=== PATIENT | female | born 1980 ===

== ENCOUNTER 2024-09-28 00:21 | Outpatient (CLI) | payer BC, SELFPAY ==
--- NOTE | 2024-09-28 | DI.MAMMO_ITS ---
Exam(s) MG MAMMO SCREENING 60 MIN DUR EXAM: MG MAMMO SCREENING 60 MIN DUR CLINICAL HISTORY: Screening, Z12.31; pt has trouble standing, cannot sit in a backless chair TECHNIQUE: Mammograms were interpreted according to the usual protocol including computer analysis with CAD system, tomosynthesis and C-view imaging. COMPARISON: None FINDINGS: The breasts are composed of mainly fatty density , Breast Density category A. Positioning was challenging due to patient inability to stand. Exam was performed in a wheelchair. No suspicious masses or suspicious microcalcifications are seen. No skin thickening or abnormal axillary lymph nodes are seen. IMPRESSION: BI-RADS Category 1, Negative mammogram Yearly screening mammography is recommended. Breast Density- Category A - The breast are almost entirely fatty. Breast density Category C or D implies that the patient has dense breast tissue. Dense breast tissue can make it harder to find cancer on a mammogram. Dense breast tissue is also associated with an increased risk of breast cancer. This information about the result of the mammogram report was provided to the patient to raise their awareness. Use this report when you speak with the patient about their risks for breast cancer, which includes their family history. At that time, you may recommend additional screening tests (Ultrasound or MRI) as these tests may add significant information. A negative radiographic report should not delay biopsy if a dominant or clinically suspicious mass is present. Up to ten percent of cancers are not identified on mammography. A negative report may reinforce clinical impression. Adenosis and dense breasts may obscure an underlying neoplasm. False positive reports average 6 to 10%. Patient will receive a letter notifying them of these results.
== END 2024-09-28 00:41 ==
PROVIDERS: PCP Nurse Practitioner Family; Visit Provider Nurse Practitioner Family
DX: Z12.31 Encounter for screening mammogram for malignant neoplasm of breast (principal); R92.313 Mammographic fatty tissue density, bilateral breasts
CPT/HCPCS: 77063; 77067

== ENCOUNTER 2025-01-01 04:54 | Outpatient (CLI) | payer BC, SELFPAY ==
[2025-01-01 14:09] LABS: Abs Immature Grans 0.10 10^3/uL (0.0-0.06); HCT 29.3 % (36.0-46.0); HGB 9.7 g/dL (11.2-15.7); MCH 29.7 pg (27.0-33.0); MCHC 33.1 % (32.0-36.0); MCV 90 fL (80-95); MPV 9.6 fL (8.0-11.0); Platelet Count 106 10^3/uL (130-400); RBC 3.27 10^6/uL (3.93-5.22); RDW 16.1 % (11.7-14.6); RDW-SD 53.2 fL; WBC 9.62 10^3/uL (4.4-10.8)
[2025-01-01 14:38] LABS: Immature Grans % 0.0 %; RBC Morphology Normal
[2025-01-01 14:45] LABS: ALT 30 U/L (14-59); AST 31 U/L (15-37); Albumin 1.8 g/dL (3.4-5.0); Alkaline Phosphatase 144 U/L (46-116); Anion Gap 9.8 mmol/L (3-11); BUN 9 mg/dL (7-18); Bilirubin, Total 2.1 mg/dL (0.2-1.0); CO2 28.2 mmol/L (21.0-32.0); Calcium 8.7 mg/dL (8.5-10.1); Chloride 95 mmol/L (98-107); Estimated GFR 148.75 (mL/min/1.73m2); Glucose 93 mg/dL (74-106); Potassium 4.1 mmol/L (3.5-5.1); Sodium 133 mmol/L (136-145); Total Protein 6.6 g/dL (6.4-8.2)
[2025-01-01 17:18] LABS: LDH 191 U/L (81-234)
== END 2025-01-01 04:55 ==
LOC: LBO 01-02 04:55
PROVIDERS: PCP Nurse Practitioner Family; Visit Provider Internal Medicine
DX: D59.5 Paroxysmal nocturnal hemoglobinuria [Marchiafava-Micheli] (principal)
CPT/HCPCS: 36415; 80053; 83010; 83615; 85025

== ENCOUNTER 2025-01-09 11:30 | Outpatient (CLI) | payer BC, SELFPAY ==
[2025-01-09] MEDS: Normal Saline Flush 10 ML SYR IVP (12:18)
[2025-01-09] MEDS: Omnipaque 350 MG/ML 500 ML BTL-Imaging package IJ (12:18)
[2025-01-09] MEDS: Normal Saline - Diluent 50 ML VIAL IJ (12:18)
--- NOTE | 2025-01-09 12:41 | DI.CT_ITS ---
Exam(s) CT CHEST PE CTA EXAM: CT CHEST PE CTA CLINICAL HISTORY: SHORTNESS OF BREATH, R06.02, ? PE. TECHNIQUE: Imaging Protocol: Axial CT angiography was performed with multi- slice acquisition and multi-planar reconstructions as well as axial, coronal and sagittal MIP reconstructions. Computer aided detection (CAD) was utilized. CONTRAST MATERIAL: Intravenous: Omnipaque 350 Contrast volume:75 ml COMPARISON: No exams were available for comparison FINDINGS: Pulmonary Arteries: No evidence of filling defect to suggest pulmonary emboli. Mediastinum and Paige: No dominant adenopathy or fluid collection. Pulmonary parenchyma: Large pleural effusion, occupying nearly the entire chest. This causes mediastinal shift toward the right. There is severe atelectasis of the left lung. There are few air pockets noted within the effusion. No dominant measurable mass. Pleura: Large left pleural effusion, occupying nearly in the nearly the entire chest. There is a small right pleural effusion. Heart: The heart is not dilated. No coronary artery calcifications are seen. Aorta: Ascending aorta mildly dilated to 3.5 cm. No dissection. Upper abdomen: No acute findings. Bones: Rods extending from thoracic through lumbar spine. There are few sclerotic foci in the right ribs. There is a sclerotic focus in a midthoracic vertebral body. Tubes, Catheters, and Lines: None Soft tissues: Mild edema in the soft tissues overlying the left lower ribs. IMPRESSION: No evidence of pulmonary embolism. Large left pleural effusion occupying nearly the entire left chest with severe left atelectasis and [id number] midline shift. No mass is visible. There are few sclerotic bony lesions could represent sclerotic metastases. Findings called to Aruna Calix, referring provider. RADIATION DOSE DELIVERED: 423.49mGy.cm Total DLP DATA REPOSITORY: All CT scans at this facility are submitted to the National Radiology Data Registry (NRDR) Dose Index Registry (DIR) with the [employer] (A[employer]). RADIATION OPTIMIZATION: All CT scans at this facility use at least one of these dose optimization techniques: automated exposure control; mA and/or kV adjustment per patient size (includes targeted exams where dose is matched to clinical indication); or iterative reconstruction.
[2025-01-09 13:05] LABS: Abs Immature Grans 0.03 10^3/uL (0.0-0.06); HCT 25.3 % (36.0-46.0); HGB 7.9 g/dL (11.2-15.7); Immature Grans % 0.5 %; MCH 29.6 pg (27.0-33.0); MCHC 31.2 % (32.0-36.0); MCV 95 fL (80-95); MPV 8.9 fL (8.0-11.0); Platelet Count 164 10^3/uL (130-400); RBC 2.67 10^6/uL (3.93-5.22); RDW 16.2 % (11.7-14.6); RDW-SD 55.4 fL; WBC 5.60 10^3/uL (4.4-10.8)
[2025-01-09 13:33] LABS: D-Dimer 2721 ng/mlFEU (<500)
[2025-01-09 13:41] LABS: Hypochromasia 1+
[2025-01-09 14:03] LABS: ALT 49 U/L (14-59); AST 26 U/L (15-37); Albumin 1.8 g/dL (3.4-5.0); Alkaline Phosphatase 95 U/L (46-116); Anion Gap 9.5 mmol/L (3-11); BUN 5 mg/dL (7-18); Bilirubin, Total 1.2 mg/dL (0.2-1.0); CO2 26.5 mmol/L (21.0-32.0); Calcium 7.9 mg/dL (8.5-10.1); Chloride 97 mmol/L (98-107); Estimated GFR 148.75 (mL/min/1.73m2); Glucose 62 mg/dL (74-106); LDH 147 U/L (81-234); NT-proBNP 573 pg/mL (<300); Potassium 3.2 mmol/L (3.5-5.1); Sodium 133 mmol/L (136-145); Total Protein 6.1 g/dL (6.4-8.2)
== END 2025-01-09 11:50 ==
PROVIDERS: PCP Nurse Practitioner Family; Visit Provider Nurse Practitioner Family
DX: R06.02 Shortness of breath (principal); J90 Pleural effusion, not elsewhere classified
CPT/HCPCS: 71275; 80053; 83010; 83615; 83880; 85025; 85379

== ENCOUNTER 2025-01-09 13:08 | Inpatient (IN) | payer BC, SELFPAY ==
[2025-01-09] VITALS (27 sets, daily range): BP systolic 87–167; BP diastolic 62–118; PULSE 60–124; RESP 13–25; TEMP 36.4–37.1; O2SAT 93–99
--- NOTE | 2025-01-09 13:45 | RT.EKG_ITS ---
APPROVED REPORT Exam: Resting ECG Reason for Exam: chest pain Patient Location: E HR:115 bpm ECG Measurements Heart Rate 115 AXIS ID 121 P 31 QRSd 88 QRS 31 QT 317 T 17 QTc 440 Conclusion Sinus tachycardia...rate> 99 I have reviewed and interpreted ECG and agree with software generated interpretation.
[2025-01-09 14:33] LABS: INR 1.1 (0.9-1.1); PTT Activated 21.3 sec (20.6-30.2); Prothrombin Time 10.8 sec (9.1-11.1)
[2025-01-09 14:36] LABS: NT-proBNP 570 pg/mL (<300); Troponin I 8 ng/L (<or=51)
--- NOTE | 2025-01-09 15:10 | ED.GENADUL_ITS ---
Discharge Plan Disposition Patient Disposition: Admit to [facility] Condition: Good Discharge Details Clinical Impression: Pleural effusion on left Primary Care Provider: Aruna Calix ED Provider: Kevin Snyder Home Meds and New Rx's Prescriptions: No Action Fabhalta 200 mg capsule 200 mg PO BID Rx Instructions: 45 and 1944 venlafaxine 37.5 mg capsule,extended release 24hr 37.5 mg PO QAM Patient Comments: TAKE 1 CAPSULE BY MOUTH EVERY DAY albuterol sulfate 2.5 mg /3 mL (0.083 %) solution for nebulization 2.5 mg inhalation Q6H PRN (Reason: shortness of breath or wheezing) Patient Comments: USE 3 ML VIA NEBULIZER EVERY 4 HOURS NEEDED albuterol sulfate 90 mcg/actuation HFA aerosol inhaler 2 puff INHALATION Q4H PRN (Reason: shortness of breath or wheezing) Patient Comments: INHALE 2 PUFFS BY MOUTH EVERY 4 TO 6 HOURS budesonide-formoterol 160-4.5 mcg/actuation HFA aerosol inhaler 1 puff INHALATION PNV no.95-ferrous fumarate-FA [] 28 mg iron- 800 mcg tablet 1 tab PO DAILY ibuprofen [Advil] 200 mg tablet 400 mg PO TID-QID PRN (Reason: fever or pain) folic acid 1 mg tablet 1,000 mcg PO DAILY loratadine [Claritin] 10 mg tablet 10 mg PO DAILY acetaminophen 325 mg capsule 650 mg PO Q6H PRN (Reason: fever or pain) coQ10 (ubiquinol) [Qunol Román CoQ10] 100 mg capsule 100 mg PO DAILY HPI General Date/Time Provider Initiated Documentation: 01/09/25 13:23 . HPI Narrative: This is a 44-year-old female with a past medical history of muscular dystrophy, with chronic weakness of the upper and lower extremities, paroxysmal nocturnal hemoglobinuria, who is managed by [facility] and is currently on Ravulizumab who presents today for evaluation of shortness of breath and left-sided chest pain. Patient states that 3 weeks ago she developed an upper respiratory infection. She was started on azithromycin and oral prednisone. She slightly improved with her symptomatology after medication. However 2 weeks ago she noticed swelling over her upper and lower extremities, as well as her abdomen which is atypical. She then slowly developed left-sided chest discomfort, continued mild cough, and some shortness of breath. She had a CTA ordered for her, and she had that today. Blood work had been relatively stable. CTA showed evidence of a massive left-sided pleural effusion, and new she was sent to the ER for further assessment. She denies any other complaints otherwise. No history of blood clots. She is not on any anticoagulants. She normally fully utilizes a wheelchair for all movement activity and has full assist from a family loved 1. She has no other complaints otherwise. She denies any history of pleural effusions in the past. She denies current fever or chills. Related Data Home Medications ?Medication ?Instructions ?Recorded ?Confirmed acetaminophen 325 mg capsule 650 mg PO Q6H PRN fever o r pain 01/09/25 01/09/25 albuterol sulfate 2.5 mg/3 mL 2.5 mg inhalation Q6H VT N 01/09/25 01/09/25 (0.083 %) solution for nebulization shortness of breat h or wheezing albuterol sulfate 90 mcg/actuation 2 puff inhalation Q 4H PRN 01/09/25 01/09/25 aerosol inhaler shortness of breath or wheez ing budesonide-formoterol HFA 160 1 puff inhalation HS 05/0501/09/25 mcg-4.5 mcg/actuation aerosol inhaler coQ10 (ubiquinol) 100 mg capsule 100 mg PO DAILY 01/0901/09/25 (Qunol Román CoQ10) folic acid 1 mg tablet 1,000 mcg PO DAILY 01/09/25 01/09/25 ibuprofen 200 mg tablet (Advil) 400 mg PO TID-QID PRN fever or pain 01/09/25 01/09/25 iptacopan 200 mg capsule (Fabhalta) 200 mg PO BID 05/0501/09/25 loratadine 10 mg tablet (Claritin) 10 mg PO DAILY 05/0501/09/25 vit no.95-ferrous 1 tab PO DAILY 01/09/2505/05 fumarate 28 mg-folic acid 800 mcg tablet () venlafaxine 37.5 mg 37.5 mg PO QAM 01/09/2505/05 capsule,extended release 24 hr Allergies Allergy/AdvReac Type Severity Reaction Status Date / Time ciprofloxacin (From Cipro) Allergy Intermediate Topical Verified 01/09/25 13:28 Irritation codeine Allergy Intermediate vomit Verified 01/09/25 13:28 General Stated Complaint: SOB JOESPH: 2 Exam Narrative Exam Narrative: 1.Const: Well-nourished, Well-developed, appearing stated age 2.Eyes: PERRL, no conjunctival injection, and symmetrical lids. 3.ENT: Atraumatic external nose and ears. Moist MM. Neck: Symmetric, trachea midline, No thyromegaly. 4.CVS: +S1/S2, Peripheral pulses 2+ and equal in all extremities. Brisk c apillary refill in all extremities. 5.RESP: Unlabored respiratory effort. Clear to auscultation bilaterally. No wheezes rales or rhonchi 6.GI: Soft, Nontender/Nondistended, No hepatosplenomegaly. No guarding or rebound. 7.MSK: Normocephalic/Atraumatic, Extremities w/o deformitY. No significant movement of the lower extremities, limited movement of the upper extremities. Patient demonstrates 1-2 pitting edema of the lower extremities bilaterally without significant focal tenderness. 8.Skin: Warm, Dry. No rashes or lesions. 9.Neuro: color room attendant II-XII grossly intact. Sensation grossly intact, no focal neurologic deficits. 10.Psych: (AAO) x3. Appropriate mood and affect Course Vital Signs Vital signs: Vital Signs Temperature 37.1 C 01/09/25 13:24 Pulse 119 H 01/09/25 13:24 Respiratory Rate 18 01/09/25 13:24 Blood Pressure 167/88 H 01/09/25 13:24 Pulse Oximetry 97 01/09/25 13:24 Temperature 37.1 C 01/09/25 14:09 Pulse 120 H 01/09/25 14:10 Pulse 120 H 01/09/25 14:10 Respiratory Rate 23 01/09/25 14:10 Respiratory Effort Incrsd Work of Breathing 01/09/25 14:10 Respiratory Depth Normal 01/09/25 14:10 Respiratory Pattern Normal 01/09/25 14:10 Blood Pressure 167/88 H 01/09/25 14:09 Blood Pressure Mean 128 01/09/25 14:04 Blood Pressure Position Sitting 01/09/25 14:09 Pulse Oximetry 98 01/09/25 14:10 Oxygen Delivery Method Room Air 01/09/25 14:09 Lab/Test Results Lab/Test Results: Laboratory Tests Range/Units 01/09/25 14:05 PT (9.1-11.1) sec 10.8 INR (0.9-1.1) 1.1 APTT (20.6-30.2) sec 21.3 Troponin I (<or=51) ng/L 8 NT-Pro-B Natriuret Pep (<300) pg/mL 570 H Medical Decision Making This is a 44-year-old female with a past medical history of muscular dystrophy, with chronic weakness of the upper and lower extremities, paroxysmal nocturnal hemoglobinuria, who is managed by [facility] and is currently on Ravulizumab who presents today for evaluation of shortness of breath and left-sided chest pain. Patient states that 3 weeks ago she developed an upper respiratory infection. She was started on azithromycin and oral prednisone. She slightly improved with her symptomatology after medication. However 2 weeks ago she noticed swelling over her upper and lower extremities, as well as her abdomen which is atypical. She then slowly developed left-sided chest discomfort, continued mild cough, and some shortness of breath. She had a CTA ordered for her, and she had that today. Blood work had been relatively stable. CTA showed evidence of a massive left-sided pleural effusion, and new she was sent to the ER for further assessment. She denies any other complaints otherwise. No history of blood clots. She is not on any anticoagulants. She normally fully utilizes a wheelchair for all movement activity and has full assist from a family loved 1. She has no other complaints otherwise. She denies any history of pleural effusions in the past. She denies current fever or chills. Exam demonstrates well-appearing female, mildly tachycardic, slightly hype rtensive, diminished lung sounds on the left. CT scan shows evidence of a large left pleural effusion occupying the entire left chest cavity with severe atelectasis and [id number] midline shift. She does have mild tachycardia, but no hypotension. No evidence of shock. Repeat additional blood work was performed in addition to what was done outpatient this morning which can be evaluated in the system. PT PTT and INR normal, serial troponins are normal, proBNP is mildly elevated at 570, but no other significant abnormality. Platelets are stable, hemoglobin is stable. Patient does not currently show clinical evidence to suggest tamponade physiology. We did reach out to aeronautics commission director Dr. Katz, and he is not currently available in the hospital, but he would be happy to come by tomorrow morning for consult and potential thoracentesis. Did speak with surgery Dr. Mcfarlane, and through shared decision making process, there is concern that it would be more ideal for the patient and have potential better outcome due to the nature of the effusion to have pulmonology performed the thoracentesis tomorrow out of concern for potential need for more permanent drain placement. I do feel that this is reasonable given the patient's current debility. I did let pulmonology know the plan, and they will evaluate the patient tomorrow. I did speak with the hospitalist Dr. Salgado, he agrees with the assessment and plan. We will diurese in the meantime and give 20 of Lasix IV. Patient will be monitored and admitted. Cause of the effusion is uncertain, but differential includes parapneumonic effusion, less likely bleeding from rib fracture, potential serous effusion from malignancy. I have extensively reviewed the treatment plan with the patient. I have addressed all patient concerns at this time. I have also discussed the plan with the admitting physician and they agree with the current assessment and plan and have agreed to assume responsibility for the patient. All parties demonstrate verbal understanding and agreement with our assessment and plan at this time. The documentation in this chart was dictated using [employer] dictation software. Please excuse any dictation errors. FINDINGS: Pulmonary Arteries: No evidence of filling defect to suggest pulmonary emboli. Mediastinum and Paige: No dominant adenopathy or fluid collection. Pulmonary parenchyma: Large pleural effusion, occupying nearly the entire chest. This causes mediastinal shift toward the right. There is severe atelectasis of the left lung. There are few air pockets noted within the effusion. No dominant measurable mass. Pleura: Large left pleural effusion, occupying nearly in the nearly the entire chest. There is a small right pleural effusion. Heart: The heart is not dilated. No coronary artery calcifications are seen. Aorta: Ascending aorta mildly dilated to 3.5 cm. No dissection. Upper abdomen: No acute findings. Bones: Rods extending from thoracic through lumbar spine. There are few sclerotic foci in the right ribs. There is a sclerotic focus in a midthoracic vertebral body. Tubes, Catheters, and Lines: None Soft tissues: Mild edema in the soft tissues overlying the left lower ribs. IMPRESSION: No evidence of pulmonary embolism. Large left pleural effusion occupying nearly the entire left chest with severe left atelectasis and [id number] midline shift. No mass is visible. There are few sclerotic bony lesions could represent sclerotic metastases. Findings called to Aruna Calix, referring provider. PFSH All Active Problems (Updated 01/09/25 @ 17:01 by Kevin Snyder DO) Pleural effusion on left (Acute) Hemolytic anemia (Acute) a/w [facility] Medical History (Updated 01/09/25 @ 17:01 by Kevin Snyder DO) Paroxysmal nocturnal hemoglobinuria Type II spinal muscular atrophy Surgical History (Updated 01/09/25 @ 16:57 by López Brewer) Hx of spinal surgery Family History (Updated 01/09/25 @ 16:56 by López Brewer) Paternal Grandfather Colon cancer Social History Smoking/Tobacco Use Status: Never Smoking risk assessment performed?: Yes Alcohol Intake: never Drug use: Never Housing: house Do you feel safe at home: Yes Do you feel safe in your relationship?: Yes Additional Social history: Lives in [place] with and 2 kids 8 and 5 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
--- NOTE | 2025-01-09 15:30 | DI.RAD_ITS ---
Exam(s) XR CHEST 2V PA LATERAL EXAM: XR CHEST 2V PA LATERAL CLINICAL HISTORY: Surgery requested for additional view. TECHNIQUE: 2D digital imaging was performed. COMPARISON: CT CT CHEST PE CTA from 01/09/2025 FINDINGS: 2 views: There is almost complete opacification of the left hemithorax consistent with the large left pleural effusion seen on chest CT scan earlier same date.. There is almost complete collapse of the entire left lung. There is shift of midline structures including the heart into the right hemithorax. The right lung is clear. No obvious pleural effusion on the right side although tiny amount of right pleural fluid is noted on today's CT scan. There is no evidence of pulmonary edema. There are Nino rods in the spine again noted. There are no fractures evident. IMPRESSION: Very large left pleural effusion filling almost the entire left hemithorax with collapse of the ipsilateral left lung and shift of mediastinal structures including the heart to the right side. The right lung is clear. DATA REPOSITORY: RADIATION DOSE DELIVERED:
[2025-01-09 15:43] LABS: Troponin I 8 ng/L (<or=51)
--- NOTE | 2025-01-09 16:22 | TELEP.MEDREC ---
Date of service: 01/09/25 Time of Service: 16:22 Telepharmacy Home Med Rec Allergies Allergies: ciprofloxacin (From Cipro) Allergy (Intermediate, Verified 01/09/25 13:28) Topical Irritation codeine Allergy (Intermediate, Verified 01/09/25 13:28) vomit Interview Person Interviewed: Patient Quality Quality of Interview/Accuracy of Medication List: Excellent Sources Sources used to compile medication list: Essential Medical Medication List and [employer] Changes made to Home Medication List: ADDITIONS: All medications were additions (list was blank before) Additional Notes Additional Notes: Pt was an excellent historian. Recommended Changes Attestation: The home medication list is now updated to the best of my knowledge and is ready to be reconciled by the provider. Please contact the TelePharmacy Medication Reconciliation Pharmacist at for any questions.
--- NOTE | 2025-01-09 16:55 | W.PM.HP.N ---
Date of service: 01/09/25 Time of Service: 16:55 Assessment and Plan Assessment and plan (1) Pleural effusion on left: Status: Acute Assessment and plan: Large symptomatic effusion. Started in setting of respiratory infection 3 weeks ago. Acute sympotms have resolved but SOB and edema have developed. This is possibly parapneumonic, will treat for pneumnonia with ceftriaxone and doxycycline (had azithro as outpatient) She has tapered off her second course of steroids, will not resume this. Atypical infection including fungal as well as malignancy is in the differential, consider repeat CT after effusion drained. BNaP elevated and some systemic edema, but unilateral effusion speaks agains CHF. Left side not c/w liver disease causing. Dose of furosemide ordered in the ED, but will not continue diuresis for now. Get echocardiogram. Case reviewed with Pulmology and Surgery in ED, plan possible catheter drainage with pulmonology 01/10. NPO at [place] monitor on tele (2) Hemolytic anemia: Status: Acute Assessment and plan: History of iron deficiency as well as hemolysis related to paroxysmal nocturnal hemoglobinuria. Her current anemia is below previous hemoglobin of 12.9 (September 2024) and some bilirubinemia c/w active hemolysis (bili 0.6 in September). This could be contributing to her symptoms. 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 Get iron levels, supplement if necessary. Transfuse for <7 hgb (3) Type II spinal muscular atrophy: Assessment and plan: She is wheelchair dependant, uses device for transfer, will need assistance especially with furosemide if urinating frequently. (4) Asthma: Assessment and plan: Not clearly active, continue (5) Anxiety: Assessment and plan: controlled, continue venlafaxine. (6) DVT prophylaxis: Status: Acute Assessment and plan: SCDs until after thoracentesis/drain (7) Discharge planning issues: Status: Acute Assessment and plan: Pending response to thoracentesis and antibiotics. History of Present Illness History of Present Illness Chief Complaint: short of breath, cough Narrative: 44 yo F wheelchair bound with type 2 spinal muscular atrophy, chronic anemia a/w paroxysmal nocturnal hemoglobinuria, and asthma who has been having cough for 3 weeks and increased dyspnea for the past week, outpatient CT showed large left pleural effusion. This started with febrile illess around 9/14, 2 days of fever, nausea/vomiting, and diarrhea along with some postnasal drip. These symptoms resolved, but she has had a cough since then. She went into PCP 12/27 and had negative influenza and COVID testing, given prednisone 40mg daily for 1 week and azithro x 5 days. She did not improve and returned 01/03. At that point she was given prednisone taper. She started feeling more short of breath this week, more fatigued and returned 01/09, sent for labs and STAT CT that was done this morning, sent to ED when this showed large effusion. She has also noted increased swelling in feet and hands over the past 1-2 weeks. Using her inhaler and nebulizer, only helping a little. No sputum or blood in cough. She has chest pain on right side mildly, only with deep breath, cough. 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, treated with steroids/IVIG Paroxysmal nocturnal hemoglobinuria Type II spinal muscular atrophy Surgical History (Updated 01/09/25 @ 17:05 by López Brewer) S/P tubal ligation S/P cholecystectomy 2006 Hx of spinal surgery metal rods in back x 2 Family History (Updated 01/09/25 @ 17:04 by López Brewer) Paternal Grandfather Colon cancer Father Diabetes Social History (Updated 01/09/25 @ 16:58 by López Brewer) Smoking/Tobacco Use Status: Never Smoking risk assessment performed?: Yes Alcohol Intake: never Drug use: Never Housing: house Do you feel safe at home: Yes Do you feel safe in your relationship?: Yes Additional Social history: Lives in [place] with and 2 kids 8 and 5 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 Meds Allergies and Home Medications Allergies Allergy/AdvReac Type Severity Reaction Status Date / Time ciprofloxacin (From Cipro) Allergy Intermediate Topical Verified 01/09/25 13:28 Irritation codeine Allergy Intermediate vomit Verified 01/09/25 13:28 Home Medications ?Medication ?Instructions ?Recorded ?Confirmed ?Type acetaminophen 325 mg capsule 650 mg PO Q6H PRN fever or pain 01/09/25 01/09/25 History albuterol sulfate 2.5 mg/3 mL 2.5 mg inhalation Q6H PRN 01/09/25 01/09/25 History (0.083 %) solution for nebulization shortness of breath or wheezing albuterol sulfate 90 mcg/actuation 2 puff inhalation Q4H PRN 01/09/25 01/09/25 History aerosol inhaler shortness of breath or wheezing budesonide-formoterol HFA 160 1 puff inhalation HS 01/09/25 01/09/25 History mcg-4.5 mcg/actuation aerosol inhaler coQ10 (ubiquinol) 100 mg capsule 100 mg PO DAILY 01/09/25 01/09/25 History (Qunol Román CoQ10) folic acid 1 mg tablet 1,000 mcg PO DAILY 01/09/25 01/09/25 History ibuprofen 200 mg tablet (Advil) 400 mg PO TID-QID PRN fever or pain 01/09/25 01/09/25 History iptacopan 200 mg capsule (Fabhalta) 200 mg PO BID 01/09/25 01/09/25 History loratadine 10 mg tablet (Claritin) 10 mg PO DAILY 01/09/25 01/09/25 History vit no.95-ferrous 1 tab PO DAILY 01/09/25 01/09/25 History fumarate 28 mg-folic acid 800 mcg tablet () venlafaxine 37.5 mg 37.5 mg PO QAM 01/09/25 01/09/25 History capsule,extended release 24 hr Exam Narrative Exam Narrative: GEN: Alert and oriented x 4, pleasant and cooperative, stitting up in wheelchair, gives linear history. Comfortable appearing and in no acute distress at rest. HEENT: Head atraumatic. Conjunctiva clear, no icterus. PEERL, EOMI. no rhinorrhea. MMM, OP benign. Neck is supple with no masses or lymphadenopathy, trachea midline, no elevation JVP notable LUNGS: Clear on right, diminished on left with no audible sounds inferiorly. No wheezes/rales CV: Regular but tachycardic with no murmurs, gallops, or rubs. ABD: active bowel sounds, soft, nontender and nondistended. No masses. EXT: no cyanosis, clubbing. 1+ anni pitting edema in ankles/feet, hands look puffy but no pitting MSK: No joint redness or swelling. Healed scar along whole spine in back. NEURO: CN 2-12 grossly intact. She has limited use of 4 extremities. Normal speech. No tremor SKIN: No rashes or open wounds. PSYCH: normal mood and affect, normal thought process Results Imaging CT scan - chest: report reviewed (No evidence of pulmonary embolism. Large left pleural effusion occupying nearly the entire left chest with severe left atelectasis and [id number] midline shift. No mass is visible. There are few sclerotic bony lesions could represent sclerotic metastases. ) and image reviewed Labs Labs: Laboratory Results - last 24 hr 01/09/25 01/09/25 14:05 15:09 PT 10.8 INR 1.1 APTT 21.3 Troponin I 8 8 NT-Pro-B Natriuret Pep 570 H Last Vital Signs Temp 37.1 C 01/09/25 14:09 Pulse 121 H 01/09/25 15:20 Resp 23 01/09/25 15:10 BP 135/106 H 01/09/25 15:16 Pulse Ox 99 01/09/25 15:20 Time Spent Time spent with Patient: >75 minutes Time was spent: preparing to see the patient(eg.review tests), obtaining and/or reviewing separately otained hiistory, ordering medications,tests, procedures, referring, communicating with other health animal care assistant, indepentently interpreting results, counseling the patient and care coordination
[2025-01-09] MEDS: Furosemide 20 MG/2 ML VIAL IVP (17:17)
[2025-01-09 17:35] LABS: Troponin I 12 ng/L (<or=51)
[2025-01-09] MEDS: cefTRIAXone 2 GM/50 ML BAG IVPB (17:39)
[2025-01-09] MEDS: Ondansetron 4 MG/2 ML VIAL (17:40)
--- NOTE | 2025-01-09 18:28 | W.PC.ACHO ---
Registration Status: REG ER Primary Language: Preferred Language: ED Information & Data Chief Complaint SOB 01/09/25 15:20 Triage Note Has not been feeling well 01/09/25 13:24 [id number], increased edema, pains in left shoulder, SOB, Large left pleural effusion per CT scan today. Medical / Surgical History (Last Updated 01/09/25 @ 17:11 by López Brewer) Anxiety Asthma Hypertension resulting from in-vitro fertilization History of ITP Paroxysmal nocturnal hemoglobinuria Type II spinal muscular atrophy (Last Updated 01/09/25 @ 17:05 by López Brewer) S/P tubal ligation S/P cholecystectomy Hx of spinal surgery Most Recent Vital Signs Temperature 98.7 F 01/09/25 14:09 Pulse 116 H 01/09/25 18:10 Pulse 60 01/09/25 18:10 Respiratory Rate 20 01/09/25 17:40 Respiratory Effort Incrsd Work of Breathing 01/09/25 14:10 Respiratory Depth Normal 01/09/25 14:10 Respiratory Pattern Normal 01/09/25 14:10 Blood Pressure 129/86 01/09/25 18:10 Blood Pressure Mean 109 01/09/25 15:16 Blood Pressure Position Sitting 01/09/25 14:09 Pulse Oximetry 98 01/09/25 17:40 Oxygen Delivery Method Room Air 01/09/25 14:09 Allergies ciprofloxacin (From Cipro) Allergy (Intermediate, Verified 01/09/25 13:28) Topical Irritation codeine Allergy (Intermediate, Verified 01/09/25 13:28) vomit Active Medications Generic Name Dose Route Start Last Admin Trade Name Freq PRN Reason Stop Dose Admin Ceftriaxone Sodium/Dextrose 2 gm in 50 mls @ 100 mls/hr 01/09/25 18:00 01/09/25 17:39 Rocephin IVPB 100 mls/hr Q24H REBEKAH Administration IV IV Catheter Type [Right Saline Lock Antecubital] IV Catheter Gauge [Right 18 Antecubital] Diet Orders Category Date Time Status Nothing Per Oral [DIET] Nutrition 01/10/25 00:01 Ordered Regular/Normal [DIET] Nutrition 01/09/25 Dinner Active Diagnostics 01/09/25 01/09/25 01/09/25 Range/Units 17:13 15:09 14:05 PT 10.8 (9.1-11.1) sec INR 1.1 (0.9-1.1) APTT 21.3 (20.6-30.2) sec Troponin I 12 8 8 (<or=51) ng/L NT-Pro-B Natriuret Pep 570 H (<300) pg/mL Intake and Output - 24 Hour Total 01/09/25 13:08 thru 01/09/25 13:44 Weight 187 lb 13.341 oz Falls Risk Assessment History of Falls Previous History 01/09/25 14:09 Contributing Factors Unstable,Impairments 01/09/25 14:09 Ambulatory Aids Independent 01/09/25 14:09 Tubes/Lines With any additional score 01/09/25 14:09 Gait Evaluation W/any additional score 01/09/25 14:09 Cognition No cognitive impairment 01/09/25 14:09 Fall Total Score 61 01/09/25 14:09 Level of Risk High Risk 01/09/25 14:09 Problems (Last Updated 01/09/25 @ 17:11 by López Brewer) Discharge planning issues (Acute) DVT prophylaxis (Acute) Pleural effusion on left (Acute) Hemolytic anemia (Acute) v v v v v v v v v Sending and/or Receiving Nurses: Please use comment section below to note any information pertinent to the patient hand-off not included above. Information / Comments: Report received from: Moise Colunga RN
[2025-01-09] MEDS: Doxycycline Hyclate 100 MG CAP PO (21:04)
[2025-01-09] MEDS: Ibuprofen 200 MG TAB 400 MG PO (21:04)
[2025-01-10] VITALS (7 sets, daily range): BP systolic 105–134; BP diastolic 71–93; PULSE 109–120; RESP 16–20; TEMP 36.4–36.7; O2SAT 95–97
--- NOTE | 2025-01-10 06:00 | DI.US_ITS ---
APPROVED REPORT EXAM: Comprehensive 2D, Doppler, and color-flow Echocardiogram Patient Location: In-Patient Room/Bed: 227 Statement Request Clerk: Maty Pettit RDCS (AE) Indications: Pleural effusion, Peripheral edema, Elevated BNaP Other Information Study Quality: Fair. Technically limited study due to body habitus, imagining was obtained on right side. Limited imaging windows were available.. Conclusion Technically difficult study. Normal left ventricular wall thickness. Left ventricle is hyperdynamic. Visually EF appears 75% or greater Grossly normal right ventricular size and function the atria appear normal in size No significant valvular disease is appreciated There is no significant pericardial effusion Wall motion Left Ventricle The left ventricle is normal size. The overall left ventricular systolic function appears normal. Technically limited imaging. Imaging was obtained right axilla for PLAX. There is normal left ventricular wall thickness. Left ventricle is hyperdynamic Not clearly visualized. Technically limited imaging. LVEF is 60%. Right Ventricle Right ventricle is not well visualized. Right ventricular systolic function could not be assessed. Atria Left atrium is not well visualized. Right atrium is not well visualized. Not clearly visualized. Technically limited imaging. Aortic Valve The aortic valve is normal in structure. Aortic valve is trileaflet. Mitral Valve The mitral valve is normal in structure. Trace mitral regurgitation. Tricuspid Valve The tricuspid valve is normal in structure. There is no tricuspid valve stenosis. Trace tricuspid regurgitation. Unable to assess PA pressure. Pulmonic Valve Pulmonic valve is not well visualized. Great Vessels The aortic root is normal in size. The aortic root is normal in size. The ascending aorta is normal in size. Pericardium Technically limited imaging. 2D Dimensions IVSD d PLAX 1.00 cm F: 0.6-1.0 Ao Root d 2.67 cm F: 2.7 - 3.3 LVPW d PLAX 1.01 cm F: 0.6 - 1.0 Ao Asc Diam d 3.30 cm F: 2.3 - 3.1 LVID d PLAX 3.90 cm F: 3.8 - 5.2 LVDs 2.70 cm F: 2.2 - 3.5 LV EF Teichholz 60.3 % FS 31.65 % LV EDV (Teich) 65.5 mL LV ESV (Teich) 26.0 mL LV Diastology MV E Vmax 0.81 (0.4-1.3 m/s) MV A Vmax 1.05 (0.4-1.3 m/s) E/A Ratio 0.8 Aortic Valve LVOT Diam s 1.85 cm Mitral Valve MV DT 161 (160-240 msec) MV Vmax TIPS 1.07 m/s MV Mean Grad 2.0 (<2mmHg) MV VTI 0.160 m Pulmonary Valve PV Vmax 1.40 (0.5-1.5 m/s) PV Peak Grad 7.9 mmHg PV Mean Tomasz 1.06 m/s PV Mean Grad 4.9 mmHg
[2025-01-10 06:52] LABS: HCT 25.9 % (36.0-46.0); HGB 7.9 g/dL (11.2-15.7); MCH 28.8 pg (27.0-33.0); MCHC 30.5 % (32.0-36.0); MCV 95 fL (80-95); MPV 9.3 fL (8.0-11.0); Platelet Count 163 10^3/uL (130-400); RBC 2.74 10^6/uL (3.93-5.22); RDW 15.9 % (11.7-14.6); RDW-SD 53.7 fL; WBC 5.28 10^3/uL (4.4-10.8)
[2025-01-10 07:12] LABS: Anion Gap 11.5 mmol/L (3-11); BUN 7 mg/dL (7-18); CO2 26.5 mmol/L (21.0-32.0); Calcium 8.1 mg/dL (8.5-10.1); Chloride 97 mmol/L (98-107); Glucose 64 mg/dL (74-106); Magnesium 1.9 mg/dL (1.8-2.4); Sodium 135 mmol/L (136-145)
[2025-01-10 07:37] LABS: Estimated GFR 175.79 (mL/min/1.73m2)
[2025-01-10 07:39] LABS: Potassium 2.9 mmol/L (3.5-5.1)
[2025-01-10] MEDS: Venlafaxine 37.5 MG CAPCR PO (07:53)
[2025-01-10 08:12] LABS: Iron 28 ug/dL (50-170); Total Iron Binding Capacity 158 ug/dL (250-450); Transferrin Sat 18 % (15-50)
[2025-01-10] MEDS: Doxycycline Hyclate 100 MG CAP PO ×2 (08:40→20:11)
[2025-01-10] MEDS: Ibuprofen 200 MG TAB 400 MG PO ×3 (08:40→20:11)
--- NOTE | 2025-01-10 09:11 | PUCON_ITS ---
Documented by User: COCO Castillo 01/10/25 09:53 General Date Of Service Date of service: 01/10/25 Time of Service: 08:00 Reason for Consult: Pleural Effusion Assessment and Plan Assessment and plan (1) Pleural effusion on left: Status: Acute (2) Asthma: Assessment and plan: Assessment: 1. Asthma - on symbicort BID and albuterol HFA and nebs prn, not in an exacerbation, well controlled 2. Pleural effusion - occupies full left chest cavity with near full compression of left lung, could be inflammatory vs viral vs infectious, no clinical suspicion for malignant Recommendations: - continue home maintenance and prn treatment for asthma - large left pleural effusion - Dr. Reyes discussed chest tube vs thoracentesis, given the size of the effusion it would be best to place a chest tube to allow drainage over an interval of time to control possible discomfort due to lung re- expansion and possible reaccumulation of fluid. If infectious in nature, could require intrapleural fibrinolytics in which case a chest tube is required. Plan to send fluid for analysis - cell count, glucose, triglycerides, protein, cultures (bacterial, fungal), cytopathy (3) Paroxysmal nocturnal hemoglobinuria: Status: Acute (4) Dyspnea: Status: Acute History of Present Illness Narrative: 44 year old with past medical history of asthma, Type 2 spinal muscular atrophy, chronic weakness of the upper and lower extremities, paroxysmal nocturnal hemoglobinuria - managed by [facility]. She presents to the ED with SOB and left sided chest pain. Prior to presentation to the ED she had been ill 3 weeks prior requiring steroids and abx. She was experiencing coughing, nausea and vomiting. After starting prednisone, she developed bilateral upper and lower extremity swelling as well as abdominal. This was waxing and waning. She notes one episode of choking on food, but felt she cleared this well. Imaging obtained in the ED reveals large left sided pleural effusion. She reports chest pressure and discomfort, feels SOB. Is anxious about possible procedure for fluid removal. Is other mcmullen comfortable. Difficultly voiding due to baseline chronic weakness. 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, treated with steroids/IVIG Type II spinal muscular atrophy Surgical History (Updated 01/09/25 @ 17:05 by López Brewer) S/P tubal ligation S/P cholecystectomy 2006 Hx of spinal surgery metal rods in back x 2 Family History (Updated 01/09/25 @ 17:04 by López Brewer) Paternal Grandfather Colon cancer Father Diabetes Social History (Updated 01/09/25 @ 16:58 by López Brewer) Smoking/Tobacco Use Status: Never Smoking risk assessment performed?: Yes Alcohol Intake: never Drug use: Never Housing: house Do you feel safe at home: Yes Do you feel safe in your relationship?: Yes Additional Social history: Lives in [place] with and 2 kids 8 and 5 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 Visit Medication and Allergies Active Medications Generic Name Dose Route Start Last Admin Trade Name Freq PRN Reason Stop Dose Admin Acetaminophen 650 mg 01/09/25 16:41 Acetaminophen 325 Mg Tab PO Q4H PRN PRN Albuterol Sulfate 2.5 mg 01/09/25 16:41 Albuterol 2.5 Mg/3 Ml Inh Soln Vial UPD Q2H PRN PRN Albuterol Sulfate 2 puff 01/09/25 16:48 Albuterol Hfa 8 Gm 60 Puff Inh IH Q4H PRN PRN shortness of breath or wheezing Budesonide/Formoterol Fumarate 1 puff 01/09/25 20:00 01/10/25 03:55 Budesonide/Formoterol 160/4.5 6 Gm 60 Puff Inh IH Not Given BID REBEKAH Doxycycline Hyclate 100 mg 01/09/25 20:00 01/10/25 08:40 Doxycycline Hyclate 100 Mg Cap PO 100 mg BID REBEKAH Administration Folic Acid 1 mg 01/10/25 08:30 Folic Acid 1 Mg Tab PO DAILY REBEKAH Ceftriaxone Sodium/Dextrose 2 gm in 50 mls @ 100 mls/hr 01/09/25 18:00 01/10/25 08:40 Rocephin IVPB Infused Q24H REBEKAH Infusion Ibuprofen 400 mg 01/09/25 16:48 01/10/25 08:40 Ibuprofen 200 Mg Tab PO 400 mg QID PRN PRN Administration fever or pain Lidocaine HCl 20 ml 01/10/25 09:00 Lidocaine 1% Multi-Dose 20 Ml Vial IJ DIRECTED REBEKAH Loratadine 10 mg 01/10/25 08:30 Loratidine 10 Mg Tab PO DAILY [facility] Ondansetron HCl 4 mg 01/09/25 17:37 Ondansetron O.D.T. 4 Mg Tabef PO Q8H PRN PRN Pt's Own Coq10 ( 1 each 01/10/25 08:30 Ubiquinol) [Qunol PO Román Coq10] 100 Mg DAILY REBEKAH Capsule Pt's Own Iptacopan [ 1 each 01/09/25 20:00 Fabhalta] 200 Mg PO Capsule BID [facility] Polyethylene Glycol 17 gm 01/09/25 16:35 Polyethylene Glycol 3350 17 Gm Packet PO DAILY PRN PRN Constipation Multivitamins 1 tab 01/10/25 08:30 Multivitamin W/Ca,Fe Tab PO DAILY [facility] Sodium Chloride 0 ml 01/09/25 23:29 Normal Saline Flush 10 Ml Syr IVP PRN PRN Sodium Chloride 0 ml 01/10/25 08:30 Normal Saline Flush 10 Ml Syr IVP BID [facility] Venlafaxine HCl 37.5 mg 01/10/25 08:30 01/10/25 07:53 Venlafaxine 37.5 Mg Capcr PO 37.5 mg QAM REBEKAH Administration Allergies ciprofloxacin (From Cipro) Allergy (Intermediate, Verified 01/09/25 13:28) Topical Irritation codeine Allergy (Intermediate, Verified 01/09/25 13:28) vomit Exam Const General: cooperative, comfortable and no acute distress Resp Effort & Inspection: normal respiratory effort and able to speak in complete sentences Auscultation: breath sounds absent on th left, no rales, no rhonchi and no wheezes Cardio Rate: regular rate Rhythm: regular rhythm Heart Sounds: S1 normal, S2 normal, no gallops, no murmurs and no rubs Extrem Other: Edema of the bilateral hands to mid-forearms, bilateral lower extremity edema. Results Last Vital Signs Temp 98.1 F 01/10/25 07:20 Pulse 109 H 01/10/25 07:20 Resp 16 01/10/25 07:20 BP 134/87 01/10/25 07:20 Pulse Ox 97 01/10/25 07:20 Labs 01/10/25 06:25 01/10/25 06:25 Labs: Laboratory Results - last 24 hr 01/09/25 01/09/25 01/09/25 14:05 15:09 17:13 WBC RBC Hgb Hct MCV MCH MCHC RDW Plt Count MPV PT 10.8 INR 1.1 APTT 21.3 Sodium Potassium Chloride Carbon Dioxide Anion Gap BUN Creatinine Est GFR (CKD-EPI 2020) Glucose Calcium Magnesium Iron TIBC Transferrin % Sat Troponin I 8 8 12 NT-Pro-B Natriuret Pep 570 H 01/10/25 06:25 WBC 5.28 RBC 2.74 L Hgb 7.9 L Hct 25.9 L MCV 95 MCH 28.8 MCHC 30.5 L RDW 15.9 H Plt Count 163 MPV 9.3 PT INR APTT Sodium 135 L Potassium 2.9 L* Chloride 97 L Carbon Dioxide 26.5 Anion Gap 11.5 H BUN 7 Creatinine 0.1 L Est GFR (CKD-EPI 2020) 175.79 Glucose 64 L Calcium 8.1 L Magnesium 1.9 Iron 28 L TIBC 158 L Transferrin % Sat 18 Troponin I NT-Pro-B Natriuret Pep Imaging CT scan - chest: report reviewed and image reviewed Imaging Studies: CTPE reviewed: large left sided pleural effusion with mediastinal shift, nearly fully compression of left lung. POCUS Pulmonology Limited thoracic lung Exam DATE OF EXAM: 01/10/25 TIME OF EXAM: 08:00 PROVIDER THAT PERFORMED THE STUDY: Salinas Reyes IS THIS A REPEAT STUDY: No REASON FOR EXAM: Chest pain, Shortness ofBreath and Pleural Effusion Visualized structures: left lateral and left posterior PERTINENT FINDINGS/IMPRESSION: Present Left pleural effusion Exam complete Documented by User: Salinas Reyes MD 01/10/25 10:43 Assessment and Plan Assessment and plan (1) Pleural effusion on left: Status: Acute (2) Asthma: Assessment and plan: Assessment: 1. Dyspnea - likely due to large left pleural effusion and resultant left lung atelectasis 2. Left pleural effusion - large left effusion on imaging. Etiology unclear at this time. History is concerning for a parapneumonic effusion. She is taking Iptacopan, so at risk of strep infection. Cannot rule out cardiac or malignant etiologies 3. Hx Asthma - per history. No prior PFT's available. Not in exacerbation. Takes symbicort BID and albuterol HFA Recommendations: - continue home maintenance and prn treatment for asthma - large left pleural effusion - discussed chest tube vs thoracentesis, given the size of the effusion it would be best to place a chest tube to allow drainage over an interval of time to control possible discomfort due to lung re-expansion and possible reaccumulation of fluid. If infectious in nature, could require intrapleural fibrinolytics in which case a chest tube is required. Plan to send fluid for analysis - cell count, glucose, triglycerides, protein, cultures (bacterial, fungal), cytopathy. Discussed the risks, benefits, and alternatives of chest tube placement with Mrs. Vargas. She is agreeable to proceed. Will plan to place pigtail cook catheter later this AM - agree with empiric antibiotics for possible pneumonia at this time. Rocephin and doxycycline are reasonable - check urine strep ag, procalcitonin level, and sputum culture (3) Paroxysmal nocturnal hemoglobinuria: Status: Acute (4) Dyspnea: Status: Acute Review of Systems Narrative: 10 pt ROS negative except as noted in HPI PFSH All Active Problems (Updated 01/10/25 @ 10:37 by Salinas Reyes MD) Dyspnea (Acute) Paroxysmal nocturnal hemoglobinuria (Acute) Discharge planning issues (Acute) DVT prophylaxis (Acute) Pleural effusion on left (Acute) Hemolytic anemia (Acute) a/w [facility] Medical History (Updated 01/10/25 @ 10:37 by Salinas Reyes MD) Anxiety Asthma Hypertension diastolic resulting from in-vitro fertilization s/p IVF retrieval x 2 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, treated with steroids/IVIG Type II spinal muscular atrophy Surgical History (Updated 01/09/25 @ 17:05 by López Brewer) S/P tubal ligation S/P cholecystectomy 2006 Hx of spinal surgery metal rods in back x 2 Family History (Updated 01/09/25 @ 17:04 by López Brewer) Paternal Grandfather Colon cancer Father Diabetes Social History (Updated 01/09/25 @ 16:58 by López Brewer) Smoking/Tobacco Use Status: Never Smoking risk assessment performed?: Yes Alcohol Intake: never Drug use: Never Housing: house Do you feel safe at home: Yes Do you feel safe in your relationship?: Yes Additional Social history: Lives in [place] with and 2 kids 8 and 5 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
[2025-01-10] MEDS: POTASSIUM CHLORIDE 20 MEQ/100 ML BAG 50 MEQ IV_INF (10:01)
[2025-01-10] MEDS: Normal Saline Flush 10 ML SYR IVP ×3 (10:01→20:14)
[2025-01-10] MEDS: LORazepam 1 MG TAB PO (10:01)
--- NOTE | 2025-01-10 10:16 | PDOC.CMIN ---
Date of service: 01/10/25 Time of Service: 15:43 Care Management Initial Assmt Initial Assessment Reason for Hospitalization: Pleural effusion Functional Status/Living Situation Patient Presentation: Thao was in bed and awake when CM met with her. She was accompanied by her and her aunt. Thao presented to the ED for evaluation of shortness of breath and left-sided chest pain; See ED documentation. Per report, Thao will be seen by Dr. Reyes who will place a chest tube. Thao currently resides in [place] with her , Jerman, and their two sons, ages 5 and 8. The family recently relocated to [place] after living in [place] for the past 20 years. Thao is under the medical care of a pallet repairer at [facility]. At baseline, she uses a wheelchair and receives full assistance from her for mobility and daily needs. Jerman reports that they have several assistive devices at home, including a lift system, manual Gonsalo lift, and disposable sling. They are requesting a U-Sling Gonsalo lift for inpatient use; the RN has been informed of this request. Jerman expressed concern about the potential need for additional support at home, particularly in managing Thao?s chest tube with transfers. At this time, the family does not have any home health services in place. CM will continue to follow. Town of Residence: [place] Resides with: Spouse Significant Other/Family: Local Caregiver/Guardian: Jerman Vargas - Natural Supports: family Instrumental Activities of Daily Living (ADLs): Requires support Medications Medication Management: No Issues/Barriers identified Physical Functioning/Mobility Assistive Device: Wheelchair Advance Directives Advance Directives: Do you have an Advance Directive: N 08/28/24, 11:32 AD On File at [facility]: N 08/28/24, 11:48 Date Asked 01/09/25 01/09/25, 11:57 AD Date Reviewed COLST On File at [facility] COLST Date Scanned Code Status Resuscitation Status Full Code Portal Pt does not currently have a portal and education provided: Yes Insurance Coverage/Financial Issues Insurance: BC/BS Out of State - [id number] Care Team Visit Care Team Role Provider Type Aruna Calix Primary Care Provider NURSE PRACTITIONER Salinas Reyes MD Other Providers [facility] STAFF PHYSICIAN Kevin Snyder DO Emergency Provider [facility] STAFF PHYSICIAN López Brewer Admit Provider [facility] STAFF PHYSICIAN Attending Provider Discharge Potential Discharge Needs: PCP F/U Appt Anticipated Barriers to Discharge: None Identified Patient/Family Education Needs: Review discharge instructions, discuss Ask Me Three Transportation: Private vehicle Plan: Anticipate thao will be discharged home once medically ready. It is recommended she follow up with her community providers, pulmonology, and discharge plan of care. She will transport via private vehicle by her family. CM will follow. Social Determinants of Health Screening Social Determinants of health last assessed in clinic: 01/10/25 Will the Patient Participate in the Screening?: Unable to obtain Do you worry about having a steady place to live?: choose not to answer Problems where you live: no known problems In the past 12 months, have you had to go without electric, gas, oil or water in your home?: choose not to answer 1. Within the past 12 months, we worried whether our food would run out before we got money to buy more.: Never true 2. Within the past 12 months, the food we bought just didn't last and we didn't have money to get more.: Never true Has lack of transportation kept you from medical appointments or from doing things needed for daily living?: choose not to answer Has anyone in your life made you feel unsafe or unsupported?: choose not to answer How hard is it for you to pay for the very basics like food, housing, medical care, and heating? Would you say it is:: Not hard at all Do you want help finding or keeping work or a job?: I do not need or want help If for any reason you need help with day-to-day activities such as bathing, preparing meals, shopping, managing finances, etc., do you get the help you need?: I don?t need any help How often do you feel lonely or isolated from those around you?: Never Do you speak a language other than Azeri at home?: No Does the patient want assistance with any of the above?: No Health Related Social Needs Health related social needs: material hardship(utilities) (Z59.12) PFSH All Active Problems (Updated 01/10/25 @ 10:37 by Salinas Reyes MD) Dyspnea (Acute) Paroxysmal nocturnal hemoglobinuria (Acute) Discharge planning issues (Acute) DVT prophylaxis (Acute) Pleural effusion on left (Acute) Hemolytic anemia (Acute) a/w [facility] Medical History (Updated 01/10/25 @ 10:37 by Salinas Reyes MD) Anxiety Asthma Hypertension diastolic resulting from in-vitro fertilization s/p IVF retrieval x 2 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, treated with steroids/IVIG Type II spinal muscular atrophy Surgical History (Updated 01/09/25 @ 17:05 by López Brewer) S/P tubal ligation S/P cholecystectomy 2006 Hx of spinal surgery metal rods in back x 2 Family History (Updated 01/09/25 @ 17:04 by López Brewer) Paternal Grandfather Colon cancer Father Diabetes Social History (Updated 01/09/25 @ 16:58 by López Brewer) Smoking/Tobacco Use Status: Never Smoking risk assessment performed?: Yes Alcohol Intake: never Drug use: Never Housing: house Do you feel safe at home: Yes Do you feel safe in your relationship?: Yes Additional Social history: Lives in [place] with and 2 kids 8 and 5 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
[2025-01-10] MEDS: fentaNYL 100 MCG/2 ML VIAL 25 MCG IVP (11:32)
--- NOTE | 2025-01-10 12:14 | PAPNONF_PTH ---
PATIENT: Thao Vargas LOC: U#:[id number] AGE/SX: 44/F ROOM: 227 RE01/09/[address]: López Brewer : 1980 BED: A DIS: 01/17/2025 SPEC #: [id number] RECD: 01/10/25 13:11 STATUS: JESS REPriscilla #: [id number] JOSE A: 01/10/25 12:[address]: López Brewer DEPT: [facility] Cytology RECD BY: Becky Gallo ENTERED: 01/10/25 13:12 SP TYPE: CHAYA MEDRANO DR: Aruna Mcclain Tissues: 1 - BODY FLUID CYTO(NOT S/U/N/EM)[facility] Procedures: BODY FLUID CYTO(NOT SPU/UR/NIP/ENDOM)[facility] Comments: [id number] (TV = 50 ml, SENT FRESH) (REFRIGERATED)
--- NOTE | 2025-01-10 12:15 | DI.RAD_ITS ---
Exam(s) XR PORTABLE CHEST AP EXAM: XR PORTABLE CHEST AP CLINICAL HISTORY: chest tube placement. TECHNIQUE: 2D digital imaging was performed. COMPARISON: Chest x-ray 01/09/2025 FINDINGS: Single AP portable view. There has been interval placement of a drainage catheter in the lower left chest cavity. The size of the large left pleural effusion has slightly decreased and there is left right shift of midline structures evident. No new findings in the opposite-right lung. Nino rods in the thoracolumbar spine are again noted. IMPRESSION: Mild decrease in size of the large left pleural effusion since placement of drainage catheter in the left pleural space. There is also less shift of midline structures towards the opposite-right side. DATA REPOSITORY: RADIATION DOSE DELIVERED:
[2025-01-10 12:34] LABS: Procalcitonin < 0.10 ng/mL
--- NOTE | 2025-01-10 12:50 | W.PM.OP ---
Operative Note Operative Note PRE-OP DIAGNOSIS: Left pleural effusion POST-OP DIAGNOSIS: same PROCEDURE: Chest tube placement, left SURGEON: Salinas Reyes ANESTHESIA TYPE: Local By Surgeon Refer to Anesthesia Record ESTIMATED BLOOD LOSS: 2 Indications: Diagnosis and relief of large left pleural effusion Procedure Description: The procedure risks, benefits, and alternatives were discussed with Mrs. Vargas, who understood and informed consent was obtained. Laboratory studies and radiographs were reviewed. A time-out was performed.? Bedside ultrasound was used to locate an appropriate site for chest tube placement.? The site was marked on the left posterolateral chest wall.? The site was then cleaned and draped in a sterile fashion.? Sterile procedure was followed for the entire procedure. ?Lidocaine was injected subcutaneously for topical anesthesia.? The introducer needle was advanced until fuild was aspirated into the syringe.? The syringe was removed and the guidewire was advanced into the thoracic cavity.? A small 3-4 mm skin incision was made and the tract was dilated.? A 14 Fr chest tube was advanced over the guidewire and the guidewire was removed.? The chest tube was then secured place with a suture.? The insertion site was then covered with a sterile dressing. ?The chest tube was connected to the atrium.? The connections were secured. ~1000 mL of purulent pleural fluid was drained at bedside. The tube was then clamped. A sample was collected and sent for bacterial/afb/fungal cultures, cell count, and cytopathology Follow-up: Clamp chest tube for 15 min then can open to gravity drain Follow up on pleural fluid analysis A chest radiograph was ordered to confirm appropriate chest tube position. Date of Procedure: 01/10/25 POCUS Pulmonology Limited thoracic lung Exam DATE OF EXAM: 01/10/25 TIME OF EXAM: 12:00 PROVIDER THAT PERFORMED THE STUDY: Salinas Reyes IS THIS A REPEAT STUDY: Yes Same provider REASON FOR EXAM: Pleural Effusion and Other Indication: Guidance for chest tube placement Exam complete
[2025-01-10 13:36] LABS: Polynuclear Cells 75 %
[2025-01-10] MEDS: Potassium Chloride 20 MEQ TABCR 40 MEQ PO ×2 (13:46→20:11)
[2025-01-10] MEDS: Lidocaine 1% Multi-Dose 50 ML VIAL (13:47)
--- NOTE | 2025-01-10 13:52 | CHAPLAIN ---
I had a brief visit with Thao. Her parents and another visitor were in the room with her. I explained my role and offered support.
--- NOTE | 2025-01-10 14:58 | PGE_ITS ---
Date of Service Date of service: 01/10/25 Time of Service: 14:59 Assessment and Plan Assessment and plan (1) Pleural effusion on left: Status: Acute Assessment and plan: Large symptomatic effusion. Started in setting of respiratory infection 3 weeks ago and 2 weeks of steroids. Now draining milky fluid c/w empyema. Continue with ceftriaxone and doxycycline (had azithro as outpatient) with cultures pending. Appreciate pulmonary guidance. Expect pain on that side, treat pain, keep the drain open, f/u CXR reassuring. If not healing, would have to transfer for thoracotomy. (2) Hemolytic anemia: Status: Acute Assessment and plan: History of iron deficiency as well as hemolysis related to paroxysmal nocturnal hemoglobinuria. Her current anemia is below previous hemoglobin of 12.9 (September 2024) and some bilirubinemia c/w active hemolysis (bili 0.6 in September). This is typical for her during illnessess and could be contributing to her symptoms. 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 Iron levels close to normal. Continue to monitor. Transfuse for <7 hgb (3) Type II spinal muscular atrophy: Assessment and plan: She is wheelchair dependant, uses device for transfer, will need additional assistance (4) Asthma: Assessment and plan: Not clearly active, continue symbicort (5) Anxiety: Assessment and plan: controlled at baseline, continue venlafaxine. Can get prn anxiolytic for procedures. (6) DVT prophylaxis: Status: Acute Assessment and plan: Now s/p thoracentesis/drain, she has risk factors of decreased mobility and infection, will treat with enoxaparin, monitor plts (7) Discharge planning issues: Status: Acute Assessment and plan: Pending ability to heal empyema on antibiotics, likely several days. Subjective Subjective Patient reports: voiding w/o difficulty; denies diarrhea, nausea, vomiting or fever Interval history since last seen: Events: Had pleural drain placed with Dr. Reyes this morning, given 1mg lorazepam prior for anxiety She felt better after drain, but after about 1200ml milky fluid drained, she started having pleuritic pain on left side to her shoulder. Pain was better when drain clamped. She isn't more SOB. Exam Narrative Exam Narrative: GEN: Alert and oriented, a little more anxious appearing but in no acute distress HEENT: trachea midline LUNGS: Clear on right, diminished on left but increased from admission. No wheezes/rales CV: Regular but tachycardic with no murmurs, gallops, or rubs. EXT: no cyanosis, clubbing. 1+ anni pitting edema in ankles/feet, hands look puffy but no pitting Objective Last Vital Signs Temp 36.7 C 01/10/25 14:54 Pulse 111 H 01/10/25 14:54 Resp 20 01/10/25 14:54 BP 126/82 01/10/25 14:54 Pulse Ox 97 01/10/25 14:54 Laboratory Results - last 24 hr 01/09/25 01/09/25 01/09/25 14:05 15:09 17:13 WBC RBC Hgb Hct MCV MCH MCHC RDW Plt Count MPV Sodium Potassium Chloride Carbon Dioxide Anion Gap BUN Creatinine Est GFR (CKD-EPI 2020) Glucose Calcium Magnesium Iron TIBC Transferrin % Sat Troponin I 8 8 12 NT-Pro-B Natriuret Pep 570 H Procalcitonin Fluid Source Fluid Color Fluid Clarity Fluid WBC Fld Polynuclear WBCs % Fluid Mononuclear Cell 01/10/25 01/10/25 01/10/25 06:25 06:45 12:14 WBC 5.28 RBC 2.74 L Hgb 7.9 L Hct 25.9 L MCV 95 MCH 28.8 MCHC 30.5 L RDW 15.9 H Plt Count 163 MPV 9.3 Sodium 135 L Potassium 2.9 L* Chloride 97 L Carbon Dioxide 26.5 Anion Gap 11.5 H BUN 7 Creatinine 0.1 L Est GFR (CKD-EPI 2020) 175.79 Glucose 64 L Calcium 8.1 L Magnesium 1.9 Iron 28 L TIBC 158 L Transferrin % Sat 18 Troponin I NT-Pro-B Natriuret Pep Procalcitonin < 0.10 Fluid Source Pleural Fluid Color Yellow Fluid Clarity Purulent Fluid WBC [id number] Fld Polynuclear WBCs % 75 Fluid Mononuclear Cell 25 Time Spent with Patient Time Spent with Patient: 35-49 minutes Time was spent: preparing to see the patient(eg.review tests), obtaining and/or reviewing separately otained hiistory, ordering medications,tests, procedures, referring, communicating with other health patient care technician, indepentently interpreting results, counseling the patient and care coordination
[2025-01-10] MEDS: Enoxaparin 40 MG/0.4 ML SYR SC (16:23)
[2025-01-10] MEDS: cefTRIAXone 2 GM/50 ML BAG IVPB (18:12)
[2025-01-10] MEDS: Prenatal Multivitamin w/CA,FE TAB 1 TAB PO (20:11)
[2025-01-10] MEDS: Folic Acid 1 MG TAB PO (20:12)
[2025-01-10] MEDS: Loratidine 10 MG TAB PO (20:12)
[2025-01-10] MEDS: Budesonide/Formoterol 160/4.5 6 GM 60 PUFF INH IH (20:37)
[2025-01-10 21:46] LABS: Glucose, Fluid <20 mg/dL (See Note)
[2025-01-11] VITALS (11 sets, daily range): BP systolic 102–142; BP diastolic 70–90; PULSE 107–117; RESP 15–22; TEMP 36.3–37; O2SAT 92–100
--- NOTE | 2025-01-11 07:00 | DI.RAD_ITS ---
Exam(s) XR PORTABLE CHEST AP EXAM: XR PORTABLE CHEST AP CLINICAL HISTORY: pneumonia. TECHNIQUE: 2D digital imaging was performed. COMPARISON: Prior chest x-rays, most recent being 01/10/2025 FINDINGS: Single AP portable view. Again noted is a pigtail drainage catheter in the lower left pleural space. The size the large left pleural effusion has slightly further decreased when compared to yesterday. Heart size unchanged mediastinum is not widened. There is no shift of midline structures at this time. The right lung remains clear. Nino rods again noted in the spine. IMPRESSION: There is some further decrease in the size of the left pleural effusion which is being serviced by a pigtail drainage catheter in the lower left pleural space. However, there is still a substantial amount of pleural fluid in left hemithorax. DATA REPOSITORY: RADIATION DOSE DELIVERED:
[2025-01-11 07:12] LABS: MCH 29.9 pg (27.0-33.0); MCHC 31.3 % (32.0-36.0); MCV 95 fL (80-95); MPV 9.0 fL (8.0-11.0); Platelet Count 156 10^3/uL (130-400); RBC 2.11 10^6/uL (3.93-5.22); RDW 15.9 % (11.7-14.6); RDW-SD 54.2 fL; WBC 5.82 10^3/uL (4.4-10.8)
[2025-01-11 07:27] LABS: ALT 39 U/L (14-59); AST 18 U/L (15-37); Albumin 1.5 g/dL (3.4-5.0); Alkaline Phosphatase 88 U/L (46-116); Anion Gap 6.9 mmol/L (3-11); BUN 5 mg/dL (7-18); Bilirubin, Total 0.9 mg/dL (0.2-1.0); CO2 27.1 mmol/L (21.0-32.0); Calcium 8.3 mg/dL (8.5-10.1); Chloride 102 mmol/L (98-107); Glucose 77 mg/dL (74-106); Potassium 4.8 mmol/L (3.5-5.1); Sodium 136 mmol/L (136-145); Total Protein 5.5 g/dL (6.4-8.2)
[2025-01-11 07:30] LABS: Estimated GFR 175.79 (mL/min/1.73m2); HCT 20.1 % (36.0-46.0); HGB 6.3 g/dL (11.2-15.7)
[2025-01-11] MEDS: Doxycycline Hyclate 100 MG CAP PO ×2 (07:45→20:11)
[2025-01-11] MEDS: Venlafaxine 37.5 MG CAPCR PO (07:45)
[2025-01-11] MEDS: Potassium Chloride 20 MEQ TABCR 40 MEQ PO (07:46)
[2025-01-11] MEDS: Normal Saline Flush 10 ML SYR IVP ×4 (07:47→20:12)
[2025-01-11] MEDS: Budesonide/Formoterol 160/4.5 6 GM 60 PUFF INH IH ×2 (08:28→22:55)
--- NOTE | 2025-01-11 08:36 | W.PULMPROG ---
Assessment and Plan Assessment and plan (1) Empyema: Status: Acute (2) Dyspnea: Status: Acute (3) Paroxysmal nocturnal hemoglobinuria: Status: Acute (4) Hemolytic anemia: Status: Acute General Date Of Service Date of service: 01/11/25 Time of Service: 07:45 Reason for Consult: Pleural effusion Recommendations: Assessment: 1. Left empyema / pleural effusion - complete pleural fluid analysis pending. Pleural fluid appeared purulent. WBC very high in pleural fluid with neutrophil predominance. Culture pending 2. Dyspnea - due to left pneumonia, left empyema, and left atelectasis - improved 3. PNH 4. Spinal muscular atrophy 5. Anemia Recommendations: - continue ceftriaxone and doxycline for CAP coverage. I'm going to add unasyn to add anaerobic coverage given empyema - repeat CXR in the AM. I suspect she will need intrapleural TPA/DNAase to better evacuate the empyema. Her tube was accidentally clamped overnight, so will monitor today and repeat CXR in the AM. If still has a significant effusion on CXR, plan to initiate intrapleural TPA/DNAase as per hospital protocol. I have spoken with cheng and Dr. Brewer regarding it's administration. I will not be in house over the weekend, but am available by phone. This procedure is certainly indicated in her case, so as to help avoid the need for thoracic surgery. Has not had any bloody fluid from her chest tube. - agree with PRBC transfusion given her anemia - followup on pleural fluid cultures and infectious workup. If cultures are negative or sensitivities are agreeable, streamlining antibiotics to unasyn, then eventually augmentin would be favorable Subjective Note Note: 44 year old with past medical history of asthma, Type 2 spinal muscular atrophy, chronic weakness of the upper and lower extremities, paroxysmal nocturnal hemoglobinuria - managed by [facility] on [facility]. She presented to the ED with SOB and left sided chest pain. Prior to presentation to the ED she had been ill 3 weeks prior requiring steroids and abx. She was experiencing coughing, nausea and vomiting. After starting prednisone, she developed bilateral upper and lower extremity swelling as well as abdominal. This was waxing and waning. She notes one episode of choking on food, but felt she cleared this well. Imaging obtained in the ED reveals large left sided pleural effusion. 14 Fr pigtail chest tube placed on 01/10. > 2 L of chest tube output since. Pleural fluid analysis still pending, but appearance and history consistent with empyema. Overnight, her chest tube was accidentally clamped, so had minimal drainage. Unclamped this AM with ~200 mL removed. Her dyspnea and chest pain have significantly improved. ROS: 6 pt ROS negative except as above Exam Narrative Exam Narrative: General: alert, no acute distress Head: normocephalic ENT: no stridor, trachea midline CV: mild tachycardia, regular rhythm Respiratory: no wheezing, no crackles, no rhonchi, no prolonged expiration GI: abd soft, non-tender, non-distended Skin: no rashes Extremities: trace edema, no digital clubbing Psych: normal affect Objective Last Vital Signs Temp 36.4 C L 01/11/25 07:22 Pulse 107 H 01/11/25 07:22 Resp 17 01/11/25 07:22 BP 105/76 01/11/25 07:22 Pulse Ox 99 01/11/25 07:22 Laboratory Results - last 24 hr 01/10/25 01/10/25 01/11/25 06:45 12:14 05:57 WBC 5.82 RBC 2.11 L Hgb 6.3 L* Hct 20.1 L* MCV 95 MCH 29.9 MCHC 31.3 L RDW 15.9 H Plt Count 156 MPV 9.0 Sodium 136 Potassium 4.8 D Chloride 102 Carbon Dioxide 27.1 Anion Gap 6.9 BUN 5 L Creatinine 0.1 L Est GFR (CKD-EPI 2020) 175.79 Glucose 77 Calcium 8.3 L Total Bilirubin 0.9 AST 18 ALT 39 Alkaline Phosphatase 88 Total Protein 5.5 L Albumin 1.5 L Procalcitonin < 0.10 Fluid Source Pleural Fluid Color Yellow Fluid Clarity Purulent Fluid WBC [id number] Fld Polynuclear WBCs % 75 Fluid Mononuclear Cell 25 Crossmatch 01/11/25 08:32 WBC RBC Hgb Hct MCV MCH MCHC RDW Plt Count MPV Sodium Potassium Chloride Carbon Dioxide Anion Gap BUN Creatinine Est GFR (CKD-EPI 2020) Glucose Calcium Total Bilirubin AST ALT Alkaline Phosphatase Total Protein Albumin Procalcitonin Fluid Source Fluid Color Fluid Clarity Fluid WBC Fld Polynuclear WBCs % Fluid Mononuclear Cell Crossmatch See Detail Reviewed Pertinent PMH: Yes Results Medications Medications: Active Medications Generic Name Dose Route Start Last Admin Trade Name Freq PRN Reason Stop Dose Admin Acetaminophen 650 mg 01/09/25 16:41 Acetaminophen 325 Mg Tab PO Q4H PRN PRN Albuterol Sulfate 2.5 mg 01/09/25 16:41 Albuterol 2.5 Mg/3 Ml Inh Soln Vial UPD Q2H PRN PRN Albuterol Sulfate 2 puff 01/09/25 16:48 Albuterol Hfa 8 Gm 60 Puff Inh IH Q4H PRN PRN shortness of breath or wheezing Budesonide/Formoterol Fumarate 1 puff 01/09/25 20:00 01/11/25 08:28 Budesonide/Formoterol 160/4.5 6 Gm 60 Puff Inh IH 1 puff BID REBEKAH Administration Doxycycline Hyclate 100 mg 01/09/25 20:00 01/11/25 07:45 Doxycycline Hyclate 100 Mg Cap PO 100 mg BID REBEKAH Administration Enoxaparin Sodium 40 mg 01/10/25 16:00 01/10/25 16:23 Enoxaparin 40 Mg/0.4 Ml Syr SC 40 mg Q24H REBEKAH Administration Ferrous Gluconate 324 mg 01/11/25 08:30 Ferrous Gluconate 324 Mg Tab PO DAILY REBEKAH Folic Acid 1 mg 01/10/25 20:00 01/10/25 20:12 Folic Acid 1 Mg Tab PO 1 mg HS REBEKAH Administration Ceftriaxone Sodium/Dextrose 2 gm in 50 mls @ 100 mls/hr 01/09/25 18:00 01/10/25 18:12 Rocephin IVPB 100 mls/hr Q24H REBEKAH Administration IV Miscellaneous Supplies 1 each 01/10/25 15:00 Iv Access IV DIRECTED REBEKAH Ibuprofen 400 mg 01/09/25 16:48 01/10/25 20:11 Ibuprofen 200 Mg Tab PO 400 mg QID PRN PRN Administration fever or pain Lidocaine HCl 20 ml 01/10/25 09:00 Lidocaine 1% Multi-Dose 20 Ml Vial IJ DIRECTED REBEKAH Loratadine 10 mg 01/10/25 20:00 01/10/25 20:12 Loratidine 10 Mg Tab PO 10 mg HS REBEKAH Administration Ondansetron HCl 4 mg 01/09/25 17:37 Ondansetron O.D.T. 4 Mg Tabef PO Q8H PRN PRN Oxycodone HCl 5 mg 01/10/25 14:59 Oxycodone 5 Mg Tab PO Q4H PRN PRN Pt's Own Coq10 ( 1 each 01/11/25 08:30 Ubiquinol) [Qunol PO Román Coq10] 100 Mg DAILY REBEKAH Capsule Pt's Own Iptacopan [ 1 each 01/10/25 20:00 01/10/25 20:13 Fabhalta] 200 Mg PO Not Given Capsule BID REBEKAH Polyethylene Glycol 17 gm 01/09/25 16:35 Polyethylene Glycol 3350 17 Gm Packet PO DAILY PRN PRN Constipation Multivitamins 1 tab 01/10/25 20:00 01/10/25 20:11 Multivitamin W/Ca,Fe Tab PO 1 tab HS REBEKAH Administration Sodium Chloride 0 ml 01/09/25 23:29 01/10/25 18:13 Normal Saline Flush 10 Ml Syr IVP 10 ml PRN PRN Administration Sodium Chloride 0 ml 01/10/25 08:30 01/11/25 07:47 Normal Saline Flush 10 Ml Syr IVP 10 ml BID REBEKAH Administration Venlafaxine HCl 37.5 mg 01/10/25 08:30 01/11/25 07:45 Venlafaxine 37.5 Mg Capcr PO 37.5 mg QAM REBEKAH Administration Allergies ciprofloxacin (From Cipro) Allergy (Intermediate, Verified 01/09/25 13:28) Topical Irritation codeine Allergy (Intermediate, Verified 01/09/25 13:28) vomit Labs 01/11/25 05:57 01/11/25 05:57 Labs: 01/10/25 20:53 Sputum Sputum Culture - Pending 01/10/25 20:53 Sputum Gram Stain - Pending 01/10/25 12:14 Pleural - Left Body Fluid Culture - Pending 01/10/25 12:14 Pleural - Left Gram Stain - Final 01/10/25 12:14 Pleural - Left Anaerobic Culture - Pending Laboratory Tests Range/Units 01/09/25 01/09/25 01/09/25 14:05 15:09 17:13 WBC (4.4-10.8) 10^3/uL RBC (3.93-5.22) 10^6/uL Hgb (11.2-15.7) g/dL Hct (36.0-46.0) % MCV (80-95) fL MCH (27.0-33.0) pg MCHC (32.0-36.0) % RDW (11.7-14.6) % Plt Count (130-400) 10^3/uL MPV (8.0-11.0) fL PT (9.1-11.1) sec 10.8 INR (0.9-1.1) 1.1 APTT (20.6-30.2) sec 21.3 Sodium (136-145) mmol/L Potassium (3.5-5.1) mmol/L Chloride (98-107) mmol/L Carbon Dioxide (21.0-32.0) mmol/L Anion Gap (3-11) mmol/L BUN (7-18) mg/dL Creatinine (0.55-1.02) mg/dL Est GFR (CKD-EPI 2020) (mL/min/1.73m2) Glucose (74-106) mg/dL Calcium (8.5-10.1) mg/dL Magnesium (1.8-2.4) mg/dL Iron (50-170) ug/dL TIBC (250-450) ug/dL Transferrin % Sat (15-50) % Total Bilirubin (0.2-1.0) mg/dL AST (15-37) U/L ALT (14-59) U/L Alkaline Phosphatase (46-116) U/L Troponin I (<or=51) ng/L 8 8 12 NT-Pro-B Natriuret Pep (<300) pg/mL 570 H Total Protein (6.4-8.2) g/dL Albumin (3.4-5.0) g/dL Procalcitonin ng/mL Fluid Source Fluid Color Fluid Clarity Fluid WBC (0) uL Fld Polynuclear WBCs % % Fluid Mononuclear Cell % Crossmatch Range/Units 01/10/25 01/10/25 01/10/25 06:25 06:45 12:14 WBC (4.4-10.8) 10^3/uL 5.28 RBC (3.93-5.22) 10^6/uL 2.74 L Hgb (11.2-15.7) g/dL 7.9 L Hct (36.0-46.0) % 25.9 L MCV (80-95) fL 95 MCH (27.0-33.0) pg 28.8 MCHC (32.0-36.0) % 30.5 L RDW (11.7-14.6) % 15.9 H Plt Count (130-400) 10^3/uL 163 MPV (8.0-11.0) fL 9.3 PT (9.1-11.1) sec INR (0.9-1.1) APTT (20.6-30.2) sec Sodium (136-145) mmol/L 135 L Potassium (3.5-5.1) mmol/L 2.9 L* Chloride (98-107) mmol/L 97 L Carbon Dioxide (21.0-32.0) mmol/L 26.5 Anion Gap (3-11) mmol/L 11.5 H BUN (7-18) mg/dL 7 Creatinine (0.55-1.02) mg/dL 0.1 L Est GFR (CKD-EPI 2020) (mL/min/1.73m2) 175.79 Glucose (74-106) mg/dL 64 L Calcium (8.5-10.1) mg/dL 8.1 L Magnesium (1.8-2.4) mg/dL 1.9 Iron (50-170) ug/dL 28 L TIBC (250-450) ug/dL 158 L Transferrin % Sat (15-50) % 18 Total Bilirubin (0.2-1.0) mg/dL AST (15-37) U/L ALT (14-59) U/L Alkaline Phosphatase (46-116) U/L Troponin I (<or=51) ng/L NT-Pro-B Natriuret Pep (<300) pg/mL Total Protein (6.4-8.2) g/dL Albumin (3.4-5.0) g/dL Procalcitonin ng/mL < 0.10 Fluid Source Pleural Fluid Color Yellow Fluid Clarity Purulent Fluid WBC (0) uL [id number] Fld Polynuclear WBCs % % 75 Fluid Mononuclear Cell % 25 Crossmatch Range/Units 01/11/25 01/11/25 05:57 08:32 WBC (4.4-10.8) 10^3/uL 5.82 RBC (3.93-5.22) 10^6/uL 2.11 L Hgb (11.2-15.7) g/dL 6.3 L* Hct (36.0-46.0) % 20.1 L* MCV (80-95) fL 95 MCH (27.0-33.0) pg 29.9 MCHC (32.0-36.0) % 31.3 L RDW (11.7-14.6) % 15.9 H Plt Count (130-400) 10^3/uL 156 MPV (8.0-11.0) fL 9.0 PT (9.1-11.1) sec INR (0.9-1.1) APTT (20.6-30.2) sec Sodium (136-145) mmol/L 136 Potassium (3.5-5.1) mmol/L 4.8 D Chloride (98-107) mmol/L 102 Carbon Dioxide (21.0-32.0) mmol/L 27.1 Anion Gap (3-11) mmol/L 6.9 BUN (7-18) mg/dL 5 L Creatinine (0.55-1.02) mg/dL 0.1 L Est GFR (CKD-EPI 2020) (mL/min/1.73m2) 175.79 Glucose (74-106) mg/dL 77 Calcium (8.5-10.1) mg/dL 8.3 L Magnesium (1.8-2.4) mg/dL Iron (50-170) ug/dL TIBC (250-450) ug/dL Transferrin % Sat (15-50) % Total Bilirubin (0.2-1.0) mg/dL 0.9 AST (15-37) U/L 18 ALT (14-59) U/L 39 Alkaline Phosphatase (46-116) U/L 88 Troponin I (<or=51) ng/L NT-Pro-B Natriuret Pep (<300) pg/mL Total Protein (6.4-8.2) g/dL 5.5 L Albumin (3.4-5.0) g/dL 1.5 L Procalcitonin ng/mL Fluid Source Fluid Color Fluid Clarity Fluid WBC (0) uL Fld Polynuclear WBCs % % Fluid Mononuclear Cell % Crossmatch See Detail Imaging Chest x-ray: report reviewed and image reviewed
--- NOTE | 2025-01-11 09:42 | DI.VRAD_ITS ---
PROCEDURE INFORMATION: Exam: XR Chest Exam date and time: 01/11/2025 7:13 AM Age: 44 years old Clinical indication: Other: Pneumonia TECHNIQUE: Imaging protocol: Radiologic exam of the chest. Views: 1 view. COMPARISON: CR XR PORTABLE CHEST AP 01/10/2025 1:14 PM FINDINGS: Tubes, catheters and devices: Interval decreased size of now moderate left pleural effusion with chest tube in place. Lungs: Consolidation/atelectasis in the left lower lung. The right lung is clear. Pleural spaces: No sizable pleural effusion or pneumothorax. Heart/Mediastinum: No cardiomegaly. Bones/joints: Extensive postsurgical changes of the thoracolumbar spine. IMPRESSION: Interval decreased size of now moderate left pleural effusion with chest tube in place. Dictated and Authenticated by: Hiral Peterson MD. Orderin Amy Niño MD
--- NOTE | 2025-01-11 09:51 | CMPROGNOTE_ITS ---
Date of service: 01/11/25 Time of Service: 09:51 Care Management Progress Note Progress Note Text Progress Note Text: Thao was sitting up in bed and visiting with Jerman when CM met with her. Thao reports that she is feeling well today. Staff assisted her with using a new sling for the [place] lift; however, she noted that it did not function as she had hoped. Per report, Pulmonology is scheduled to see Thao today, and she is expected to receive a PRBC transfusion. She will also continue on her current course of antibiotics. Thao expressed that if her drainage tube is removed, she does not believe home health services would be necessary or beneficial. CM will follow. Discharge Potential Discharge Needs: PCP F/U Appt Anticipated Barriers to Discharge: None Identified Patient/Family Education Needs: Review discharge instructions, discuss Ask Me Three Plan: Anticipate Thao will be discharged home once medically ready. It is recommended she follow up with her community providers, pulmonology, and discharge plan of care. She will transport via private vehicle by her family. CM will follow. Social Determinants of Health Screening Social Determinants of health last assessed in clinic: 01/10/25 Will the Patient Participate in the Screening?: Unable to obtain Do you worry about having a steady place to live?: choose not to answer Problems where you live: no known problems In the past 12 months, have you had to go without electric, gas, oil or water in your home?: choose not to answer Has lack of transportation kept you from medical appointments or from doing things needed for daily living?: choose not to answer Has anyone in your life made you feel unsafe or unsupported?: choose not to answer How hard is it for you to pay for the very basics like food, housing, medical care, and heating? Would you say it is:: Not hard at all Do you want help finding or keeping work or a job?: I do not need or want help If for any reason you need help with day-to-day activities such as bathing, preparing meals, shopping, managing finances, etc., do you get the help you need?: I don?t need any help How often do you feel lonely or isolated from those around you?: Never Do you speak a language other than Indonesian at home?: No Does the patient want assistance with any of the above?: No Health Related Social Needs Health related social needs: material hardship(utilities) (Z59.12)
[2025-01-11] MEDS: Ibuprofen 200 MG TAB 400 MG PO ×2 (10:17→20:27)
[2025-01-11] MEDS: AMPICILLIN/SULBACTAM 3 GM in Normal Saline 100 ML IVPB ×3 (10:18→22:03)
[2025-01-11] MEDS: Ferrous Gluconate 324 MG TAB PO (10:18)
--- NOTE | 2025-01-11 13:26 | PHA.REVIEW2 ---
Pharmacy Admission Review Admission Clinical Review Admission Pharmacy Review: Empyema (Acute) Dyspnea (Acute) Paroxysmal nocturnal hemoglobinuria (Acute) Discharge planning issues (Acute) DVT prophylaxis (Acute) Pleural effusion on left (Acute) Hemolytic anemia (Acute) ciprofloxacin (From Cipro) Allergy (Intermediate, Verified 01/09/25 13:28) Topical Irritation codeine Allergy (Intermediate, Verified 01/09/25 13:28) vomit Resuscitation Status Full Code Height 4 ft 10 in Weight 85.7 kg Comments Comments/Follow Ups: Possible TPA/DNAse administration tomorrow - watch for orders Pharmacy Admission Review Renal Dosing Renal Dosing: BUN 5 mg/dL (7-18) L 01/11/25 05:57 Creatinine 0.1 mg/dL (0.55-1.02) L 01/11/25 05:57 Medications needing adjustments: Reviewed (CrCl 638.6 mL/min ) List of meds needing interventions: Current medications are okay Anticoagulation Anticoagulation: Hgb 6.3 g/dL (11.2-15.7) L* 01/11/25 05:57 Hct 20.1 % (36.0-46.0) L* 01/11/25 05:57 Plt Count 156 10^3/uL (130-400) 01/11/25 05:57 INR 1.1 (0.9-1.1) 01/09/25 14:05 Creatinine 0.1 mg/dL (0.55-1.02) L 01/11/25 05:57 DVT Prophylaxis: Reviewed (receiving blood transfusion today) Medications: Enoxaparin (40mg daily) Opiate Usage Evaluate Pain Scale/Pains Meds: Reviewed (oxycodone 5mg q4h PRN - no doses given) Scheduled Bowel Reg ordered if on Opiates?: No (PRN Miralax) Relevant Labs Relevant Labs: Sodium 136 mmol/L (136-145) 01/11/25 05:57 Potassium 4.8 mmol/L (3.5-5.1) D 01/11/25 05:57 Chloride 102 mmol/L (98-107) 01/11/25 05:57 Magnesium 1.9 mg/dL (1.8-2.4) 01/10/25 06:25 Electrolytes, C-Reactive P, ESR: Reviewed Cardiac Review Cardiac Review: Troponin I 12 ng/L (<or=51) 01/09/25 17:13 NT-Pro-B Natriuret Pep 570 pg/mL (<300) H 01/09/25 14:05 BP, HR, EF%: Reviewed (BP WNL, HR 117) QTc Review QTc: Reviewed (492 from 01/08/25) IV to PO Switch IV Medications: Reviewed (ceftriaxone) Home Meds Home Med List reviewed: Intervened Relevent Home Meds Not ordered & why?: Changed 2 orders to patients own (non-formulary). Spoke to nurse about these being brought in. Per nurse patient does not need the CoQ10 while admitted (discontinued order). The iptacopan was brought in by but he refuses to give to nurse or pharmacy for verification (says it's too expensive and he doesn't want to loose it). Nurse stated has been giving it to patient while she is here. Spoke to provider who stated that he is aware this is not the hospitals policy/procedure but is okay with it Current Meds Current Medication Order Review: Intervened Comments: Added IV access order Pharmacy Antibiotic Review Relevant Labs: WBC 5.82 10^3/uL (4.4-10.8) 01/11/25 05:57 Procalcitonin < 0.10 ng/mL 01/10/25 06:45 Temperature 36.3 C Temperature 36.4 C Microbiology 01/10/25 12:14 Body Fluid Culture - Preliminary Pleural - Left Streptococcus species Gram Stain - Final Pharmacy Antibiotic Activity: C/S review and Reviewed, no change Comments: Patient is on ceftriaxone (day 2), oral doxycycline (day 2) and Unasyn (day 1) for possible pneumonia. Per progress note check writing machine operator added Unasyn to cover anaerobes due to empyema. Comments Comments/Follow Ups: Possible TPA/DNAse administration tomorrow - watch for orders
--- NOTE | 2025-01-11 14:23 | PGE_ITS ---
Date of Service Date of service: 01/11/25 Time of Service: 14:23 Assessment and Plan Assessment and plan (1) Empyema: Status: Acute Assessment and plan: Large symptomatic effusion, started in setting of respiratory infection 3 weeks ago and 2 weeks of steroids. Now draining fluid c/w empyema. Continue with ceftriaxone and doxycycline (had azithro as outpatient) with cultu res pending. Appreciate pulmonary guidance. Plan intrapleural lytics 01/12 per [facility] [address] trial [address] [facility], reviewed with Dr. Reyes. Continue to treat pain. Goal is to have this heal and avoid need to transfer for thoracotomy. (2) Hemolytic anemia: Status: Acute Assessment and plan: History of iron deficiency as well as hemolysis related to paroxysmal nocturnal hemoglobinuria. Her current anemia is below previous hemoglobin of 12.9 (September 2024) and some bilirubinemia c/w active hemolysis (bili 0.6 in September). This is typical for her during illnessess and could be contributing to her symptoms. 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 Iron levels close to normal, but today hgb below 7, related to stress of illness/procedure Transfuse 10/3 am, repeat 1 hour after transfusion and give another unit if <7 (3) Type II spinal muscular atrophy: Assessment and plan: She is wheelchair dependant, uses device for transfer, will requires additional assistance (4) Asthma: Assessment and plan: Not clearly active, continue symbicort (5) Anxiety: Assessment and plan: controlled at baseline, continue venlafaxine. Did well with prn 1mg oral lorazepam for her procedure. (6) DVT prophylaxis: Status: Acute Assessment and plan: Now s/p thoracentesis/drain, she has risk factors of decreased mobility and infection, will treat with enoxaparin, monitor plts (7) Discharge planning issues: Status: Acute Assessment and plan: Pending ability to heal empyema on antibiotics, likely several days. Subjective Subjective Patient reports: tolerating a regular diet and voiding w/o difficulty; denies diarrhea, vomiting or fever Interval history since last seen: Events: Pleural catheter placed 01/10, inadvertently stopcock closed overnight, opened this morning She has pain in the area of the drain, but feeling a little better. Still a little short of breath, she can tell her heart is fast. she is tired. Exam Narrative Exam Narrative: GEN: Alert and oriented, less anxious today no acute distress HEENT: trachea midline LUNGS: Clear on right, diminished on left but increased from admission. No wheezes/rales. Catheter draining cloudy yellow/brown fluid. CV: Regular but tachycardic with no murmurs, gallops, or rubs. EXT: no cyanosis, clubbing. trace anni pitting edema in ankles/feet, hands look puffy but no pitting Objective Last Vital Signs Temp 36.3 C L 01/11/25 11:20 Pulse 117 H 01/11/25 11:20 Resp 17 01/11/25 11:20 BP 102/76 01/11/25 11:20 Pulse Ox 98 01/11/25 11:20 Laboratory Results - last 24 hr 01/10/25 01/11/25 01/11/25 12:14 05:57 09:47 WBC 5.82 RBC 2.11 L Hgb 6.3 L* Hct 20.1 L* MCV 95 MCH 29.9 MCHC 31.3 L RDW 15.9 H Plt Count 156 MPV 9.0 Sodium 136 Potassium 4.8 D Chloride 102 Carbon Dioxide 27.1 Anion Gap 6.9 BUN 5 L Creatinine 0.1 L Est GFR (CKD-EPI 2020) 175.79 Glucose 77 Calcium 8.3 L Total Bilirubin 0.9 AST 18 ALT 39 Alkaline Phosphatase 88 Total Protein 5.5 L Albumin 1.5 L Fluid Glucose <20 ABO/Rh A Positive Antibody Screen NEGATIVE Crossmatch See Detail Time Spent with Patient Time Spent with Patient: 35-49 minutes Time was spent: preparing to see the patient(eg.review tests), obtaining and/or reviewing separately otained hiistory, ordering medications,tests, procedures, referring, communicating with other health rn progressive care, indepentently interpreting results, counseling the patient and care coordination
[2025-01-11] MEDS: Albuterol 2.5 MG/3 ML INH SOLN VIAL UPD (18:23)
[2025-01-11] MEDS: cefTRIAXone 2 GM/50 ML BAG IVPB (20:10)
[2025-01-11] MEDS: Prenatal Multivitamin w/CA,FE TAB 1 TAB PO (20:11)
[2025-01-11] MEDS: Loratidine 10 MG TAB PO (20:11)
[2025-01-11] MEDS: Folic Acid 1 MG TAB PO (20:11)
[2025-01-11 22:23] LABS: HCT 27.2 % (36.0-46.0); HGB 8.7 g/dL (11.2-15.7)
[2025-01-12] VITALS (10 sets, daily range): BP systolic 107–123; BP diastolic 69–81; PULSE 104–120; RESP 16–17; TEMP 36.4–37.1; O2SAT 94–100
[2025-01-12] MEDS: AMPICILLIN/SULBACTAM 3 GM in Normal Saline 100 ML IVPB ×4 (04:07→20:34)
[2025-01-12] MEDS: Normal Saline Flush 10 ML SYR IVP ×3 (04:07→20:35)
--- NOTE | 2025-01-12 06:16 | DI.RAD_ITS ---
Exam(s) XR PORTABLE CHEST AP EXAM: XR PORTABLE CHEST AP CLINICAL HISTORY: pneumonia. TECHNIQUE: 2D digital imaging was performed. COMPARISON: CR,XR XR PORTABLE CHEST AP from 01/11/2025 FINDINGS: Single AP portable view. Again noted is a pigtail drainage catheter in the lower left pleural space which is unchanged in position from yesterday. Heart size unchanged in the mediastinum is not widened nor shifted. The size of the left pleural effusion is unchanged from yesterday. No pneumothorax. Some infiltrate in the expanded part of the left lung-left parahilar region is noted. Right lung remains clear and there is no obvious pleural effusion on the right side. IMPRESSION: Unchanged size of the left pleural effusion when compared to yesterday. Assuming that the pigtail drainage catheter is patent (nonoccluded) one might try positioning the patient with the [id number] for a few hours, this so as to bring the fluid to the catheter. This will help drainage, assuming that the recently placed drainage catheter is not occluded or kinked. DATA REPOSITORY: RADIATION DOSE DELIVERED:
[2025-01-12 06:56] LABS: HCT 26.1 % (36.0-46.0); HGB 8.5 g/dL (11.2-15.7); MCH 30.0 pg (27.0-33.0); MCHC 32.6 % (32.0-36.0); MCV 92 fL (80-95); MPV 8.7 fL (8.0-11.0); Platelet Count 124 10^3/uL (130-400); RBC 2.83 10^6/uL (3.93-5.22); RDW 15.8 % (11.7-14.6); RDW-SD 53.1 fL; WBC 5.28 10^3/uL (4.4-10.8)
[2025-01-12 07:11] LABS: ALT 30 U/L (14-59); AST 12 U/L (15-37); Albumin 1.4 g/dL (3.4-5.0); Alkaline Phosphatase 79 U/L (46-116); Anion Gap 7.9 mmol/L (3-11); BUN 5 mg/dL (7-18); Bilirubin, Total 0.9 mg/dL (0.2-1.0); CO2 27.1 mmol/L (21.0-32.0); Calcium 7.7 mg/dL (8.5-10.1); Chloride 103 mmol/L (98-107); Estimated GFR 175.79 (mL/min/1.73m2); Glucose 77 mg/dL (74-106); Magnesium 1.6 mg/dL (1.8-2.4); Potassium 3.8 mmol/L (3.5-5.1); Sodium 138 mmol/L (136-145); Total Protein 5.4 g/dL (6.4-8.2)
[2025-01-12] MEDS: Budesonide/Formoterol 160/4.5 6 GM 60 PUFF INH IH ×2 (08:54→19:50)
[2025-01-12] MEDS: Albuterol 2.5 MG/3 ML INH SOLN VIAL UPD (08:56)
[2025-01-12] MEDS: Venlafaxine 37.5 MG CAPCR PO (08:58)
[2025-01-12] MEDS: Ferrous Gluconate 324 MG TAB PO (08:58)
[2025-01-12] MEDS: Doxycycline Hyclate 100 MG CAP PO ×2 (08:58→20:34)
[2025-01-12] MEDS: oxyCODONE 5 MG TAB PO (09:30)
[2025-01-12] MEDS: Ondansetron O.D.T. 4 MG TABEF PO (09:30)
[2025-01-12 10:12] LABS: Protein,Total, BF 3.9 g/dL
--- NOTE | 2025-01-12 10:52 | DI.VRAD_ITS ---
PROCEDURE INFORMATION: Exam: XR Chest Exam date and time: 01/12/2025 6:08 AM Age: 44 years old Clinical indication: Other: Pneumonia; Prior surgery; Surgery date: 6+ months; Surgery type: Spine rods TECHNIQUE: Imaging protocol: Radiologic exam of the chest. Views: 1 view. COMPARISON: CR XR PORTABLE CHEST AP 01/11/2025 7:13 AM FINDINGS: Tubes, catheters and devices: Small bore left-sided chest tube unchanged in position Lungs: Left lung consolidations unchanged Pleural spaces: Moderate size loculated left pleural effusion unchanged Heart/Mediastinum: Stable cardiomegaly. Bones/joints: Thoracolumbar vilma fixation IMPRESSION: No significant interval change Dictated and Authenticated by: Gisel Jacobsen MD. Orderin Amy Niño MD
--- NOTE | 2025-01-12 10:53 | W.PM.PROGNOT ---
Date of Service Date of service: 01/12/25 Time of Service: 10:53 Assessment and Plan Assessment and plan (1) Empyema: Status: Acute Assessment and plan: -Large symptomatic effusion, started in setting of respiratory infection 3 weeks ago and 2 weeks of steroids. -Now draining fluid c/w empyema. -Continue with ceftriaxone and doxycycline (had azithro as outpatient) with cultures pending. -Appreciate pulmonary guidance, plan was for intrapleural lytics to start on 01/12 but needs to be ordered, earliest available would be 01/13 (2) Hemolytic anemia: Status: Acute Assessment and plan: -History of iron deficiency and hemolysis due to paroxysmal nocturnal hemoglobinuria. -Current Hb 7.9 on admission, was 12.9 in September. This is normal during illness and is likely contributing to symptoms -continue home Iptacopan -Hb 6.3 AM 01/11, recieved 1U PRBCs, Hb up to 8.5 as of AM 01/12 -f/u AM Hb and transfuse if <7 (3) Type II spinal muscular atrophy: Assessment and plan: -She is wheelchair dependant, uses device for transfer, will requires additional assistance (4) Asthma: Assessment and plan: -without acute exacerbation -continue home symbicort (5) Anxiety: Assessment and plan: -controlled at baseline, continue venlafaxine (6) DVT prophylaxis: Status: Acute Assessment and plan: -Now s/p thoracentesis/drain, she has risk factors of decreased mobility and infection -will treat with enoxaparin, monitor plts Subjective Subjective Interval history since last seen: Patient states that she is doing well today. She understands that we are waiting on delivery of lytics for her empyema. She has no complaints or concerns at this time. Exam Narrative Exam Narrative: Well-appearing female laying in bed in no acute distress, ANO x 4, heart regular rhythm, lungs with diminished breath sounds throughout left lung failure particularly in lower half, abdomen soft, nontender, nondistended, chest tube and placed in the left without surrounding erythema or drainage Objective Last Vital Signs Temp 97.7 F 01/12/25 07:35 Pulse 104 H 01/12/25 07:35 Resp 17 01/12/25 07:35 BP 123/81 01/12/25 07:35 Pulse Ox 96 01/12/25 07:35 Laboratory Results - last 24 hr 01/11/25 01/11/25 01/11/25 05:57 09:47 22:15 WBC RBC Hgb 8.7 L D Hct 27.2 L MCV MCH MCHC RDW Plt Count MPV Sodium Potassium Chloride Carbon Dioxide Anion Gap BUN Creatinine Est GFR (CKD-EPI 2020) Glucose Calcium Magnesium Total Bilirubin AST ALT Alkaline Phosphatase Total Protein Albumin ABO/Rh A Positive Blood Type Recheck A Positive Antibody Screen NEGATIVE Crossmatch See Detail 01/12/25 06:30 WBC 5.28 RBC 2.83 L Hgb 8.5 L Hct 26.1 L MCV 92 MCH 30.0 MCHC 32.6 RDW 15.8 H Plt Count 124 L MPV 8.7 Sodium 138 Potassium 3.8 D Chloride 103 Carbon Dioxide 27.1 Anion Gap 7.9 BUN 5 L Creatinine 0.1 L Est GFR (CKD-EPI 2020) 175.79 Glucose 77 Calcium 7.7 L Magnesium 1.6 L Total Bilirubin 0.9 AST 12 L ALT 30 Alkaline Phosphatase 79 Total Protein 5.4 L Albumin 1.4 L ABO/Rh Blood Type Recheck Antibody Screen Crossmatch Time Spent with Patient Time Spent with Patient: >50 minutes Time was spent: preparing to see the patient(eg.review tests), obtaining and/or reviewing separately otained hiistory, ordering medications,tests, procedures, referring, communicating with other health clinical care manager, indepentently interpreting results, counseling the patient and care coordination
[2025-01-12] MEDS: Ibuprofen 200 MG TAB 400 MG PO ×2 (13:50→20:47)
[2025-01-12 14:51] LABS: Lactate Dehydrogenase (LD), BF >9000 U/L
[2025-01-12] MEDS: cefTRIAXone 2 GM/50 ML BAG IVPB (17:59)
[2025-01-12] MEDS: Folic Acid 1 MG TAB PO (20:34)
[2025-01-12] MEDS: Prenatal Multivitamin w/CA,FE TAB 1 TAB PO (20:34)
[2025-01-12] MEDS: Loratidine 10 MG TAB PO (20:34)
[2025-01-13 00:54] VITALS: O2SAT 97
[2025-01-13] MEDS: AMPICILLIN/SULBACTAM 3 GM in Normal Saline 100 ML IVPB ×4 (03:58→22:10)
[2025-01-13] MEDS: Normal Saline Flush 10 ML SYR IVP ×3 (03:59→20:30)
--- NOTE | 2025-01-13 06:00 | DI.RAD_ITS ---
Exam(s) XR PORTABLE CHEST AP EXAM: XR PORTABLE CHEST AP CLINICAL HISTORY: pneumonia. TECHNIQUE: 2D digital imaging was performed. COMPARISON: CR,XR XR PORTABLE CHEST AP from 01/11/2025 CR,XR XR PORTABLE CHEST AP from 01/12/2025 FINDINGS: Single AP portable view. The left sided lower left pleural space pigtail drainage catheter appears unchanged position on this single view. The size of the infiltrate on the left side remains unchanged from yesterday and there is still some infiltrate in the left lung. I suspect given the lack of further progression of drainage that this left-sided pleural effusion is probably loculated, or that the drainage catheter is occluded or kinked, or that there is a combination all the above. The opposite-right lung remains clear. Heart size is upper normal. The mediastinum is not widened. No shift of midline structures IMPRESSION: No further improvement on the left side when compared to yesterday and 01/11/2025. The pigtail drainage catheter may be occluded and/or the drainage may be suboptimal as the pleural effusion may be loculated, given its appearance along the sidewall. DATA REPOSITORY: RADIATION DOSE DELIVERED:
[2025-01-13 06:57] LABS: HCT 26.1 % (36.0-46.0); HGB 8.1 g/dL (11.2-15.7); MCH 29.1 pg (27.0-33.0); MCHC 31.0 % (32.0-36.0); MCV 94 fL (80-95); MPV 9.3 fL (8.0-11.0); Platelet Count 105 10^3/uL (130-400); RBC 2.78 10^6/uL (3.93-5.22); RDW 15.4 % (11.7-14.6); RDW-SD 52.1 fL; WBC 5.03 10^3/uL (4.4-10.8)
[2025-01-13 07:05] VITALS: BP 116/78; PULSE 104; RESP 18; TEMP 36.5; O2SAT 97
[2025-01-13 07:21] LABS: ALT 32 U/L (14-59); AST 18 U/L (15-37); Albumin 1.4 g/dL (3.4-5.0); Alkaline Phosphatase 83 U/L (46-116); Anion Gap 8.0 mmol/L (3-11); BUN 6 mg/dL (7-18); Bilirubin, Total 0.6 mg/dL (0.2-1.0); CO2 28.0 mmol/L (21.0-32.0); Calcium 8.0 mg/dL (8.5-10.1); Chloride 103 mmol/L (98-107); Glucose 75 mg/dL (74-106); Potassium 3.5 mmol/L (3.5-5.1); Sodium 139 mmol/L (136-145); Total Protein 5.6 g/dL (6.4-8.2)
[2025-01-13 07:24] LABS: Estimated GFR 175.79 (mL/min/1.73m2)
[2025-01-13] MEDS: Magnesium Oxide 400 MG TAB PO (08:21)
[2025-01-13] MEDS: Doxycycline Hyclate 100 MG CAP PO ×2 (08:21→20:30)
[2025-01-13] MEDS: Ferrous Gluconate 324 MG TAB PO (08:21)
[2025-01-13] MEDS: Venlafaxine 37.5 MG CAPCR PO (08:21)
[2025-01-13] MEDS: Budesonide/Formoterol 160/4.5 6 GM 60 PUFF INH IH ×2 (08:49→19:46)
--- NOTE | 2025-01-13 10:26 | DI.VRAD_ITS ---
PROCEDURE INFORMATION: Exam: XR Chest Exam date and time: 01/13/2025 6:58 AM Age: 44 years old Clinical indication: Other: Pneumonia TECHNIQUE: Imaging protocol: Radiologic exam of the chest. Views: 1 view. COMPARISON: CR XR PORTABLE CHEST AP 01/12/2025 6:08 AM FINDINGS: Tubes, catheters and devices: Left sided percutaneous chest tube. Lungs: Left lower lung compressive atelectasis/consolidation. Pleural spaces: Loculated left pleural effusion. Heart/Mediastinum: Cardiomegaly. Bones/joints: Thoracolumbar rods. IMPRESSION: No change in the left lower lung compressive atelectasis/consolidation. Stable loculated left pleural effusion. Dictated and Authenticated by: Maximo Mendosa MD. Orderin Amy Niño MD
[2025-01-13 10:44] VITALS: BP 117/77; PULSE 113; RESP 16; TEMP 36.8; O2SAT 97
[2025-01-13] MEDS: fentaNYL 100 MCG/2 ML VIAL 25 MCG IVP ×2 (11:44→12:24)
[2025-01-13] MEDS: SODIUM CHLORIDE UD (12:24)
[2025-01-13] MEDS: ALTEPLASE UD (12:24)
[2025-01-13] MEDS: WATER FOR INJECTION UD (12:25)
[2025-01-13] MEDS: DORNASE ALFA UD (12:25)
[2025-01-13] MEDS: STERILE UD (12:25)
--- NOTE | 2025-01-13 12:49 | W.PM.PROGNOT ---
Date of Service Date of service: 01/13/25 Time of Service: 12:49 Assessment and Plan Assessment and plan (1) Empyema: Status: Acute Assessment and plan: -Large symptomatic effusion, started in setting of respiratory infection 3 weeks ago and 2 weeks of steroids. -Now draining fluid c/w empyema. -Continue with ceftriaxone and doxycycline (had azithro as outpatient) with cultures pending. -Appreciate pulmonary guidance; first dose of lytic therapy given around 12:20 PM on 01/13/2025, next dose to be given tomorrow morning 01/14/2025 (2) Hemolytic anemia: Status: Acute Assessment and plan: -History of iron deficiency and hemolysis due to paroxysmal nocturnal hemoglobinuria. -Current Hb 7.9 on admission, was 12.9 in September. This is normal during illness and is likely contributing to symptoms -continue home Ipt[place]opan -Hb 6.3 AM 01/11, recieved 1U PRBCs, Hb up to 8.5 as of AM 01/12 -f/u AM Hb and transfuse if <7 (3) Type II spinal muscular atrophy: Assessment and plan: -She is wheelchair dependant, uses device for transfer, will requires additional assistance (4) Asthma: Assessment and plan: -without acute exacerbation -continue home symbicort (5) Anxiety: Assessment and plan: -controlled at baseline, continue venlafaxine (6) DVT prophylaxis: Status: Acute Assessment and plan: -Now s/p thoracentesis/drain, she has risk factors of decreased mobility and infection -will treat with enoxaparin, monitor plts Subjective Subjective Interval history since last seen: Patient states that she feels well despite having chest tube entering fluid on her lung. Lytic therapy was done and patient experience no pain or discomfort. She has no complaints or concerns at this time. Exam Narrative Exam Narrative: Well-appearing female laying in bed in no acute distress, ANO x 4, heart regular rhythm, lungs with diminished breath sounds throughout left lung failure particularly in lower half, abdomen soft, nontender, nondistended, chest tube and placed in the left without surrounding erythema or drainage Objective Last Vital Signs Temp 98.2 F 01/13/25 10:44 Pulse 113 H 01/13/25 10:44 Resp 16 01/13/25 10:44 BP 117/77 01/13/25 10:44 Pulse Ox 97 01/13/25 10:44 Laboratory Results - last 24 hr 01/13/25 06:10 WBC 5.03 RBC 2.78 L Hgb 8.1 L Hct 26.1 L MCV 94 MCH 29.1 MCHC 31.0 L RDW 15.4 H Plt Count 105 L MPV 9.3 Sodium 139 Potassium 3.5 Chloride 103 Carbon Dioxide 28.0 Anion Gap 8.0 BUN 6 L Creatinine 0.1 L Est GFR (CKD-EPI 2020) 175.79 Glucose 75 Calcium 8.0 L Total Bilirubin 0.6 AST 18 ALT 32 Alkaline Phosphatase 83 Total Protein 5.6 L Albumin 1.4 L Time Spent with Patient Time Spent with Patient: >50 minutes Time was spent: preparing to see the patient(eg.review tests), obtaining and/or reviewing separately otained hiistory, ordering medications,tests, procedures, referring, communicating with other health post acute care nurse, indepentently interpreting results, counseling the patient and care coordination
[2025-01-13] MEDS: Ondansetron O.D.T. 4 MG TABEF PO (13:48)
[2025-01-13] MEDS: oxyCODONE 5 MG TAB PO (13:48)
[2025-01-13 14:14] VITALS: BP 126/90; PULSE 115; RESP 18; TEMP 37.3; O2SAT 97
[2025-01-13] MEDS: cefTRIAXone 2 GM/50 ML BAG IVPB (17:30)
[2025-01-13 19:27] VITALS: BP 129/83; PULSE 126; RESP 20; TEMP 37.1; O2SAT 95
[2025-01-13] MEDS: Ibuprofen 200 MG TAB 400 MG PO (19:31)
[2025-01-13] MEDS: Loratidine 10 MG TAB PO (20:30)
[2025-01-13] MEDS: Prenatal Multivitamin w/CA,FE TAB 1 TAB PO (20:30)
[2025-01-13] MEDS: Folic Acid 1 MG TAB PO (20:30)
[2025-01-13 23:39] VITALS: BP 122/82; PULSE 107; RESP 19; TEMP 36.2; O2SAT 93
--- NOTE | 2025-01-14 | DI.RAD_ITS ---
Exam(s) XR PORTABLE CHEST AP EXAM: XR PORTABLE CHEST AP CLINICAL HISTORY: loculated effusion TECHNIQUE: 2D digital imaging was performed of the chest. One image was obtained. An AP view was obtained. COMPARISON: CR,XR XR PORTABLE CHEST AP from 01/13/2025 FINDINGS: MEDIASTINUM: Normal. HEART: Normal. PULMONARY VASCULATURE: Normal. LUNGS: The right lung remains clear. The opacities in the left lung are stable. PLEURAL SPACE: There is persistent left fluid collection along the lateral wall which may be loculated. It is unchanged. There is no right pleural effusion. BONE:Within normal limits for the patient's age. The orthopedic furuncle lumbar rods are stable. OTHER FINDINGS:The left percutaneous chest tube is stable in position. IMPRESSION: There has been no significant change in appearance of the chest x-ray compared to the examination from 01/13/2025. DATA REPOSITORY: RADIATION DOSE DELIVERED:
[2025-01-14] MEDS: AMPICILLIN/SULBACTAM 3 GM in Normal Saline 100 ML IVPB ×4 (04:09→21:58)
[2025-01-14 06:01] LABS: HCT 26.3 % (36.0-46.0); HGB 8.4 g/dL (11.2-15.7); MCH 29.9 pg (27.0-33.0); MCHC 31.9 % (32.0-36.0); MCV 94 fL (80-95); MPV 9.1 fL (8.0-11.0); Platelet Count 124 10^3/uL (130-400); RBC 2.81 10^6/uL (3.93-5.22); RDW 15.2 % (11.7-14.6); RDW-SD 51.0 fL; WBC 4.96 10^3/uL (4.4-10.8)
[2025-01-14 06:53] LABS: ALT 30 U/L (14-59); AST 17 U/L (15-37); Albumin 1.4 g/dL (3.4-5.0); Alkaline Phosphatase 83 U/L (46-116); Anion Gap 7.3 mmol/L (3-11); BUN 5 mg/dL (7-18); Bilirubin, Total 0.7 mg/dL (0.2-1.0); CO2 28.7 mmol/L (21.0-32.0); Calcium 8.0 mg/dL (8.5-10.1); Chloride 102 mmol/L (98-107); Estimated GFR 148.75 (mL/min/1.73m2); Glucose 79 mg/dL (74-106); Potassium 3.2 mmol/L (3.5-5.1); Sodium 138 mmol/L (136-145); Total Protein 5.4 g/dL (6.4-8.2)
--- NOTE | 2025-01-14 06:54 | PGE_ITS ---
Assessment and Plan Assessment and plan (1) Empyema: Status: Acute (2) Streptococcal pneumonia: Status: Acute (3) Atelectasis of left lung: Status: Acute (4) Paroxysmal nocturnal hemoglobinuria: Status: Acute General Date Of Service Date of service: 01/14/25 Time of Service: 06:54 Reason for Consult: Pleural effusion Recommendations: Assessment: 1. Left empyema - complete pleural fluid analysis pending. Pleural fluid appeared purulent. Glucose low, WBC very high in pleural fluid with neutrophil predominance. Culture positive for strep pneumonia (penicillin sensitive) 2. Streptococcal pneumonia 3. Dyspnea - due to left pneumonia, left empyema, and left atelectasis - improved 4. PNH 5. Spinal muscular atrophy 6. Anemia - Hb stable at 8.4 Recommendations: - continue unasyn for strep pneumonia and empyema. Can d/c ceftriaxone and doxycycline. Tentatively plan for ~4 weeks of antibiotics - continue with intrapleural TPA/DNAase instillations (#2/6 this AM) - will plan to repeat CT chest after intrapleural lytics are complete to assess response. Hopefully will be able to avoid surgery. Her lung appears to be expanding as the pleural fluid is removed Subjective Note Note: 44 year old with past medical history of asthma, Type 2 spinal muscular atrophy, chronic weakness of the upper and lower extremities, paroxysmal nocturnal hemoglobinuria - managed by [facility]. She presented to the ED with SOB and left sided chest pain. Prior to presentation to the ED she had been ill 3 weeks prior requiring steroids and abx. She was experiencing coughing, nausea and vomiting. After starting prednisone, she developed bilateral upper and lower extremity swelling as well as abdominal. This was waxing and waning. She notes one episode of choking on food, but felt she cleared this well. Imaging obtained in the ED reveals large left sided pleural effusion. 14 Fr pigtail chest tube placed on 01/10. Pleural fluid analysis consistent withe an empyema. Pleural fluid culture positive for strep pneumoniae. Intrapleural TPA/DNAase initiated 01/13. Chest tube has drained another ~500 mL since the first dose of fibrinolytics yesterday. Had some chest pain initially after TPA/DNAase, but has since improved. Dyspnea improved. Afebrile ROS: 6 pt ROS negative except as above Exam Narrative Exam Narrative: General: alert, no acute distress Head: normocephalic ENT: no stridor, trachea midline CV: mild tachycardia, regular rhythm Respiratory: no wheezing, no crackles, no rhonchi, no prolonged expiration GI: abd soft, non-tender, non-distended Skin: no rashes, left posterior chest tube in place Extremities: no edema, no digital clubbing Psych: normal affect Objective Last Vital Signs Temp 36.2 C L 01/13/25 23:39 Pulse 107 H 01/13/25 23:39 Resp 19 01/13/25 23:39 BP 122/82 01/13/25 23:39 Pulse Ox 93 01/13/25 23:39 Laboratory Results - last 24 hr 01/13/25 01/14/25 06:10 05:40 WBC 5.03 4.96 RBC 2.78 L 2.81 L Hgb 8.1 L 8.4 L Hct 26.1 L 26.3 L MCV 94 94 MCH 29.1 29.9 MCHC 31.0 L 31.9 L RDW 15.4 H 15.2 H Plt Count 105 L 124 L MPV 9.3 9.1 Sodium 139 Potassium 3.5 Chloride 103 Carbon Dioxide 28.0 Anion Gap 8.0 BUN 6 L Creatinine 0.1 L Est GFR (CKD-EPI 2020) 175.79 Glucose 75 Calcium 8.0 L Total Bilirubin 0.6 AST 18 ALT 32 Alkaline Phosphatase 83 Total Protein 5.6 L Albumin 1.4 L Results Medications Medications: Active Medications Generic Name Dose Route Start Last Admin Trade Name Freq PRN Reason Stop Dose Admin Acetaminophen 650 mg 01/09/25 16:41 Acetaminophen 325 Mg Tab PO Q4H PRN PRN Albuterol Sulfate 2.5 mg 01/09/25 16:41 01/12/25 08:56 Albuterol 2.5 Mg/3 Ml Inh Soln Vial UPD 2.5 mg Q2H PRN PRN Administration Albuterol Sulfate 2 puff 01/09/25 16:48 Albuterol Hfa 8 Gm 60 Puff Inh IH Q4H PRN PRN shortness of breath or wheezing Budesonide/Formoterol Fumarate 1 puff 01/09/25 20:00 01/13/25 19:46 Budesonide/Formoterol 160/4.5 6 Gm 60 Puff Inh IH 1 puff BID REBEKAH Administration Alteplase, Recombinant 10 mg/ 0 mg 01/13/25 12:00 01/14/25 06:51 Sodium Chloride 50 ml UD 01/16/25 00:01 Not Given Q12H REBEKAH Dornase Jordan 5 mg/ Sterile 0 mg 01/13/25 12:00 01/14/25 06:51 Water 30 ml UD 01/16/25 00:01 Not Given Q12H REBEKAH Doxycycline Hyclate 100 mg 01/09/25 20:00 01/13/25 20:30 Doxycycline Hyclate 100 Mg Cap PO 100 mg BID REBEKAH Administration Ferrous Gluconate 324 mg 01/11/25 08:30 01/13/25 08:21 Ferrous Gluconate 324 Mg Tab PO 324 mg DAILY REBEKAH Administration Folic Acid 1 mg 01/10/25 20:00 01/13/25 20:30 Folic Acid 1 Mg Tab PO 1 mg HS REBEKAH Administration Ceftriaxone Sodium/Dextrose 2 gm in 50 mls @ 100 mls/hr 01/09/25 18:00 01/13/25 18:08 Rocephin IVPB Infused Q24H [facility] Infusion Ampicillin Sodium/Sulbactam 100 mls @ 200 mls/hr 01/11/25 10:00 01/14/25 04:45 Sodium 3 gm/ Sodium Chloride IVPB Infused Q6H [facility] Infusion IV Miscellaneous Supplies 1 each 01/10/25 15:00 Iv Access IV DIRECTED [facility] Ibuprofen 400 mg 01/09/25 16:48 01/13/25 19:31 Ibuprofen 200 Mg Tab PO 400 mg QID PRN PRN Administration fever or pain Lidocaine HCl 20 ml 01/10/25 09:00 Lidocaine 1% Multi-Dose 20 Ml Vial IJ DIRECTED [facility] Loratadine 10 mg 01/10/25 20:00 01/13/25 20:30 Loratidine 10 Mg Tab PO 10 mg HS [facility] Administration Magnesium Oxide 400 mg 01/13/25 08:30 01/13/25 08:21 Magnesium Oxide 400 Mg Tab PO 400 mg DAILY REBEKAH Administration Ondansetron HCl 4 mg 01/09/25 17:37 01/13/25 13:48 Ondansetron O.D.T. 4 Mg Tabef PO 4 mg Q8H PRN PRN Administration Oxycodone HCl 5 mg 01/10/25 14:59 01/13/25 13:48 Oxycodone 5 Mg Tab PO 5 mg Q4H PRN PRN Administration Pt's Own Iptacopan [ 1 each 01/10/25 20:00 01/13/25 22:36 Fabhalta] 200 Mg PO Not Given Capsule BID REBEKAH Polyethylene Glycol 17 gm 01/09/25 16:35 Polyethylene Glycol 3350 17 Gm Packet PO DAILY PRN PRN Constipation Multivitamins 1 tab 01/10/25 20:00 01/13/25 20:30 Multivitamin W/Ca,Fe Tab PO 1 tab HS REBEKAH Administration Sodium Chloride 0 ml 01/09/25 23:29 01/13/25 03:59 Normal Saline Flush 10 Ml Syr IVP 10 ml PRN PRN Administration Sodium Chloride 0 ml 01/10/25 08:30 01/13/25 20:30 Normal Saline Flush 10 Ml Syr IVP 10 ml BID REBEKAH Administration Venlafaxine HCl 37.5 mg 01/10/25 08:30 01/13/25 08:21 Venlafaxine 37.5 Mg Capcr PO 37.5 mg QAM REBEKAH Administration Allergies ciprofloxacin (From Cipro) Allergy (Intermediate, Verified 01/09/25 13:28) Topical Irritation codeine Allergy (Intermediate, Verified 01/09/25 13:28) vomit Labs 01/14/25 05:40 01/13/25 06:10 Labs: 01/10/25 12:14 Pleural - Left Anaerobic Culture - Preliminary 01/10/25 12:14 Pleural - Left Body Fluid Culture - Preliminary Streptococcus pneumoniae 01/10/25 12:14 Pleural - Left Gram Stain - Final Laboratory Tests Range/Units 01/09/25 01/09/25 01/09/25 14:05 15:09 17:13 WBC (4.4-10.8) 10^3/uL RBC (3.93-5.22) 10^6/uL Hgb (11.2-15.7) g/dL Hct (36.0-46.0) % MCV (80-95) fL MCH (27.0-33.0) pg MCHC (32.0-36.0) % RDW (11.7-14.6) % Plt Count (130-400) 10^3/uL MPV (8.0-11.0) fL PT (9.1-11.1) sec 10.8 INR (0.9-1.1) 1.1 APTT (20.6-30.2) sec 21.3 Sodium (136-145) mmol/L Potassium (3.5-5.1) mmol/L Chloride (98-107) mmol/L Carbon Dioxide (21.0-32.0) mmol/L Anion Gap (3-11) mmol/L BUN (7-18) mg/dL Creatinine (0.55-1.02) mg/dL Est GFR (CKD-EPI 2020) (mL/min/1.73m2) Glucose (74-106) mg/dL Calcium (8.5-10.1) mg/dL Magnesium (1.8-2.4) mg/dL Iron (50-170) ug/dL TIBC (250-450) ug/dL Transferrin % Sat (15-50) % Total Bilirubin (0.2-1.0) mg/dL AST (15-37) U/L ALT (14-59) U/L Alkaline Phosphatase (46-116) U/L Troponin I (<or=51) ng/L 8 8 12 NT-Pro-B Natriuret Pep (<300) pg/mL 570 H Total Protein (6.4-8.2) g/dL Albumin (3.4-5.0) g/dL Procalcitonin ng/mL Fluid Type Fluid Source Fluid Color Fluid Clarity Fluid WBC (0) uL Fld Polynuclear WBCs % % Fluid Mononuclear Cell % Fluid Glucose (See Note) mg/dL Fluid Total Protein g/dL ABO/Rh Blood Type Recheck Antibody Screen Crossmatch Range/Units 01/10/25 01/10/25 01/10/25 06:25 06:45 12:14 WBC (4.4-10.8) 10^3/uL 5.28 RBC (3.93-5.22) 10^6/uL 2.74 L Hgb (11.2-15.7) g/dL 7.9 L Hct (36.0-46.0) % 25.9 L MCV (80-95) fL 95 MCH (27.0-33.0) pg 28.8 MCHC (32.0-36.0) % 30.5 L RDW (11.7-14.6) % 15.9 H Plt Count (130-400) 10^3/uL 163 MPV (8.0-11.0) fL 9.3 PT (9.1-11.1) sec INR (0.9-1.1) APTT (20.6-30.2) sec Sodium (136-145) mmol/L 135 L Potassium (3.5-5.1) mmol/L 2.9 L* Chloride (98-107) mmol/L 97 L Carbon Dioxide (21.0-32.0) mmol/L 26.5 Anion Gap (3-11) mmol/L 11.5 H BUN (7-18) mg/dL 7 Creatinine (0.55-1.02) mg/dL 0.1 L Est GFR (CKD-EPI 2020) (mL/min/1.73m2) 175.79 Glucose (74-106) mg/dL 64 L Calcium (8.5-10.1) mg/dL 8.1 L Magnesium (1.8-2.4) mg/dL 1.9 Iron (50-170) ug/dL 28 L TIBC (250-450) ug/dL 158 L Transferrin % Sat (15-50) % 18 Total Bilirubin (0.2-1.0) mg/dL AST (15-37) U/L ALT (14-59) U/L Alkaline Phosphatase (46-116) U/L Troponin I (<or=51) ng/L NT-Pro-B Natriuret Pep (<300) pg/mL Total Protein (6.4-8.2) g/dL Albumin (3.4-5.0) g/dL Procalcitonin ng/mL < 0.10 Fluid Type Left Pleural Fluid Source Pleural Fluid Color Yellow Fluid Clarity Purulent Fluid WBC (0) uL [id number] Fld Polynuclear WBCs % % 75 Fluid Mononuclear Cell % 25 Fluid Glucose (See Note) mg/dL <20 Fluid Total Protein g/dL 3.9 ABO/Rh Blood Type Recheck Antibody Screen Crossmatch Range/Units 01/11/25 01/11/25 01/11/25 05:57 09:47 22:15 WBC (4.4-10.8) 10^3/uL 5.82 RBC (3.93-5.22) 10^6/uL 2.11 L Hgb (11.2-15.7) g/dL 6.3 L* 8.7 L D Hct (36.0-46.0) % 20.1 L* 27.2 L MCV (80-95) fL 95 MCH (27.0-33.0) pg 29.9 MCHC (32.0-36.0) % 31.3 L RDW (11.7-14.6) % 15.9 H Plt Count (130-400) 10^3/uL 156 MPV (8.0-11.0) fL 9.0 PT (9.1-11.1) sec INR (0.9-1.1) APTT (20.6-30.2) sec Sodium (136-145) mmol/L 136 Potassium (3.5-5.1) mmol/L 4.8 D Chloride (98-107) mmol/L 102 Carbon Dioxide (21.0-32.0) mmol/L 27.1 Anion Gap (3-11) mmol/L 6.9 BUN (7-18) mg/dL 5 L Creatinine (0.55-1.02) mg/dL 0.1 L Est GFR (CKD-EPI 2020) (mL/min/1.73m2) 175.79 Glucose (74-106) mg/dL 77 Calcium (8.5-10.1) mg/dL 8.3 L Magnesium (1.8-2.4) mg/dL Iron (50-170) ug/dL TIBC (250-450) ug/dL Transferrin % Sat (15-50) % Total Bilirubin (0.2-1.0) mg/dL 0.9 AST (15-37) U/L 18 ALT (14-59) U/L 39 Alkaline Phosphatase (46-116) U/L 88 Troponin I (<or=51) ng/L NT-Pro-B Natriuret Pep (<300) pg/mL Total Protein (6.4-8.2) g/dL 5.5 L Albumin (3.4-5.0) g/dL 1.5 L Procalcitonin ng/mL Fluid Type Fluid Source Fluid Color Fluid Clarity Fluid WBC (0) uL Fld Polynuclear WBCs % % Fluid Mononuclear Cell % Fluid Glucose (See Note) mg/dL Fluid Total Protein g/dL ABO/Rh A Positive Blood Type Recheck A Positive Antibody Screen NEGATIVE Crossmatch See Detail Range/Units 01/12/25 01/13/25 01/14/25 06:30 06:10 05:40 WBC (4.4-10.8) 10^3/uL 5.28 5.03 4.96 RBC (3.93-5.22) 10^6/uL 2.83 L 2.78 L 2.81 L Hgb (11.2-15.7) g/dL 8.5 L 8.1 L 8.4 L Hct (36.0-46.0) % 26.1 L 26.1 L 26.3 L MCV (80-95) fL 92 94 94 MCH (27.0-33.0) pg 30.0 29.1 29.9 MCHC (32.0-36.0) % 32.6 31.0 L 31.9 L RDW (11.7-14.6) % 15.8 H 15.4 H 15.2 H Plt Count (130-400) 10^3/uL 124 L 105 L 124 L MPV (8.0-11.0) fL 8.7 9.3 9.1 PT (9.1-11.1) sec INR (0.9-1.1) APTT (20.6-30.2) sec Sodium (136-145) mmol/L 138 139 Potassium (3.5-5.1) mmol/L 3.8 D 3.5 Chloride (98-107) mmol/L 103 103 Carbon Dioxide (21.0-32.0) mmol/L 27.1 28.0 Anion Gap (3-11) mmol/L 7.9 8.0 BUN (7-18) mg/dL 5 L 6 L Creatinine (0.55-1.02) mg/dL 0.1 L 0.1 L Est GFR (CKD-EPI 2020) (mL/min/1.73m2) 175.79 175.79 Glucose (74-106) mg/dL 77 75 Calcium (8.5-10.1) mg/dL 7.7 L 8.0 L Magnesium (1.8-2.4) mg/dL 1.6 L Iron (50-170) ug/dL TIBC (250-450) ug/dL Transferrin % Sat (15-50) % Total Bilirubin (0.2-1.0) mg/dL 0.9 0.6 AST (15-37) U/L 12 L 18 ALT (14-59) U/L 30 32 Alkaline Phosphatase (46-116) U/L 79 83 Troponin I (<or=51) ng/L NT-Pro-B Natriuret Pep (<300) pg/mL Total Protein (6.4-8.2) g/dL 5.4 L 5.6 L Albumin (3.4-5.0) g/dL 1.4 L 1.4 L Procalcitonin ng/mL Fluid Type Fluid Source Fluid Color Fluid Clarity Fluid WBC (0) uL Fld Polynuclear WBCs % % Fluid Mononuclear Cell % Fluid Glucose (See Note) mg/dL Fluid Total Protein g/dL ABO/Rh Blood Type Recheck Antibody Screen Crossmatch Imaging Chest x-ray: report reviewed and image reviewed
[2025-01-14 07:32] VITALS: BP 118/96; PULSE 99; RESP 17; TEMP 36.6; O2SAT 95
[2025-01-14] MEDS: Normal Saline Flush 10 ML SYR IVP ×4 (08:04→20:16)
[2025-01-14] MEDS: Budesonide/Formoterol 160/4.5 6 GM 60 PUFF INH IH ×2 (08:05→20:08)
[2025-01-14] MEDS: Ferrous Gluconate 324 MG TAB PO (08:08)
[2025-01-14] MEDS: Magnesium Oxide 400 MG TAB PO (08:09)
[2025-01-14] MEDS: Ondansetron O.D.T. 4 MG TABEF PO ×2 (08:10→16:01)
[2025-01-14] MEDS: Venlafaxine 37.5 MG CAPCR PO (08:10)
[2025-01-14] MEDS: oxyCODONE 5 MG TAB PO ×2 (08:15→15:58)
[2025-01-14 08:37] LABS: Streptococcus Pneumoniae Ag, U Positive (Negative)
[2025-01-14] MEDS: fentaNYL 100 MCG/2 ML VIAL 25 MCG IVP ×2 (09:45→17:18)
[2025-01-14] MEDS: WATER FOR INJECTION UD ×2 (09:49→17:19)
[2025-01-14] MEDS: DORNASE ALFA UD ×2 (09:49→17:19)
[2025-01-14] MEDS: ALTEPLASE UD ×2 (09:49→17:19)
[2025-01-14] MEDS: STERILE UD ×2 (09:49→17:19)
[2025-01-14] MEDS: SODIUM CHLORIDE UD ×2 (09:49→17:19)
[2025-01-14 11:21] VITALS: BP 101/65; PULSE 100; RESP 17; TEMP 36.8; O2SAT 94
--- NOTE | 2025-01-14 11:44 | PDOC.CMPRO ---
Date of service: 01/14/25 Time of Service: 11:44 Care Management Progress Note Progress Note Text Progress Note Text: Thao was lying in bed and awake when CM met with her. Jerman was present and sitting on the cott in the room. Both Thao and Jerman were pleasant and engage in conversation easily. Per report, Thao had a repeat x-ray which showed improvement. Thao states she is feeling better. CM will continue to follow. Discharge Potential Discharge Needs: PCP F/U Appt and Surgical F/U Appt Anticipated Barriers to Discharge: None Identified Patient/Family Education Needs: Review discharge instructions, discuss Ask Me Three Plan: Anticipate Thao will be discharged home once medically ready. If she is d/c'd with chest tube, it is recommended she have new HH RN. It is recommended she follow up with her community providers, pulmonology, and discharge plan of care. She will transport via private vehicle by her family. CM will follow. Social Determinants of Health Screening Social Determinants of health last assessed in clinic: 01/10/25 Will the Patient Participate in the Screening?: Unable to obtain Do you worry about having a steady place to live?: choose not to answer Problems where you live: no known problems In the past 12 months, have you had to go without electric, gas, oil or water in your home?: choose not to answer Has lack of transportation kept you from medical appointments or from doing things needed for daily living?: choose not to answer Has anyone in your life made you feel unsafe or unsupported?: choose not to answer How hard is it for you to pay for the very basics like food, housing, medical care, and heating? Would you say it is:: Not hard at all Do you want help finding or keeping work or a job?: I do not need or want help If for any reason you need help with day-to-day activities such as bathing, preparing meals, shopping, managing finances, etc., do you get the help you need?: I don?t need any help How often do you feel lonely or isolated from those around you?: Never Do you speak a language other than Swedish at home?: No Does the patient want assistance with any of the above?: No Health Related Social Needs Health related social needs: material hardship(utilities) (Z59.12)
--- NOTE | 2025-01-14 12:59 | NUR.NOTE ---
Nursing Note: Documentation by Brigid Cochran, DONALD student reviewed.
[2025-01-14] MEDS: Ibuprofen 200 MG TAB 400 MG PO (13:17)
--- NOTE | 2025-01-14 15:00 | W.PM.PROGNOT ---
Date of Service Date of service: 01/14/25 Time of Service: 15:00 Assessment and Plan Assessment and plan (1) Empyema: Status: Acute Assessment and plan: -Large symptomatic effusion, started in setting of respiratory infection 3 weeks ago and 2 weeks of steroids. -Now draining fluid c/w empyema. -Continue with ceftriaxone and doxycycline (had azithro as outpatient) with cultures pending. -Appreciate pulmonary guidance; first dose of lytic therapy given around 12:20 PM on 01/13/2025 resulting in 600cc of purulent fluid drainage through AM 01/14 -will give lytics BID starting AM 01/14/2025 with last dose being AM 01/16 (2) Hemolytic anemia: Status: Acute Assessment and plan: -History of iron deficiency and hemolysis due to paroxysmal nocturnal hemoglobinuria. -Current Hb 7.9 on admission, was 12.9 in September. This is normal during illness and is likely contributing to symptoms -continue home Iptacopan -Hb 6.3 AM 01/11, recieved 1U PRBCs, Hb up to 8.5 as of AM 01/12 -f/u AM Hb and transfuse if <7 (3) Type II spinal muscular atrophy: Assessment and plan: -She is wheelchair dependant, uses device for transfer, will requires additional assistance (4) Asthma: Assessment and plan: -without acute exacerbation -continue home symbicort (5) Anxiety: Assessment and plan: -controlled at baseline, continue venlafaxine (6) DVT prophylaxis: Status: Acute Assessment and plan: -Now s/p thoracentesis/drain, she has risk factors of decreased mobility and infection -will treat with enoxaparin, monitor plts Subjective Subjective Interval history since last seen: Patient states that she is happy that lytic therapy has led to further drainage and improvement of her lungs. She has no complaints concerns at this time. Exam Narrative Exam Narrative: Well-appearing female laying in bed in no acute distress, ANO x 4, heart regular rhythm, lungs with diminished breath sounds throughout left lung failure particularly in lower half, abdomen soft, nontender, nondistended, chest tube and placed in the left without surrounding erythema or drainage Objective Last Vital Signs Temp 98.2 F 01/14/25 11:21 Pulse 100 H 01/14/25 11:21 Resp 17 01/14/25 11:21 BP 101/65 01/14/25 11:21 Pulse Ox 94 01/14/25 11:21 Laboratory Results - last 24 hr 01/10/25 01/10/25 01/13/25 12:14 20:00 06:10 WBC RBC Hgb Hct MCV MCH MCHC RDW Plt Count MPV Sodium Potassium Chloride Carbon Dioxide Anion Gap BUN Creatinine Est GFR (CKD-EPI 2020) Glucose Calcium Ionized Calcium 1.05 L Total Bilirubin AST ALT Alkaline Phosphatase Total Protein Albumin Fluid Type Left Pleural Fluid LDH >9000 Ur Strep pneumoniae Ag Positive A 01/14/25 05:40 WBC 4.96 RBC 2.81 L Hgb 8.4 L Hct 26.3 L MCV 94 MCH 29.9 MCHC 31.9 L RDW 15.2 H Plt Count 124 L MPV 9.1 Sodium 138 Potassium 3.2 L Chloride 102 Carbon Dioxide 28.7 Anion Gap 7.3 BUN 5 L Creatinine 0.2 L Est GFR (CKD-EPI 2020) 148.75 Glucose 79 Calcium 8.0 L Ionized Calcium Total Bilirubin 0.7 AST 17 ALT 30 Alkaline Phosphatase 83 Total Protein 5.4 L Albumin 1.4 L Fluid Type Fluid LDH Ur Strep pneumoniae Ag Time Spent with Patient Time Spent with Patient: >50 minutes Time was spent: preparing to see the patient(eg.review tests), obtaining and/or reviewing separately otained hiistory, ordering medications,tests, procedures, referring, communicating with other health manager urgent care, indepentently interpreting results, counseling the patient and care coordination
[2025-01-14 15:09] VITALS: BP 105/70; PULSE 112; RESP 17; TEMP 36.6; O2SAT 95
[2025-01-14 19:05] VITALS: BP 106/77; PULSE 114; RESP 16; TEMP 36.4; O2SAT 94
[2025-01-14] MEDS: Loratidine 10 MG TAB PO (20:15)
[2025-01-14] MEDS: Prenatal Multivitamin w/CA,FE TAB 1 TAB PO (20:15)
[2025-01-14] MEDS: Folic Acid 1 MG TAB PO (20:15)
[2025-01-14] MEDS: Potassium Chloride 20 MEQ TABCR PO (20:16)
[2025-01-14 20:53] VITALS: PULSE 63; RESP 16; O2SAT 96
[2025-01-14 22:30] VITALS: BP 116/81; PULSE 113; RESP 16; TEMP 36.8; O2SAT 97
[2025-01-14] MEDS: Lactobacillus Acidophilus CAP 1 CAP PO (22:37)
[2025-01-15] MEDS: AMPICILLIN/SULBACTAM 3 GM in Normal Saline 100 ML IVPB ×4 (04:04→22:11)
[2025-01-15] MEDS: Normal Saline Flush 10 ML SYR IVP ×9 (04:05→20:12)
--- NOTE | 2025-01-15 06:00 | DI.RAD_ITS ---
Exam(s) XR PORTABLE CHEST AP EXAM: XR PORTABLE CHEST AP CLINICAL HISTORY: loculated effusion TECHNIQUE: 2D digital imaging was performed of the chest. One image was obtained. An AP view was obtained. COMPARISON: CR,XR XR PORTABLE CHEST AP from 01/12/2025 CR,XR XR PORTABLE CHEST AP from 01/13/2025 CR XR PORTABLE CHEST AP from 01/14/2025 FINDINGS: MEDIASTINUM: Normal. HEART: Normal. PULMONARY VASCULATURE: Normal. LUNGS: There is a persistent left perihilar and basilar infiltrate present. Atelectasis is now seen in the right lung base. PLEURAL SPACE: There is again seen an opacity along the left lateral hemithorax which may represent a loculated pleural effusion. There is also question James lucency in the inferior lateral aspect of the left hemithorax which may represent a pneumothorax. BONE:Within normal limits for the patient's age. Thoracolumbar spinal rods are again seen. OTHER FINDINGS:The left chest tube is stable in position. IMPRESSION: 1. Stable infiltrate in the left lung. 2. Stable left pleural effusion which may be loculated. 3. Question of a small left pneumothorax. 4. Right basilar atelectasis. DATA REPOSITORY: RADIATION DOSE DELIVERED:
[2025-01-15 06:41] LABS: HCT 27.1 % (36.0-46.0); HGB 8.7 g/dL (11.2-15.7); MCH 30.1 pg (27.0-33.0); MCHC 32.1 % (32.0-36.0); MCV 94 fL (80-95); MPV 8.8 fL (8.0-11.0); Platelet Count 114 10^3/uL (130-400); RBC 2.89 10^6/uL (3.93-5.22); RDW 15.4 % (11.7-14.6); RDW-SD 51.5 fL; WBC 4.97 10^3/uL (4.4-10.8)
[2025-01-15 06:55] LABS: Anion Gap 5.2 mmol/L (3-11); BUN 4 mg/dL (7-18); CO2 30.8 mmol/L (21.0-32.0); Calcium 8.0 mg/dL (8.5-10.1); Chloride 101 mmol/L (98-107); Estimated GFR 148.75 (mL/min/1.73m2); Glucose 76 mg/dL (74-106); Potassium 4.1 mmol/L (3.5-5.1); Sodium 137 mmol/L (136-145)
[2025-01-15 07:17] VITALS: BP 121/80; PULSE 109; RESP 17; TEMP 37.3; O2SAT 96
--- NOTE | 2025-01-15 08:01 | PGE_ITS ---
Assessment and Plan Assessment and plan (1) Empyema: Status: Acute (2) Streptococcal pneumonia: Status: Acute (3) Atelectasis of left lung: Status: Acute (4) Paroxysmal nocturnal hemoglobinuria: Status: Acute General Date Of Service Date of service: 01/15/25 Time of Service: 08:02 Reason for Consult: Pleural effusion Recommendations: Assessment: 1. Left empyema - Pleural fluid analysis consistent with empyema (LDH > 9000, glucose < 20, culture positive for strep pneum). Currently receiving intrapleural TPA/DNAase 2. Streptococcal pneumonia 3. Dyspnea - due to left pneumonia, left empyema, and left atelectasis - improved 4. PNH - Hb stable 5. Spinal muscular atrophy Recommendations: - continue unasyn for strep pneumonia and empyema. Tentatively plan for ~4 weeks of antibiotics - continue with intrapleural TPA/DNAase instillations (#4/6 this AM). Plan for CT chest tomorrow afternoon to assess for any residual loculated pleural fluid Discussed with Dr. Leary Subjective Note Note: 44 year old with past medical history of asthma, Type 2 spinal muscular atrophy, chronic weakness of the upper and lower extremities, paroxysmal nocturnal hemoglobinuria - managed by [facility]. She presented to the ED with SOB and left sided chest pain. Prior to presentation to the ED she had been ill 3 weeks prior requiring steroids and abx. She was experiencing coughing, nausea and vomiting. After starting prednisone, she developed bilateral upper and lower extremity swelling as well as abdominal. This was waxing and waning. She notes one episode of choking on food, but felt she cleared this well. Imaging obtained in the ED reveals large left sided pleural effusion. 14 Fr pigtail chest tube placed on 01/10. Pleural fluid analysis consistent withe an empyema. Pleural fluid culture positive for strep pneumoniae. Intrapleural TPA/DNAase initiated 01/13. Chest tube has had ~1.5 L out over the past day, with use of intrapleural TPA/DNAase. Had some mild chest pain. Dyspnea improving. Has a mild cough. ROS: 6 pt ROS negative except as above Exam Narrative Exam Narrative: General: alert, no acute distress Head: normocephalic ENT: no stridor, trachea midline CV: mild tachycardia, regular rhythm Respiratory: no wheezing, no crackles, no rhonchi, no prolonged expiration GI: abd soft, non-tender, non-distended Skin: no rashes, left posterior chest tube in place Extremities: no edema, no digital clubbing Psych: normal affect Objective Last Vital Signs Temp 37.3 C 01/15/25 07:17 Pulse 109 H 01/15/25 07:17 Resp 17 01/15/25 07:17 BP 121/80 01/15/25 07:17 Pulse Ox 96 01/15/25 07:17 Laboratory Results - last 24 hr 01/10/25 01/10/25 01/13/25 12:14 20:00 06:10 WBC RBC Hgb Hct MCV MCH MCHC RDW Plt Count MPV Sodium Potassium Chloride Carbon Dioxide Anion Gap BUN Creatinine Est GFR (CKD-EPI 2020) Glucose Calcium Ionized Calcium 1.05 L Fluid Type Left Pleural Fluid LDH >9000 Ur Strep pneumoniae Ag Positive A 01/15/25 06:30 WBC 4.97 RBC 2.89 L Hgb 8.7 L Hct 27.1 L MCV 94 MCH 30.1 MCHC 32.1 RDW 15.4 H Plt Count 114 L MPV 8.8 Sodium 137 Potassium 4.1 Chloride 101 Carbon Dioxide 30.8 Anion Gap 5.2 BUN 4 L Creatinine 0.2 L Est GFR (CKD-EPI 2020) 148.75 Glucose 76 Calcium 8.0 L Ionized Calcium Fluid Type Fluid LDH Ur Strep pneumoniae Ag Results Medications Medications: Active Medications Generic Name Dose Route Start Last Admin Trade Name Freq PRN Reason Stop Dose Admin Acetaminophen 650 mg 01/09/25 16:41 Acetaminophen 325 Mg Tab PO Q4H PRN PRN Acidophilus/Pectin 1 cap 01/14/25 19:30 01/14/25 22:37 Lactobacillus Acidophilus Cap PO 1 cap TID PRN PRN Administration Albuterol Sulfate 2.5 mg 01/09/25 16:41 01/12/25 08:56 Albuterol 2.5 Mg/3 Ml Inh Soln Vial UPD 2.5 mg Q2H PRN PRN Administration Albuterol Sulfate 2 puff 01/09/25 16:48 Albuterol Hfa 8 Gm 60 Puff Inh IH Q4H PRN PRN shortness of breath or wheezing Budesonide/Formoterol Fumarate 1 puff 01/09/25 20:00 01/14/25 20:08 Budesonide/Formoterol 160/4.5 6 Gm 60 Puff Inh IH 1 puff BID REBEKAH Administration Alteplase, Recombinant 10 mg/ 0 mg 01/14/25 17:00 01/14/25 17:19 Sodium Chloride 50 ml UD 01/16/25 09:01 10 mg BID@0900,1700 REBEKAH Administration Dornase Jordan 5 mg/ Sterile 0 mg 01/14/25 17:00 01/14/25 17:19 Water 30 ml UD 01/16/25 09:01 5 mg BID@0900,1700 REBEKAH Administration Fentanyl 25 mcg 01/14/25 17:07 01/14/25 17:18 Fentanyl 100 Mcg/2 Ml Vial IVP 25 mcg Q1H PRN PRN Administration Ferrous Gluconate 324 mg 01/11/25 08:30 01/14/25 08:08 Ferrous Gluconate 324 Mg Tab PO 324 mg DAILY REBEKAH Administration Folic Acid 1 mg 01/10/25 20:00 01/14/25 20:15 Folic Acid 1 Mg Tab PO 1 mg HS REBEKAH Administration Ampicillin Sodium/Sulbactam 100 mls @ 200 mls/hr 01/11/25 10:00 01/15/25 04:42 Sodium 3 gm/ Sodium Chloride IVPB Infused Q6H REBEKAH Infusion IV Miscellaneous Supplies 1 each 01/10/25 15:00 Iv Access IV DIRECTED [facility] Ibuprofen 400 mg 01/09/25 16:48 01/14/25 13:17 Ibuprofen 200 Mg Tab PO 400 mg QID PRN PRN Administration fever or pain Lidocaine HCl 20 ml 01/10/25 09:00 Lidocaine 1% Multi-Dose 20 Ml Vial IJ DIRECTED REBEKAH Loratadine 10 mg 01/10/25 20:00 01/14/25 20:15 Loratidine 10 Mg Tab PO 10 mg HS REBEKAH Administration Magnesium Oxide 400 mg 01/13/25 08:30 01/14/25 08:09 Magnesium Oxide 400 Mg Tab PO 400 mg DAILY REBEKAH Administration Ondansetron HCl 4 mg 01/09/25 17:37 01/14/25 16:01 Ondansetron O.D.T. 4 Mg Tabef PO 4 mg Q8H PRN PRN Administration Oxycodone HCl 5 mg 01/10/25 14:59 01/14/25 15:58 Oxycodone 5 Mg Tab PO 5 mg Q4H PRN PRN Administration Pt's Own Iptacopan [ 1 each 01/10/25 20:00 01/14/25 20:59 Fabhalta] 200 Mg PO Not Given Capsule BID REBEKAH Polyethylene Glycol 17 gm 01/09/25 16:35 Polyethylene Glycol 3350 17 Gm Packet PO DAILY PRN PRN Constipation Potassium Chloride 20 meq 01/14/25 20:00 01/14/25 20:16 Potassium Chloride 20 Meq Tabcr PO 20 meq BID REBEKAH Administration Multivitamins 1 tab 01/10/25 20:00 01/14/25 20:15 Multivitamin W/Ca,Fe Tab PO 1 tab HS REBEKAH Administration Sodium Chloride 0 ml 01/09/25 23:29 01/15/25 04:05 Normal Saline Flush 10 Ml Syr IVP 10 ml PRN PRN Administration Sodium Chloride 0 ml 01/10/25 08:30 01/14/25 20:16 Normal Saline Flush 10 Ml Syr IVP 10 ml BID REBEKAH Administration Venlafaxine HCl 37.5 mg 01/10/25 08:30 01/14/25 08:10 Venlafaxine 37.5 Mg Capcr PO 37.5 mg QAM REBEKAH Administration Allergies ciprofloxacin (From Cipro) Allergy (Intermediate, Verified 01/09/25 13:28) Topical Irritation codeine Allergy (Intermediate, Verified 01/09/25 13:28) vomit Labs 01/15/25 06:30 01/15/25 06:30 Labs: 01/10/25 12:14 Pleural - Left Body Fluid Culture - Preliminary Streptococcus pneumoniae 01/10/25 12:14 Pleural - Left Gram Stain - Final 01/10/25 12:14 Pleural - Left Anaerobic Culture - Preliminary Laboratory Tests Range/Units 01/09/25 01/09/25 01/09/25 14:05 15:09 17:13 WBC (4.4-10.8) 10^3/uL RBC (3.93-5.22) 10^6/uL Hgb (11.2-15.7) g/dL Hct (36.0-46.0) % MCV (80-95) fL MCH (27.0-33.0) pg MCHC (32.0-36.0) % RDW (11.7-14.6) % Plt Count (130-400) 10^3/uL MPV (8.0-11.0) fL PT (9.1-11.1) sec 10.8 INR (0.9-1.1) 1.1 APTT (20.6-30.2) sec 21.3 Sodium (136-145) mmol/L Potassium (3.5-5.1) mmol/L Chloride (98-107) mmol/L Carbon Dioxide (21.0-32.0) mmol/L Anion Gap (3-11) mmol/L BUN (7-18) mg/dL Creatinine (0.55-1.02) mg/dL Est GFR (CKD-EPI 2020) (mL/min/1.73m2) Glucose (74-106) mg/dL Calcium (8.5-10.1) mg/dL Ionized Calcium (1.14-1.35) mmol/L Magnesium (1.8-2.4) mg/dL Iron (50-170) ug/dL TIBC (250-450) ug/dL Transferrin % Sat (15-50) % Total Bilirubin (0.2-1.0) mg/dL AST (15-37) U/L ALT (14-59) U/L Alkaline Phosphatase (46-116) U/L Troponin I (<or=51) ng/L 8 8 12 NT-Pro-B Natriuret Pep (<300) pg/mL 570 H Total Protein (6.4-8.2) g/dL Albumin (3.4-5.0) g/dL Procalcitonin ng/mL Fluid Type Fluid Source Fluid Color Fluid Clarity Fluid WBC (0) uL Fld Polynuclear WBCs % % Fluid Mononuclear Cell % Fluid Glucose (See Note) mg/dL Fluid Total Protein g/dL Fluid LDH U/L Ur Strep pneumoniae Ag (Negative) ABO/Rh Blood Type Recheck Antibody Screen Crossmatch Range/Units 01/10/25 01/10/25 01/10/25 06:25 06:45 12:14 WBC (4.4-10.8) 10^3/uL 5.28 RBC (3.93-5.22) 10^6/uL 2.74 L Hgb (11.2-15.7) g/dL 7.9 L Hct (36.0-46.0) % 25.9 L MCV (80-95) fL 95 MCH (27.0-33.0) pg 28.8 MCHC (32.0-36.0) % 30.5 L RDW (11.7-14.6) % 15.9 H Plt Count (130-400) 10^3/uL 163 MPV (8.0-11.0) fL 9.3 PT (9.1-11.1) sec INR (0.9-1.1) APTT (20.6-30.2) sec Sodium (136-145) mmol/L 135 L Potassium (3.5-5.1) mmol/L 2.9 L* Chloride (98-107) mmol/L 97 L Carbon Dioxide (21.0-32.0) mmol/L 26.5 Anion Gap (3-11) mmol/L 11.5 H BUN (7-18) mg/dL 7 Creatinine (0.55-1.02) mg/dL 0.1 L Est GFR (CKD-EPI 2020) (mL/min/1.73m2) 175.79 Glucose (74-106) mg/dL 64 L Calcium (8.5-10.1) mg/dL 8.1 L Ionized Calcium (1.14-1.35) mmol/L Magnesium (1.8-2.4) mg/dL 1.9 Iron (50-170) ug/dL 28 L TIBC (250-450) ug/dL 158 L Transferrin % Sat (15-50) % 18 Total Bilirubin (0.2-1.0) mg/dL AST (15-37) U/L ALT (14-59) U/L Alkaline Phosphatase (46-116) U/L Troponin I (<or=51) ng/L NT-Pro-B Natriuret Pep (<300) pg/mL Total Protein (6.4-8.2) g/dL Albumin (3.4-5.0) g/dL Procalcitonin ng/mL < 0.10 Fluid Type Left Pleural Fluid Source Pleural Fluid Color Yellow Fluid Clarity Purulent Fluid WBC (0) uL [id number] Fld Polynuclear WBCs % % 75 Fluid Mononuclear Cell % 25 Fluid Glucose (See Note) mg/dL <20 Fluid Total Protein g/dL 3.9 Fluid LDH U/L >9000 Ur Strep pneumoniae Ag (Negative) ABO/Rh Blood Type Recheck Antibody Screen Crossmatch Range/Units 01/10/25 01/11/25 01/11/25 20:00 05:57 09:47 WBC (4.4-10.8) 10^3/uL 5.82 RBC (3.93-5.22) 10^6/uL 2.11 L Hgb (11.2-15.7) g/dL 6.3 L* Hct (36.0-46.0) % 20.1 L* MCV (80-95) fL 95 MCH (27.0-33.0) pg 29.9 MCHC (32.0-36.0) % 31.3 L RDW (11.7-14.6) % 15.9 H Plt Count (130-400) 10^3/uL 156 MPV (8.0-11.0) fL 9.0 PT (9.1-11.1) sec INR (0.9-1.1) APTT (20.6-30.2) sec Sodium (136-145) mmol/L 136 Potassium (3.5-5.1) mmol/L 4.8 D Chloride (98-107) mmol/L 102 Carbon Dioxide (21.0-32.0) mmol/L 27.1 Anion Gap (3-11) mmol/L 6.9 BUN (7-18) mg/dL 5 L Creatinine (0.55-1.02) mg/dL 0.1 L Est GFR (CKD-EPI 2020) (mL/min/1.73m2) 175.79 Glucose (74-106) mg/dL 77 Calcium (8.5-10.1) mg/dL 8.3 L Ionized Calcium (1.14-1.35) mmol/L Magnesium (1.8-2.4) mg/dL Iron (50-170) ug/dL TIBC (250-450) ug/dL Transferrin % Sat (15-50) % Total Bilirubin (0.2-1.0) mg/dL 0.9 AST (15-37) U/L 18 ALT (14-59) U/L 39 Alkaline Phosphatase (46-116) U/L 88 Troponin I (<or=51) ng/L NT-Pro-B Natriuret Pep (<300) pg/mL Total Protein (6.4-8.2) g/dL 5.5 L Albumin (3.4-5.0) g/dL 1.5 L Procalcitonin ng/mL Fluid Type Fluid Source Fluid Color Fluid Clarity Fluid WBC (0) uL Fld Polynuclear WBCs % % Fluid Mononuclear Cell % Fluid Glucose (See Note) mg/dL Fluid Total Protein g/dL Fluid LDH U/L Ur Strep pneumoniae Ag (Negative) Positive A ABO/Rh A Positive Blood Type Recheck A Positive Antibody Screen NEGATIVE Crossmatch See Detail Range/Units 01/11/25 01/12/25 01/13/25 22:15 06:30 06:10 WBC (4.4-10.8) 10^3/uL 5.28 5.03 RBC (3.93-5.22) 10^6/uL 2.83 L 2.78 L Hgb (11.2-15.7) g/dL 8.7 L D 8.5 L 8.1 L Hct (36.0-46.0) % 27.2 L 26.1 L 26.1 L MCV (80-95) fL 92 94 MCH (27.0-33.0) pg 30.0 29.1 MCHC (32.0-36.0) % 32.6 31.0 L RDW (11.7-14.6) % 15.8 H 15.4 H Plt Count (130-400) 10^3/uL 124 L 105 L MPV (8.0-11.0) fL 8.7 9.3 PT (9.1-11.1) sec INR (0.9-1.1) APTT (20.6-30.2) sec Sodium (136-145) mmol/L 138 139 Potassium (3.5-5.1) mmol/L 3.8 D 3.5 Chloride (98-107) mmol/L 103 103 Carbon Dioxide (21.0-32.0) mmol/L 27.1 28.0 Anion Gap (3-11) mmol/L 7.9 8.0 BUN (7-18) mg/dL 5 L 6 L Creatinine (0.55-1.02) mg/dL 0.1 L 0.1 L Est GFR (CKD-EPI 2020) (mL/min/1.73m2) 175.79 175.79 Glucose (74-106) mg/dL 77 75 Calcium (8.5-10.1) mg/dL 7.7 L 8.0 L Ionized Calcium (1.14-1.35) mmol/L 1.05 L Magnesium (1.8-2.4) mg/dL 1.6 L Iron (50-170) ug/dL TIBC (250-450) ug/dL Transferrin % Sat (15-50) % Total Bilirubin (0.2-1.0) mg/dL 0.9 0.6 AST (15-37) U/L 12 L 18 ALT (14-59) U/L 30 32 Alkaline Phosphatase (46-116) U/L 79 83 Troponin I (<or=51) ng/L NT-Pro-B Natriuret Pep (<300) pg/mL Total Protein (6.4-8.2) g/dL 5.4 L 5.6 L Albumin (3.4-5.0) g/dL 1.4 L 1.4 L Procalcitonin ng/mL Fluid Type Fluid Source Fluid Color Fluid Clarity Fluid WBC (0) uL Fld Polynuclear WBCs % % Fluid Mononuclear Cell % Fluid Glucose (See Note) mg/dL Fluid Total Protein g/dL Fluid LDH U/L Ur Strep pneumoniae Ag (Negative) ABO/Rh Blood Type Recheck Antibody Screen Crossmatch Range/Units 01/14/25 01/15/25 05:40 06:30 WBC (4.4-10.8) 10^3/uL 4.96 4.97 RBC (3.93-5.22) 10^6/uL 2.81 L 2.89 L Hgb (11.2-15.7) g/dL 8.4 L 8.7 L Hct (36.0-46.0) % 26.3 L 27.1 L MCV (80-95) fL 94 94 MCH (27.0-33.0) pg 29.9 30.1 MCHC (32.0-36.0) % 31.9 L 32.1 RDW (11.7-14.6) % 15.2 H 15.4 H Plt Count (130-400) 10^3/uL 124 L 114 L MPV (8.0-11.0) fL 9.1 8.8 PT (9.1-11.1) sec INR (0.9-1.1) APTT (20.6-30.2) sec Sodium (136-145) mmol/L 138 137 Potassium (3.5-5.1) mmol/L 3.2 L 4.1 Chloride (98-107) mmol/L 102 101 Carbon Dioxide (21.0-32.0) mmol/L 28.7 30.8 Anion Gap (3-11) mmol/L 7.3 5.2 BUN (7-18) mg/dL 5 L 4 L Creatinine (0.55-1.02) mg/dL 0.2 L 0.2 L Est GFR (CKD-EPI 2020) (mL/min/1.73m2) 148.75 148.75 Glucose (74-106) mg/dL 79 76 Calcium (8.5-10.1) mg/dL 8.0 L 8.0 L Ionized Calcium (1.14-1.35) mmol/L Magnesium (1.8-2.4) mg/dL Iron (50-170) ug/dL TIBC (250-450) ug/dL Transferrin % Sat (15-50) % Total Bilirubin (0.2-1.0) mg/dL 0.7 AST (15-37) U/L 17 ALT (14-59) U/L 30 Alkaline Phosphatase (46-116) U/L 83 Troponin I (<or=51) ng/L NT-Pro-B Natriuret Pep (<300) pg/mL Total Protein (6.4-8.2) g/dL 5.4 L Albumin (3.4-5.0) g/dL 1.4 L Procalcitonin ng/mL Fluid Type Fluid Source Fluid Color Fluid Clarity Fluid WBC (0) uL Fld Polynuclear WBCs % % Fluid Mononuclear Cell % Fluid Glucose (See Note) mg/dL Fluid Total Protein g/dL Fluid LDH U/L Ur Strep pneumoniae Ag (Negative) ABO/Rh Blood Type Recheck Antibody Screen Crossmatch Imaging Chest x-ray: report reviewed and image reviewed
[2025-01-15] MEDS: Budesonide/Formoterol 160/4.5 6 GM 60 PUFF INH IH ×2 (08:02→19:52)
--- NOTE | 2025-01-15 08:24 | PGE_ITS ---
Date of Service Date of service: 01/15/25 Time of Service: 08:24 Assessment and Plan Assessment and plan (1) Empyema: Status: Acute Assessment and plan: -Large symptomatic effusion, started in setting of respiratory infection 3 weeks ago and 2 weeks of steroids. -Now draining fluid c/w empyema. -cultures growin Strep. pneumo; as per Pulm now on Unasyn and will transition to PO amoxicillin for a total of 4ws of therapy -Appreciate pulmonary guidance; first dose of lytic therapy given around 12:20 PM on 01/13/2025; now total of 1,200cc purulent fluid drainage through AM 01/15 -will give lytics BID through AM 01/16 (2) Hemolytic anemia: Status: Acute Assessment and plan: -History of iron deficiency and hemolysis due to paroxysmal nocturnal hemoglobinuria. -Current Hb 7.9 on admission, was 12.9 in September. This is normal during illness and is likely contributing to symptoms -continue home Iptacopan -Hb 6.3 AM 01/11, recieved 1U PRBCs, Hb up to 8.5 as of AM 01/12 -f/u AM Hb and transfuse if <7 (3) Type II spinal muscular atrophy: Assessment and plan: -She is wheelchair dependant, uses device for transfer, will requires additional assistance (4) Asthma: Assessment and plan: -without acute exacerbation -continue home symbicort (5) Anxiety: Assessment and plan: -controlled at baseline, continue venlafaxine (6) DVT prophylaxis: Status: Acute Assessment and plan: -Now s/p thoracentesis/drain, she has risk factors of decreased mobility and infection -will treat with enoxaparin, monitor plts Subjective Subjective Interval history since last seen: Patient states that she is doing well today and continues to be optimistic about her condition given the amount of fluid being drained secondary to lytic therapy. Exam Narrative Exam Narrative: Well-appearing female laying in bed in no acute distress, ANO x 4, heart regular rhythm, lungs with improving but still somewhat diminished breath sounds throughout left lung failure particularly in 1/3, abdomen soft, nontender, nondistended, chest tube and placed in the left without surrounding erythema or drainage Objective Last Vital Signs Temp 99.1 F 01/15/25 07:17 Pulse 109 H 01/15/25 07:17 Resp 17 01/15/25 07:17 BP 121/80 01/15/25 07:17 Pulse Ox 96 01/15/25 07:17 Laboratory Results - last 24 hr 01/10/25 01/10/25 01/13/25 12:14 20:00 06:10 WBC RBC Hgb Hct MCV MCH MCHC RDW Plt Count MPV Sodium Potassium Chloride Carbon Dioxide Anion Gap BUN Creatinine Est GFR (CKD-EPI 2020) Glucose Calcium Ionized Calcium 1.05 L Fluid Type Left Pleural Fluid LDH >9000 Ur Strep pneumoniae Ag Positive A 01/15/25 06:30 WBC 4.97 RBC 2.89 L Hgb 8.7 L Hct 27.1 L MCV 94 MCH 30.1 MCHC 32.1 RDW 15.4 H Plt Count 114 L MPV 8.8 Sodium 137 Potassium 4.1 Chloride 101 Carbon Dioxide 30.8 Anion Gap 5.2 BUN 4 L Creatinine 0.2 L Est GFR (CKD-EPI 2020) 148.75 Glucose 76 Calcium 8.0 L Ionized Calcium Fluid Type Fluid LDH Ur Strep pneumoniae Ag Time Spent with Patient Time Spent with Patient: >50 minutes Time was spent: preparing to see the patient(eg.review tests), obtaining and/or reviewing separately otained hiistory, ordering medications,tests, procedures, referring, communicating with other health director of home care hospice, indepentently interpreting results, counseling the patient and care coordination
--- NOTE | 2025-01-15 08:55 | DI.VRAD_ITS ---
PROCEDURE INFORMATION: Exam: XR Chest Exam date and time: 01/15/2025 6:01 AM Age: 44 years old Clinical indication: Other: Loculated effusion; Prior surgery; Surgery date: 6+ months; Surgery type: Spinal surgery TECHNIQUE: Imaging protocol: Radiologic exam of the chest. Views: 1 view. COMPARISON: CR XR PORTABLE CHEST AP 01/14/2025 7:09 AM (REPORT NOT PROVIDED) FINDINGS: No significant interval change in left pleural catheter position or the loculated left hydropneumothorax compared to previous exam. Underlying infiltrate or atelectasis of the left lung also appears similar to the prior exam. There may be minimal atelectasis at the right base. No pulmonary vascular congestion. IMPRESSION: Findings in the left hemithorax appear stable compared to most recent portable exam of 01/14/2025. There may be minimal right basilar atelectasis on the current study. Dictated and Authenticated by: Maximo Eastman MD. Orderin Gibran Ghosh MD
[2025-01-15] MEDS: Potassium Chloride 20 MEQ TABCR PO ×2 (08:56→20:12)
[2025-01-15] MEDS: Magnesium Oxide 400 MG TAB PO (08:57)
[2025-01-15] MEDS: Ferrous Gluconate 324 MG TAB PO (08:57)
[2025-01-15] MEDS: oxyCODONE 5 MG TAB PO ×2 (08:57→17:59)
[2025-01-15] MEDS: Venlafaxine 37.5 MG CAPCR PO (08:57)
[2025-01-15] MEDS: Ondansetron O.D.T. 4 MG TABEF PO ×2 (08:59→17:59)
[2025-01-15] MEDS: Lactobacillus Acidophilus CAP 1 CAP PO ×2 (09:03→17:59)
[2025-01-15] MEDS: ALTEPLASE UD ×2 (09:25→17:08)
[2025-01-15] MEDS: fentaNYL 100 MCG/2 ML VIAL 25 MCG IVP ×2 (09:25→17:07)
[2025-01-15] MEDS: SODIUM CHLORIDE UD ×2 (09:25→17:08)
[2025-01-15] MEDS: WATER FOR INJECTION UD ×2 (09:26→17:08)
[2025-01-15] MEDS: STERILE UD ×2 (09:26→17:08)
[2025-01-15] MEDS: DORNASE ALFA UD ×2 (09:26→17:08)
--- NOTE | 2025-01-15 09:38 | CMPROGNOTE_ITS ---
Date of service: 01/15/25 Time of Service: 16:43 Care Management Progress Note Progress Note Text Progress Note Text: Thao was lying in bed and awake when CM met with her. Jerman was present and sitting on the cott in the room. A speciality bed was delivered to Thao's room today. Thao is very grateful for this. Thao and Jerman decline needing anything futher at this time. CM will continue to follow. Discharge Potential Discharge Needs: PCP F/U Appt and Surgical F/U Appt Anticipated Barriers to Discharge: None Identified Patient/Family Education Needs: Review discharge instructions, discuss Ask Me Three Plan: Anticipate Thao will be discharged home once medically ready. If she is d/c'd with chest tube, it is recommended she have new HH RN. It is recommended she follow up with her community providers, pulmonology, and discharge plan of care. She will transport via private vehicle by her family. CM will follow. Social Determinants of Health Screening Social Determinants of health last assessed in clinic: 01/15/25 Will the Patient Participate in the Screening?: Unable to obtain Do you worry about having a steady place to live?: choose not to answer Problems where you live: no known problems In the past 12 months, have you had to go without electric, gas, oil or water in your home?: choose not to answer 1. Within the past 12 months, we worried whether our food would run out before we got money to buy more.: Never true 2. Within the past 12 months, the food we bought just didn't last and we didn't have money to get more.: Never true Has lack of transportation kept you from medical appointments or from doing things needed for daily living?: choose not to answer Has anyone in your life made you feel unsafe or unsupported?: choose not to answer How hard is it for you to pay for the very basics like food, housing, medical care, and heating? Would you say it is:: Not hard at all Do you want help finding or keeping work or a job?: I do not need or want help If for any reason you need help with day-to-day activities such as bathing, preparing meals, shopping, managing finances, etc., do you get the help you need?: I don?t need any help How often do you feel lonely or isolated from those around you?: Never Do you speak a language other than Monegasque at home?: No Does the patient want assistance with any of the above?: No Health Related Social Needs Health related social needs: material hardship(utilities) (Z59.12)
[2025-01-15 11:09] VITALS: BP 112/76; PULSE 112; RESP 17; TEMP 37.3; O2SAT 95
[2025-01-15] MEDS: Ibuprofen 200 MG TAB 400 MG PO (11:39)
--- NOTE | 2025-01-15 13:55 | TELEFU_ITS ---
Date of service: 01/15/25 Time of Service: 13:55 Nutrition Note NOTE: Met with patient briefly to educate on need for increased protein due to infection. declines protein ONS - will prioritize protein at meals. denies significant unintentional weight changes, denies chewing/swallowing c oncerns or concerns moving bowels. Patient initially assessed as lower acute nutrition risk. tolerating regular diet. Will monitor nutrition-related labs, intake, weight, desire/need for any nutrit ion education Time Spent in Nutritional Counseling and Treatment: 5 min
[2025-01-15 15:08] VITALS: BP 103/76; PULSE 112; RESP 17; TEMP 37.4; O2SAT 95
[2025-01-15 19:31] VITALS: BP 118/78; PULSE 112; RESP 20; TEMP 36; O2SAT 95
[2025-01-15] MEDS: Loratidine 10 MG TAB PO (20:12)
[2025-01-15] MEDS: Folic Acid 1 MG TAB PO (20:12)
[2025-01-15] MEDS: Prenatal Multivitamin w/CA,FE TAB 1 TAB PO (20:12)
[2025-01-16] MEDS: AMPICILLIN/SULBACTAM 3 GM in Normal Saline 100 ML IVPB ×4 (03:59→21:44)
[2025-01-16 04:07] VITALS: BP 121/77; PULSE 109; RESP 16; TEMP 36.4; O2SAT 97
[2025-01-16 06:41] LABS: HCT 27.6 % (36.0-46.0); HGB 8.9 g/dL (11.2-15.7); MCH 30.2 pg (27.0-33.0); MCHC 32.2 % (32.0-36.0); MCV 94 fL (80-95); MPV 8.7 fL (8.0-11.0); Platelet Count 120 10^3/uL (130-400); RBC 2.95 10^6/uL (3.93-5.22); RDW 15.6 % (11.7-14.6); RDW-SD 51.3 fL; WBC 4.65 10^3/uL (4.4-10.8)
[2025-01-16 06:54] LABS: Anion Gap 8.4 mmol/L (3-11); BUN 3 mg/dL (7-18); CO2 27.6 mmol/L (21.0-32.0); Calcium 7.9 mg/dL (8.5-10.1); Chloride 101 mmol/L (98-107); Glucose 81 mg/dL (74-106); Potassium 3.9 mmol/L (3.5-5.1); Sodium 137 mmol/L (136-145)
[2025-01-16 06:58] LABS: Estimated GFR 175.79 (mL/min/1.73m2)
[2025-01-16 07:51] VITALS: BP 121/92; PULSE 113; RESP 19; TEMP 37; O2SAT 98
[2025-01-16] MEDS: Budesonide/Formoterol 160/4.5 6 GM 60 PUFF INH IH ×2 (07:54→20:04)
[2025-01-16] MEDS: Potassium Chloride 20 MEQ TABCR PO ×2 (08:29→19:53)
[2025-01-16] MEDS: Normal Saline Flush 10 ML SYR IVP ×4 (08:29→19:55)
[2025-01-16] MEDS: Venlafaxine 37.5 MG CAPCR PO (08:29)
[2025-01-16] MEDS: Magnesium Oxide 400 MG TAB PO (08:29)
[2025-01-16] MEDS: Ferrous Gluconate 324 MG TAB PO (08:29)
--- NOTE | 2025-01-16 08:31 | W.PULMPROG ---
Assessment and Plan Assessment and plan (1) Empyema: Status: Acute (2) Streptococcal pneumonia: Status: Acute (3) Atelectasis of left lung: Status: Acute (4) Paroxysmal nocturnal hemoglobinuria: Status: Acute General Date Of Service Date of service: 01/16/25 Time of Service: 07:45 Reason for Consult: Pleural effusion Recommendations: Assessment: 1. Left empyema - Pleural fluid analysis consistent with empyema (LDH > 9000, glucose < 20, culture positive for strep pneum). Currently receiving intrapleural TPA/DNAase 2. Streptococcal pneumonia 3. Dyspnea - due to left pneumonia, left empyema, and left atelectasis - improved 4. PNH - Hb stable 5. Spinal muscular atrophy Recommendations: - continue unasyn for strep pneumonia and empyema. Tentatively plan for ~4 weeks of antibiotics - continue with intrapleural TPA/DNAase instillations (#6/6 this AM). Plan for CT chest this afternoon to assess for any residual loculated pleural fluid - can resume lovenox for DVT ppx this afternoon Discussed with Dr. Leary Subjective Note Note: 44 year old with past medical history of asthma, Type 2 spinal muscular atrophy, chronic weakness of the upper and lower extremities, paroxysmal nocturnal hemoglobinuria - managed by [facility]. She presented to the ED with SOB and left sided chest pain. Prior to presentation to the ED she had been ill 3 weeks prior requiring steroids and abx. She was experiencing coughing, nausea and vomiting. After starting prednisone, she developed bilateral upper and lower extremity swelling as well as abdominal. This was waxing and waning. She notes one episode of choking on food, but felt she cleared this well. Imaging obtained in the ED reveals large left sided pleural effusion. 14 Fr pigtail chest tube placed on 01/10. Pleural fluid analysis consistent withe an empyema. Pleural fluid culture positive for strep pneumoniae. Intrapleural TPA/DNAase initiated 01/13. Have had nearly 5 L of chest tube output since placement. Tolerating intrapleural lytic therapy well. Has some chest discomfort after drainage. Denies significant dyspnea. Has a mild dry cough. ROS: 6 pt ROS negative except as above Exam Narrative Exam Narrative: General: alert, no acute distress Head: normocephalic ENT: no stridor, trachea midline CV: mild tachycardia, regular rhythm Respiratory: no wheezing, no crackles, no rhonchi, no prolonged expiration GI: abd soft, non-tender, non-distended Skin: no rashes, left posterior chest tube in place Extremities: no edema, no digital clubbing Psych: normal affect Objective Last Vital Signs Temp 37.0 C 01/16/25 07:51 Pulse 113 H 01/16/25 07:51 Resp 19 01/16/25 07:51 BP 121/92 H 01/16/25 07:51 Pulse Ox 98 01/16/25 07:51 Laboratory Results - last 24 hr 01/16/25 06:25 WBC 4.65 RBC 2.95 L Hgb 8.9 L Hct 27.6 L MCV 94 MCH 30.2 MCHC 32.2 RDW 15.6 H Plt Count 120 L MPV 8.7 Sodium 137 Potassium 3.9 Chloride 101 Carbon Dioxide 27.6 Anion Gap 8.4 BUN 3 L Creatinine 0.1 L Est GFR (CKD-EPI 2020) 175.79 Glucose 81 Calcium 7.9 L Results Medications Medications: Active Medications Generic Name Dose Route Start Last Admin Trade Name Freq PRN Reason Stop Dose Admin Acetaminophen 650 mg 01/09/25 16:41 Acetaminophen 325 Mg Tab PO Q4H PRN PRN Acidophilus/Pectin 1 cap 01/14/25 19:30 01/15/25 17:59 Lactobacillus Acidophilus Cap PO 1 cap TID PRN PRN Administration Albuterol Sulfate 2.5 mg 01/09/25 16:41 01/12/25 08:56 Albuterol 2.5 Mg/3 Ml Inh Soln Vial UPD 2.5 mg Q2H PRN PRN Administration Albuterol Sulfate 2 puff 01/09/25 16:48 Albuterol Hfa 8 Gm 60 Puff Inh IH Q4H PRN PRN shortness of breath or wheezing Budesonide/Formoterol Fumarate 1 puff 01/09/25 20:00 01/16/25 07:54 Budesonide/Formoterol 160/4.5 6 Gm 60 Puff Inh IH 1 puff BID REBEKAH Administration Alteplase, Recombinant 10 mg/ 0 mg 01/14/25 17:00 01/15/25 17:08 Sodium Chloride 50 ml UD 01/16/25 09:01 10 mg BID@0900,1700 REBEKAH Administration Dornase Jordan 5 mg/ Sterile 0 mg 01/14/25 17:00 01/15/25 17:08 Water 30 ml UD 01/16/25 09:01 5 mg BID@0900,1700 REBEKAH Administration Fentanyl 25 mcg 01/15/25 09:28 01/15/25 17:07 Fentanyl 100 Mcg/2 Ml Vial IVP 25 mcg Q4H PRN PRN Administration Ferrous Gluconate 324 mg 01/11/25 08:30 01/16/25 08:29 Ferrous Gluconate 324 Mg Tab PO 324 mg DAILY REBEKAH Administration Folic Acid 1 mg 01/10/25 20:00 01/15/25 20:12 Folic Acid 1 Mg Tab PO 1 mg HS REBEKAH Administration Ampicillin Sodium/Sulbactam 100 mls @ 200 mls/hr 01/11/25 10:00 01/16/25 04:47 Sodium 3 gm/ Sodium Chloride IVPB Infused Q6H REBEKAH Infusion IV Miscellaneous Supplies 1 each 01/10/25 15:00 Iv Access IV DIRECTED [facility] Ibuprofen 400 mg 01/09/25 16:48 01/15/25 11:39 Ibuprofen 200 Mg Tab PO 400 mg QID PRN PRN Administration fever or pain Lidocaine HCl 20 ml 01/10/25 09:00 Lidocaine 1% Multi-Dose 20 Ml Vial IJ DIRECTED REBEKAH Loratadine 10 mg 01/10/25 20:00 01/15/25 20:12 Loratidine 10 Mg Tab PO 10 mg HS REBEKAH Administration Magnesium Oxide 400 mg 01/13/25 08:30 01/16/25 08:29 Magnesium Oxide 400 Mg Tab PO 400 mg DAILY REBEKAH Administration Ondansetron HCl 4 mg 01/09/25 17:37 01/15/25 17:59 Ondansetron O.D.T. 4 Mg Tabef PO 4 mg Q8H PRN PRN Administration Oxycodone HCl 5 mg 01/10/25 14:59 01/15/25 17:59 Oxycodone 5 Mg Tab PO 5 mg Q4H PRN PRN Administration Pt's Own Iptacopan [ 1 each 01/10/25 20:00 01/16/25 08:30 Fabhalta] 200 Mg PO Not Given Capsule BID REBEKAH Polyethylene Glycol 17 gm 01/09/25 16:35 Polyethylene Glycol 3350 17 Gm Packet PO DAILY PRN PRN Constipation Potassium Chloride 20 meq 01/14/25 20:00 01/16/25 08:29 Potassium Chloride 20 Meq Tabcr PO 20 meq BID REBEKAH Administration Multivitamins 1 tab 01/10/25 20:00 01/15/25 20:12 Multivitamin W/Ca,Fe Tab PO 1 tab HS REBEKAH Administration Sodium Chloride 0 ml 01/09/25 23:29 01/15/25 17:09 Normal Saline Flush 10 Ml Syr IVP 20 ml PRN PRN Administration Sodium Chloride 0 ml 01/10/25 08:30 01/16/25 08:29 Normal Saline Flush 10 Ml Syr IVP 10 ml BID REBEKAH Administration Venlafaxine HCl 37.5 mg 01/10/25 08:30 01/16/25 08:29 Venlafaxine 37.5 Mg Capcr PO 37.5 mg QAM REBEKAH Administration Allergies ciprofloxacin (From Cipro) Allergy (Intermediate, Verified 01/09/25 13:28) Topical Irritation codeine Allergy (Intermediate, Verified 01/09/25 13:28) vomit Labs 01/16/25 06:25 01/16/25 06:25 Labs: 01/10/25 12:14 Pleural - Left Body Fluid Culture - Preliminary Streptococcus pneumoniae 01/10/25 12:14 Pleural - Left Gram Stain - Final 01/10/25 12:14 Pleural - Left Anaerobic Culture - Preliminary Laboratory Tests Range/Units 01/09/25 01/09/25 01/09/25 14:05 15:09 17:13 WBC (4.4-10.8) 10^3/uL RBC (3.93-5.22) 10^6/uL Hgb (11.2-15.7) g/dL Hct (36.0-46.0) % MCV (80-95) fL MCH (27.0-33.0) pg MCHC (32.0-36.0) % RDW (11.7-14.6) % Plt Count (130-400) 10^3/uL MPV (8.0-11.0) fL PT (9.1-11.1) sec 10.8 INR (0.9-1.1) 1.1 APTT (20.6-30.2) sec 21.3 Sodium (136-145) mmol/L Potassium (3.5-5.1) mmol/L Chloride (98-107) mmol/L Carbon Dioxide (21.0-32.0) mmol/L Anion Gap (3-11) mmol/L BUN (7-18) mg/dL Creatinine (0.55-1.02) mg/dL Est GFR (CKD-EPI 2020) (mL/min/1.73m2) Glucose (74-106) mg/dL Calcium (8.5-10.1) mg/dL Ionized Calcium (1.14-1.35) mmol/L Magnesium (1.8-2.4) mg/dL Iron (50-170) ug/dL TIBC (250-450) ug/dL Transferrin % Sat (15-50) % Total Bilirubin (0.2-1.0) mg/dL AST (15-37) U/L ALT (14-59) U/L Alkaline Phosphatase (46-116) U/L Troponin I (<or=51) ng/L 8 8 12 NT-Pro-B Natriuret Pep (<300) pg/mL 570 H Total Protein (6.4-8.2) g/dL Albumin (3.4-5.0) g/dL Procalcitonin ng/mL Fluid Type Fluid Source Fluid Color Fluid Clarity Fluid WBC (0) uL Fld Polynuclear WBCs % % Fluid Mononuclear Cell % Fluid Glucose (See Note) mg/dL Fluid Total Protein g/dL Fluid LDH U/L Ur Strep pneumoniae Ag (Negative) ABO/Rh Blood Type Recheck Antibody Screen Crossmatch Range/Units 01/10/25 01/10/25 01/10/25 06:25 06:45 12:14 WBC (4.4-10.8) 10^3/uL 5.28 RBC (3.93-5.22) 10^6/uL 2.74 L Hgb (11.2-15.7) g/dL 7.9 L Hct (36.0-46.0) % 25.9 L MCV (80-95) fL 95 MCH (27.0-33.0) pg 28.8 MCHC (32.0-36.0) % 30.5 L RDW (11.7-14.6) % 15.9 H Plt Count (130-400) 10^3/uL 163 MPV (8.0-11.0) fL 9.3 PT (9.1-11.1) sec INR (0.9-1.1) APTT (20.6-30.2) sec Sodium (136-145) mmol/L 135 L Potassium (3.5-5.1) mmol/L 2.9 L* Chloride (98-107) mmol/L 97 L Carbon Dioxide (21.0-32.0) mmol/L 26.5 Anion Gap (3-11) mmol/L 11.5 H BUN (7-18) mg/dL 7 Creatinine (0.55-1.02) mg/dL 0.1 L Est GFR (CKD-EPI 2020) (mL/min/1.73m2) 175.79 Glucose (74-106) mg/dL 64 L Calcium (8.5-10.1) mg/dL 8.1 L Ionized Calcium (1.14-1.35) mmol/L Magnesium (1.8-2.4) mg/dL 1.9 Iron (50-170) ug/dL 28 L TIBC (250-450) ug/dL 158 L Transferrin % Sat (15-50) % 18 Total Bilirubin (0.2-1.0) mg/dL AST (15-37) U/L ALT (14-59) U/L Alkaline Phosphatase (46-116) U/L Troponin I (<or=51) ng/L NT-Pro-B Natriuret Pep (<300) pg/mL Total Protein (6.4-8.2) g/dL Albumin (3.4-5.0) g/dL Procalcitonin ng/mL < 0.10 Fluid Type Left Pleural Fluid Source Pleural Fluid Color Yellow Fluid Clarity Purulent Fluid WBC (0) uL [id number] Fld Polynuclear WBCs % % 75 Fluid Mononuclear Cell % 25 Fluid Glucose (See Note) mg/dL <20 Fluid Total Protein g/dL 3.9 Fluid LDH U/L >9000 Ur Strep pneumoniae Ag (Negative) ABO/Rh Blood Type Recheck Antibody Screen Crossmatch Range/Units 01/10/25 01/11/25 01/11/25 20:00 05:57 09:47 WBC (4.4-10.8) 10^3/uL 5.82 RBC (3.93-5.22) 10^6/uL 2.11 L Hgb (11.2-15.7) g/dL 6.3 L* Hct (36.0-46.0) % 20.1 L* MCV (80-95) fL 95 MCH (27.0-33.0) pg 29.9 MCHC (32.0-36.0) % 31.3 L RDW (11.7-14.6) % 15.9 H Plt Count (130-400) 10^3/uL 156 MPV (8.0-11.0) fL 9.0 PT (9.1-11.1) sec INR (0.9-1.1) APTT (20.6-30.2) sec Sodium (136-145) mmol/L 136 Potassium (3.5-5.1) mmol/L 4.8 D Chloride (98-107) mmol/L 102 Carbon Dioxide (21.0-32.0) mmol/L 27.1 Anion Gap (3-11) mmol/L 6.9 BUN (7-18) mg/dL 5 L Creatinine (0.55-1.02) mg/dL 0.1 L Est GFR (CKD-EPI 2020) (mL/min/1.73m2) 175.79 Glucose (74-106) mg/dL 77 Calcium (8.5-10.1) mg/dL 8.3 L Ionized Calcium (1.14-1.35) mmol/L Magnesium (1.8-2.4) mg/dL Iron (50-170) ug/dL TIBC (250-450) ug/dL Transferrin % Sat (15-50) % Total Bilirubin (0.2-1.0) mg/dL 0.9 AST (15-37) U/L 18 ALT (14-59) U/L 39 Alkaline Phosphatase (46-116) U/L 88 Troponin I (<or=51) ng/L NT-Pro-B Natriuret Pep (<300) pg/mL Total Protein (6.4-8.2) g/dL 5.5 L Albumin (3.4-5.0) g/dL 1.5 L Procalcitonin ng/mL Fluid Type Fluid Source Fluid Color Fluid Clarity Fluid WBC (0) uL Fld Polynuclear WBCs % % Fluid Mononuclear Cell % Fluid Glucose (See Note) mg/dL Fluid Total Protein g/dL Fluid LDH U/L Ur Strep pneumoniae Ag (Negative) Positive A ABO/Rh A Positive Blood Type Recheck A Positive Antibody Screen NEGATIVE Crossmatch See Detail Range/Units 01/11/25 01/12/25 01/13/25 22:15 06:30 06:10 WBC (4.4-10.8) 10^3/uL 5.28 5.03 RBC (3.93-5.22) 10^6/uL 2.83 L 2.78 L Hgb (11.2-15.7) g/dL 8.7 L D 8.5 L 8.1 L Hct (36.0-46.0) % 27.2 L 26.1 L 26.1 L MCV (80-95) fL 92 94 MCH (27.0-33.0) pg 30.0 29.1 MCHC (32.0-36.0) % 32.6 31.0 L RDW (11.7-14.6) % 15.8 H 15.4 H Plt Count (130-400) 10^3/uL 124 L 105 L MPV (8.0-11.0) fL 8.7 9.3 PT (9.1-11.1) sec INR (0.9-1.1) APTT (20.6-30.2) sec Sodium (136-145) mmol/L 138 139 Potassium (3.5-5.1) mmol/L 3.8 D 3.5 Chloride (98-107) mmol/L 103 103 Carbon Dioxide (21.0-32.0) mmol/L 27.1 28.0 Anion Gap (3-11) mmol/L 7.9 8.0 BUN (7-18) mg/dL 5 L 6 L Creatinine (0.55-1.02) mg/dL 0.1 L 0.1 L Est GFR (CKD-EPI 2020) (mL/min/1.73m2) 175.79 175.79 Glucose (74-106) mg/dL 77 75 Calcium (8.5-10.1) mg/dL 7.7 L 8.0 L Ionized Calcium (1.14-1.35) mmol/L 1.05 L Magnesium (1.8-2.4) mg/dL 1.6 L Iron (50-170) ug/dL TIBC (250-450) ug/dL Transferrin % Sat (15-50) % Total Bilirubin (0.2-1.0) mg/dL 0.9 0.6 AST (15-37) U/L 12 L 18 ALT (14-59) U/L 30 32 Alkaline Phosphatase (46-116) U/L 79 83 Troponin I (<or=51) ng/L NT-Pro-B Natriuret Pep (<300) pg/mL Total Protein (6.4-8.2) g/dL 5.4 L 5.6 L Albumin (3.4-5.0) g/dL 1.4 L 1.4 L Procalcitonin ng/mL Fluid Type Fluid Source Fluid Color Fluid Clarity Fluid WBC (0) uL Fld Polynuclear WBCs % % Fluid Mononuclear Cell % Fluid Glucose (See Note) mg/dL Fluid Total Protein g/dL Fluid LDH U/L Ur Strep pneumoniae Ag (Negative) ABO/Rh Blood Type Recheck Antibody Screen Crossmatch Range/Units 01/14/25 01/15/25 01/16/25 05:40 06:30 06:25 WBC (4.4-10.8) 10^3/uL 4.96 4.97 4.65 RBC (3.93-5.22) 10^6/uL 2.81 L 2.89 L 2.95 L Hgb (11.2-15.7) g/dL 8.4 L 8.7 L 8.9 L Hct (36.0-46.0) % 26.3 L 27.1 L 27.6 L MCV (80-95) fL 94 94 94 MCH (27.0-33.0) pg 29.9 30.1 30.2 MCHC (32.0-36.0) % 31.9 L 32.1 32.2 RDW (11.7-14.6) % 15.2 H 15.4 H 15.6 H Plt Count (130-400) 10^3/uL 124 L 114 L 120 L MPV (8.0-11.0) fL 9.1 8.8 8.7 PT (9.1-11.1) sec INR (0.9-1.1) APTT (20.6-30.2) sec Sodium (136-145) mmol/L 138 137 137 Potassium (3.5-5.1) mmol/L 3.2 L 4.1 3.9 Chloride (98-107) mmol/L 102 101 101 Carbon Dioxide (21.0-32.0) mmol/L 28.7 30.8 27.6 Anion Gap (3-11) mmol/L 7.3 5.2 8.4 BUN (7-18) mg/dL 5 L 4 L 3 L Creatinine (0.55-1.02) mg/dL 0.2 L 0.2 L 0.1 L Est GFR (CKD-EPI 2020) (mL/min/1.73m2) 148.75 148.75 175.79 Glucose (74-106) mg/dL 79 76 81 Calcium (8.5-10.1) mg/dL 8.0 L 8.0 L 7.9 L Ionized Calcium (1.14-1.35) mmol/L Magnesium (1.8-2.4) mg/dL Iron (50-170) ug/dL TIBC (250-450) ug/dL Transferrin % Sat (15-50) % Total Bilirubin (0.2-1.0) mg/dL 0.7 AST (15-37) U/L 17 ALT (14-59) U/L 30 Alkaline Phosphatase (46-116) U/L 83 Troponin I (<or=51) ng/L NT-Pro-B Natriuret Pep (<300) pg/mL Total Protein (6.4-8.2) g/dL 5.4 L Albumin (3.4-5.0) g/dL 1.4 L Procalcitonin ng/mL Fluid Type Fluid Source Fluid Color Fluid Clarity Fluid WBC (0) uL Fld Polynuclear WBCs % % Fluid Mononuclear Cell % Fluid Glucose (See Note) mg/dL Fluid Total Protein g/dL Fluid LDH U/L Ur Strep pneumoniae Ag (Negative) ABO/Rh Blood Type Recheck Antibody Screen Crossmatch Imaging Chest x-ray: report reviewed and image reviewed
[2025-01-16] MEDS: fentaNYL 100 MCG/2 ML VIAL 25 MCG IVP (09:00)
[2025-01-16] MEDS: DORNASE ALFA UD (09:02)
[2025-01-16] MEDS: WATER FOR INJECTION UD (09:02)
[2025-01-16] MEDS: STERILE UD (09:02)
[2025-01-16] MEDS: ALTEPLASE UD (09:03)
[2025-01-16] MEDS: SODIUM CHLORIDE UD (09:03)
--- NOTE | 2025-01-16 09:47 | PDOC.CMPRO ---
Date of service: 01/16/25 Time of Service: 17:11 Care Management Progress Note Progress Note Text Progress Note Text: Thao was sitting up in bed and visiting with Jerman and other family. Per report, she will have a CT today to assess for remaining fluid. Per report, anticipate transfer to [facility] thoracic surgery pending bed avaiablility. Per RN, Jerman is very attentive to Thao and her needs. CM will continue to follow. Discharge Potential Discharge Needs: PCP F/U Appt and Surgical F/U Appt Anticipated Barriers to Discharge: None Identified Patient/Family Education Needs: Review discharge instructions, discuss Ask Me Three Plan: Anticipate Thao will be discharged home once medically ready vs transfer to a tertiary care facility. If she is d/c'd with chest tube, it is recommended she have new HH RN. It is recommended she follow up with her community providers, pulmonology, and discharge plan of care. She will transport via private vehicle by her family. CM will follow. Social Determinants of Health Screening Social Determinants of health last assessed in clinic: 01/16/25 Will the Patient Participate in the Screening?: Unable to obtain Do you worry about having a steady place to live?: choose not to answer Problems where you live: no known problems In the past 12 months, have you had to go without electric, gas, oil or water in your home?: choose not to answer 1. Within the past 12 months, we worried whether our food would run out before we got money to buy more.: Never true 2. Within the past 12 months, the food we bought just didn't last and we didn't have money to get more.: Never true Has lack of transportation kept you from medical appointments or from doing things needed for daily living?: choose not to answer Has anyone in your life made you feel unsafe or unsupported?: choose not to answer How hard is it for you to pay for the very basics like food, housing, medical care, and heating? Would you say it is:: Not hard at all Do you want help finding or keeping work or a job?: I do not need or want help If for any reason you need help with day-to-day activities such as bathing, preparing meals, shopping, managing finances, etc., do you get the help you need?: I don?t need any help How often do you feel lonely or isolated from those around you?: Never Do you speak a language other than Spanish at home?: No Does the patient want assistance with any of the above?: No Health Related Social Needs Health related social needs: material hardship(utilities) (Z59.12)
[2025-01-16] MEDS: oxyCODONE 5 MG TAB PO (09:58)
[2025-01-16] MEDS: Ondansetron O.D.T. 4 MG TABEF PO ×2 (09:58→21:54)
[2025-01-16 11:24] VITALS: BP 121/90; PULSE 116; RESP 18; TEMP 36.3; O2SAT 95
--- NOTE | 2025-01-16 14:20 | DI.CT_ITS ---
Exam(s) CT CHEST WO EXAM: CT CHEST WO CLINICAL HISTORY: Empyema, s/p intrapleural lytic therapy. TECHNIQUE: Imaging protocol: Axial computed tomography images were obtained and coronal and sagittal reformatted images were created and reviewed. Lung Computer Aided Detection (CAD) was utilized. COMPARISON: CT CT CHEST PE CTA from 01/09/2025 FINDINGS: Tracheobronchial tree: Patent where visualized. No bronchiectasis is present. Pulmonary parenchyma: There is a very small ground-glass infiltrate in the right lower lobe. There is a small right pleural effusion and subjacent atelectasis. There are areas of consolidation involving the lingula and left upper and lower lobes. There are air bronchograms seen in the infiltrates in the left lingula and left lower lobe. There is a small left pleural effusion in the lung base. The chest tube is in the left lung base. There is a left basilar pneumothorax. There is an loculated air-fluid collection along the posterior superior left hemithorax. It appears separate from the pneumothorax in the left lung base. It measures 7.8 transverse by 4.1 AP by 7.7 craniocaudad cm. This may represent a loculated hydropneumothorax or empyema. The only discernible wall is seen anteriorly inferiorly and appears thin. Mediastinum and Paige: There is loss of volume in the left hemithorax with a leftward shift of the mediastinum. The esophagus is unremarkable. Thyroid gland: Unremarkable. Pleura: There is no evidence of a right pneumothorax. Heart: The heart is not dilated. Mild coronary artery calcification is present. There is a very small pericardial effusion. Aorta: Thoracic aorta non-dilated. Upper abdomen: Status post cholecystectomy. Nonobstructing left renal calculus. Lymph nodes: Within normal limits. Tubes, Catheters, and Lines: There is a left chest tube in the base of the left hemithorax. Soft tissues: There is diffuse marked fatty atrophy of the chest wall and visualized abdominal musculature. Bones:Within normal limits for the patient's age. The patient has spinal rods extending the length of the thoracic spine and into the upper lumbar spine. There are stable sclerotic foci seen in the ribs and a thoracic vertebra. IMPRESSION: 1. There are areas of consolidation involving the lingula, left upper and left lower lobes concerning for pneumonia. 2. Air-fluid collection in the posterior superior aspect of the left hemithorax. Loculated hydropneumothorax versus empyema. 3. Small bilateral pleural effusions. 4. Left basilar pneumothorax. 5. Diffuse marked muscular fatty atrophy of the chest and visualized abdominal wall. 6. Left chest tube in the base of the left hemithorax. RADIATION DOSE DELIVERED: 593.97mGy.cm Total DLP 593.97mGy.cm Total DLP DATA REPOSITORY: All CT scans at this facility are submitted to the National Radiology Data Registry (NRDR) Dose Index Registry (DIR) with the [employer] ([employer]). RADIATION OPTIMIZATION: All CT scans at this facility use at least one of these dose optimization techniques: automated exposure control; mA and/or kV adjustment per patient size (includes targeted exams where dose is matched to clinical indication); or iterative reconstruction.
[2025-01-16 15:18] VITALS: BP 139/82; PULSE 119; RESP 18; TEMP 37; O2SAT 97
--- NOTE | 2025-01-16 16:44 | PGE_ITS ---
Date of Service Date of service: 01/16/25 Time of Service: 16:44 Assessment and Plan Assessment and plan (1) Empyema: Status: Acute Assessment and plan: -Large symptomatic effusion, started in setting of respiratory infection 3 weeks ago and 2 weeks of steroids. -Now draining fluid c/w empyema. -cultures growin Strep. pneumo; as per Pulm now on Unasyn -Appreciate pulmonary guidance; Patient given 6 doses of intrapleural lytics good chest tube output - However, chest CT performed on the afternoon of 11/16/2024 showed trapped lung and thickening of the surrounding the lung tissue -The case was discussed with the [facility] [place] who accepted patient for transfer within the next 24 to 48 hours based on bed availability (2) Hemolytic anemia: Status: Acute Assessment and plan: -History of iron deficiency and hemolysis due to paroxysmal nocturnal hemoglob inuria. -Current Hb 7.9 on admission, was 12.9 in September. This is normal during illness and is likely contributing to symptoms -continue home Iptacopan -Hb 6.3 AM 01/11, recieved 1U PRBCs, Hb up to 8.5 as of AM 01/12 -f/u AM Hb and transfuse if <7 (3) Type II spinal muscular atrophy: Assessment and plan: -She is wheelchair dependant, uses device for transfer, will requires additional assistance (4) Asthma: Assessment and plan: -without acute exacerbation -continue home symbicort (5) Anxiety: Assessment and plan: -controlled at baseline, continue venlafaxine (6) DVT prophylaxis: Status: Acute Assessment and plan: -Now s/p thoracentesis/drain, she has risk factors of decreased mobility and infection -will treat with enoxaparin, monitor plts Subjective Subjective Interval history since last seen: Patient is aware of the plan to transfer her to [facility] thoracic surgery department once bed is available. Exam Narrative Exam Narrative: Well-appearing female laying in bed in no acute distress, ANO x 4, heart regular rhythm, lungs with improving but still somewhat diminished breath sounds throughout left lung failure particularly in 1/3, abdomen soft, nontender, nondistended, chest tube and placed in the left without surrounding erythema or drainage Objective Last Vital Signs Temp 98.6 F 01/16/25 15:18 Pulse 119 H 01/16/25 15:18 Resp 18 01/16/25 15:18 BP 139/82 01/16/25 15:18 Pulse Ox 97 01/16/25 15:18 Laboratory Results - last 24 hr 01/16/25 06:25 WBC 4.65 RBC 2.95 L Hgb 8.9 L Hct 27.6 L MCV 94 MCH 30.2 MCHC 32.2 RDW 15.6 H Plt Count 120 L MPV 8.7 Sodium 137 Potassium 3.9 Chloride 101 Carbon Dioxide 27.6 Anion Gap 8.4 BUN 3 L Creatinine 0.1 L Est GFR (CKD-EPI 2020) 175.79 Glucose 81 Calcium 7.9 L Time Spent with Patient Time Spent with Patient: >50 minutes Time was spent: preparing to see the patient(eg.review tests), obtaining and/or reviewing separately otained hiistory, ordering medications,tests, procedures, referring, communicating with other health director career services, indepentently interpreting results, counseling the patient and care coordination
[2025-01-16] MEDS: Prenatal Multivitamin w/CA,FE TAB 1 TAB PO (19:53)
[2025-01-16] MEDS: Loratidine 10 MG TAB PO (19:53)
[2025-01-16] MEDS: Folic Acid 1 MG TAB PO (19:53)
[2025-01-16 20:09] VITALS: BP 127/94; PULSE 123; RESP 15; TEMP 36.5; O2SAT 96
[2025-01-16 22:42] VITALS: BP 128/83; PULSE 111; RESP 15; TEMP 36.7; O2SAT 97
[2025-01-17] MEDS: AMPICILLIN/SULBACTAM 3 GM in Normal Saline 100 ML IVPB ×3 (04:11→16:49)
[2025-01-17 04:27] VITALS: BP 125/85; PULSE 106; RESP 15; TEMP 36; O2SAT 97
--- NOTE | 2025-01-17 07:10 | W.PULMPROG ---
Assessment and Plan Assessment and plan (1) Empyema: Status: Acute (2) Streptococcal pneumonia: Status: Acute (3) Atelectasis of left lung: Status: Acute (4) Paroxysmal nocturnal hemoglobinuria: Status: Acute General Date Of Service Date of service: 01/17/25 Time of Service: 07:10 Reason for Consult: Pleural effusion Recommendations: Assessment: 1. Left empyema - Pleural fluid analysis consistent with empyema (LDH > 9000, glucose < 20, culture positive for strep pneum). Completed 6 rounds of intrapleural TPA/DNAase. Follow up CT chest showed good evacuation of the pleural fluid, but was concerning for lung entrapment. CTS reviewed her imaging - she will be transferring to [facility] [place] for decortication 2. Streptococcal pneumonia 3. Dyspnea - due to left pneumonia, left empyema, and left atelectasis 4. PNH - Hb stable 5. Spinal muscular atrophy Recommendations: - continue unasyn for strep pneumonia and empyema - transfer pending to [facility] [place] for decortication Discussed with Dr. Chacon Subjective Note Note: 44 year old with past medical history of asthma, Type 2 spinal muscular atrophy, chronic weakness of the upper and lower extremities, paroxysmal nocturnal hemoglobinuria - managed by [facility]. She presented to the ED with SOB and left sided chest pain. Prior to presentation to the ED she had been ill 3 weeks prior requiring steroids and abx. She was experiencing coughing, nausea and vomiting. After starting prednisone, she developed bilateral upper and lower extremity swelling as well as abdominal. This was waxing and waning. She notes one episode of choking on food, but felt she cleared this well. Imaging obtained in the ED reveals large left sided pleural effusion. 14 Fr pigtail chest tube placed on 01/10. Pleural fluid analysis consistent withe an empyema. Pleural fluid culture positive for strep pneumoniae. Intrapleural TPA/DNAase initiated 01/13. Follow up CT chest concerning for pleural rind and lung entrapment. Chest tube output has slowed over the past day. Denied chest pain this AM. Denied dyspnea. On room air. ROS: 6 pt ROS negative except as above Exam Narrative Exam Narrative: General: alert, no acute distress Head: normocephalic ENT: no stridor, trachea midline CV: mild tachycardia, regular rhythm Respiratory: no wheezing, no crackles, no rhonchi, no prolonged expiration GI: abd soft, non-tender, non-distended Skin: no rashes, left posterior chest tube in place Extremities: no edema, no digital clubbing Psych: normal affect Objective Last Vital Signs Temp 36 C L 01/17/25 04:27 Pulse 106 H 01/17/25 04:27 Resp 15 01/17/25 04:27 BP 125/85 01/17/25 04:27 Pulse Ox 97 01/17/25 04:27 Results Medications Medications: Active Medications Generic Name Dose Route Start Last Admin Trade Name Freq PRN Reason Stop Dose Admin Acetaminophen 650 mg 01/09/25 16:41 Acetaminophen 325 Mg Tab PO Q4H PRN PRN Acidophilus/Pectin 1 cap 01/14/25 19:30 01/15/25 17:59 Lactobacillus Acidophilus Cap PO 1 cap TID PRN PRN Administration Albuterol Sulfate 2.5 mg 01/09/25 16:41 01/12/25 08:56 Albuterol 2.5 Mg/3 Ml Inh Soln Vial UPD 2.5 mg Q2H PRN PRN Administration Albuterol Sulfate 2 puff 01/09/25 16:48 Albuterol Hfa 8 Gm 60 Puff Inh IH Q4H PRN PRN shortness of breath or wheezing Budesonide/Formoterol Fumarate 1 puff 01/09/25 20:00 01/16/25 20:04 Budesonide/Formoterol 160/4.5 6 Gm 60 Puff Inh IH 1 puff BID REBEKAH Administration Fentanyl 25 mcg 01/15/25 09:28 01/16/25 09:00 Fentanyl 100 Mcg/2 Ml Vial IVP 25 mcg Q4H PRN PRN Administration Ferrous Gluconate 324 mg 01/11/25 08:30 01/16/25 08:29 Ferrous Gluconate 324 Mg Tab PO 324 mg DAILY REBEKAH Administration Folic Acid 1 mg 01/10/25 20:00 01/16/25 19:53 Folic Acid 1 Mg Tab PO 1 mg HS REBEKAH Administration Ampicillin Sodium/Sulbactam 100 mls @ 200 mls/hr 01/11/25 10:00 01/17/25 04:55 Sodium 3 gm/ Sodium Chloride IVPB Infused Q6H REBEKAH Infusion IV Miscellaneous Supplies 1 each 01/10/25 15:00 Iv Access IV DIRECTED REBEKAH Ibuprofen 400 mg 01/09/25 16:48 01/15/25 11:39 Ibuprofen 200 Mg Tab PO 400 mg QID PRN PRN Administration fever or pain Lidocaine HCl 20 ml 01/10/25 09:00 Lidocaine 1% Multi-Dose 20 Ml Vial IJ DIRECTED REBEKAH Loratadine 10 mg 01/10/25 20:00 01/16/25 19:53 Loratidine 10 Mg Tab PO 10 mg HS REBEKAH Administration Magnesium Oxide 400 mg 01/13/25 08:30 01/16/25 08:29 Magnesium Oxide 400 Mg Tab PO 400 mg DAILY REBEKAH Administration Ondansetron HCl 4 mg 01/09/25 17:37 01/16/25 21:54 Ondansetron O.D.T. 4 Mg Tabef PO 4 mg Q8H PRN PRN Administration Oxycodone HCl 5 mg 01/10/25 14:59 01/16/25 09:58 Oxycodone 5 Mg Tab PO 5 mg Q4H PRN PRN Administration Pt's Own Iptacopan [ 1 each 01/10/25 20:00 01/16/25 19:54 Fabhalta] 200 Mg PO Not Given Capsule BID REBEKAH Polyethylene Glycol 17 gm 01/09/25 16:35 Polyethylene Glycol 3350 17 Gm Packet PO DAILY PRN PRN Constipation Potassium Chloride 20 meq 01/14/25 20:00 01/16/25 19:53 Potassium Chloride 20 Meq Tabcr PO 20 meq BID REBEKAH Administration Multivitamins 1 tab 01/10/25 20:00 01/16/25 19:53 Multivitamin W/Ca,Fe Tab PO 1 tab HS REBEKAH Administration Sodium Chloride 0 ml 01/09/25 23:29 01/16/25 15:46 Normal Saline Flush 10 Ml Syr IVP 10 ml PRN PRN Administration Sodium Chloride 0 ml 01/10/25 08:30 01/16/25 19:55 Normal Saline Flush 10 Ml Syr IVP 10 ml BID REBEKAH Administration Venlafaxine HCl 37.5 mg 01/10/25 08:30 01/16/25 08:29 Venlafaxine 37.5 Mg Capcr PO 37.5 mg QAM REBEKAH Administration Allergies ciprofloxacin (From Cipro) Allergy (Intermediate, Verified 01/09/25 13:28) Topical Irritation codeine Allergy (Intermediate, Verified 01/09/25 13:28) vomit Labs 01/16/25 06:25 01/16/25 06:25 Labs: 01/10/25 12:14 Pleural - Left Body Fluid Culture - Final Streptococcus pneumoniae 01/10/25 12:14 Pleural - Left Gram Stain - Final 01/10/25 12:14 Pleural - Left Anaerobic Culture - Final Laboratory Tests Range/Units 01/09/25 01/09/25 01/09/25 14:05 15:09 17:13 WBC (4.4-10.8) 10^3/uL RBC (3.93-5.22) 10^6/uL Hgb (11.2-15.7) g/dL Hct (36.0-46.0) % MCV (80-95) fL MCH (27.0-33.0) pg MCHC (32.0-36.0) % RDW (11.7-14.6) % Plt Count (130-400) 10^3/uL MPV (8.0-11.0) fL PT (9.1-11.1) sec 10.8 INR (0.9-1.1) 1.1 APTT (20.6-30.2) sec 21.3 Sodium (136-145) mmol/L Potassium (3.5-5.1) mmol/L Chloride (98-107) mmol/L Carbon Dioxide (21.0-32.0) mmol/L Anion Gap (3-11) mmol/L BUN (7-18) mg/dL Creatinine (0.55-1.02) mg/dL Est GFR (CKD-EPI 2020) (mL/min/1.73m2) Glucose (74-106) mg/dL Calcium (8.5-10.1) mg/dL Ionized Calcium (1.14-1.35) mmol/L Magnesium (1.8-2.4) mg/dL Iron (50-170) ug/dL TIBC (250-450) ug/dL Transferrin % Sat (15-50) % Total Bilirubin (0.2-1.0) mg/dL AST (15-37) U/L ALT (14-59) U/L Alkaline Phosphatase (46-116) U/L Troponin I (<or=51) ng/L 8 8 12 NT-Pro-B Natriuret Pep (<300) pg/mL 570 H Total Protein (6.4-8.2) g/dL Albumin (3.4-5.0) g/dL Procalcitonin ng/mL Fluid Type Fluid Source Fluid Color Fluid Clarity Fluid WBC (0) uL Fld Polynuclear WBCs % % Fluid Mononuclear Cell % Fluid Glucose (See Note) mg/dL Fluid Total Protein g/dL Fluid LDH U/L Ur Strep pneumoniae Ag (Negative) ABO/Rh Blood Type Recheck Antibody Screen Crossmatch Range/Units 01/10/25 01/10/25 01/10/25 06:25 06:45 12:14 WBC (4.4-10.8) 10^3/uL 5.28 RBC (3.93-5.22) 10^6/uL 2.74 L Hgb (11.2-15.7) g/dL 7.9 L Hct (36.0-46.0) % 25.9 L MCV (80-95) fL 95 MCH (27.0-33.0) pg 28.8 MCHC (32.0-36.0) % 30.5 L RDW (11.7-14.6) % 15.9 H Plt Count (130-400) 10^3/uL 163 MPV (8.0-11.0) fL 9.3 PT (9.1-11.1) sec INR (0.9-1.1) APTT (20.6-30.2) sec Sodium (136-145) mmol/L 135 L Potassium (3.5-5.1) mmol/L 2.9 L* Chloride (98-107) mmol/L 97 L Carbon Dioxide (21.0-32.0) mmol/L 26.5 Anion Gap (3-11) mmol/L 11.5 H BUN (7-18) mg/dL 7 Creatinine (0.55-1.02) mg/dL 0.1 L Est GFR (CKD-EPI 2020) (mL/min/1.73m2) 175.79 Glucose (74-106) mg/dL 64 L Calcium (8.5-10.1) mg/dL 8.1 L Ionized Calcium (1.14-1.35) mmol/L Magnesium (1.8-2.4) mg/dL 1.9 Iron (50-170) ug/dL 28 L TIBC (250-450) ug/dL 158 L Transferrin % Sat (15-50) % 18 Total Bilirubin (0.2-1.0) mg/dL AST (15-37) U/L ALT (14-59) U/L Alkaline Phosphatase (46-116) U/L Troponin I (<or=51) ng/L NT-Pro-B Natriuret Pep (<300) pg/mL Total Protein (6.4-8.2) g/dL Albumin (3.4-5.0) g/dL Procalcitonin ng/mL < 0.10 Fluid Type Left Pleural Fluid Source Pleural Fluid Color Yellow Fluid Clarity Purulent Fluid WBC (0) uL [id number] Fld Polynuclear WBCs % % 75 Fluid Mononuclear Cell % 25 Fluid Glucose (See Note) mg/dL <20 Fluid Total Protein g/dL 3.9 Fluid LDH U/L >9000 Ur Strep pneumoniae Ag (Negative) ABO/Rh Blood Type Recheck Antibody Screen Crossmatch Range/Units 01/10/25 01/11/25 01/11/25 20:00 05:57 09:47 WBC (4.4-10.8) 10^3/uL 5.82 RBC (3.93-5.22) 10^6/uL 2.11 L Hgb (11.2-15.7) g/dL 6.3 L* Hct (36.0-46.0) % 20.1 L* MCV (80-95) fL 95 MCH (27.0-33.0) pg 29.9 MCHC (32.0-36.0) % 31.3 L RDW (11.7-14.6) % 15.9 H Plt Count (130-400) 10^3/uL 156 MPV (8.0-11.0) fL 9.0 PT (9.1-11.1) sec INR (0.9-1.1) APTT (20.6-30.2) sec Sodium (136-145) mmol/L 136 Potassium (3.5-5.1) mmol/L 4.8 D Chloride (98-107) mmol/L 102 Carbon Dioxide (21.0-32.0) mmol/L 27.1 Anion Gap (3-11) mmol/L 6.9 BUN (7-18) mg/dL 5 L Creatinine (0.55-1.02) mg/dL 0.1 L Est GFR (CKD-EPI 2020) (mL/min/1.73m2) 175.79 Glucose (74-106) mg/dL 77 Calcium (8.5-10.1) mg/dL 8.3 L Ionized Calcium (1.14-1.35) mmol/L Magnesium (1.8-2.4) mg/dL Iron (50-170) ug/dL TIBC (250-450) ug/dL Transferrin % Sat (15-50) % Total Bilirubin (0.2-1.0) mg/dL 0.9 AST (15-37) U/L 18 ALT (14-59) U/L 39 Alkaline Phosphatase (46-116) U/L 88 Troponin I (<or=51) ng/L NT-Pro-B Natriuret Pep (<300) pg/mL Total Protein (6.4-8.2) g/dL 5.5 L Albumin (3.4-5.0) g/dL 1.5 L Procalcitonin ng/mL Fluid Type Fluid Source Fluid Color Fluid Clarity Fluid WBC (0) uL Fld Polynuclear WBCs % % Fluid Mononuclear Cell % Fluid Glucose (See Note) mg/dL Fluid Total Protein g/dL Fluid LDH U/L Ur Strep pneumoniae Ag (Negative) Positive A ABO/Rh A Positive Blood Type Recheck A Positive Antibody Screen NEGATIVE Crossmatch See Detail Range/Units 01/11/25 01/12/25 01/13/25 22:15 06:30 06:10 WBC (4.4-10.8) 10^3/uL 5.28 5.03 RBC (3.93-5.22) 10^6/uL 2.83 L 2.78 L Hgb (11.2-15.7) g/dL 8.7 L D 8.5 L 8.1 L Hct (36.0-46.0) % 27.2 L 26.1 L 26.1 L MCV (80-95) fL 92 94 MCH (27.0-33.0) pg 30.0 29.1 MCHC (32.0-36.0) % 32.6 31.0 L RDW (11.7-14.6) % 15.8 H 15.4 H Plt Count (130-400) 10^3/uL 124 L 105 L MPV (8.0-11.0) fL 8.7 9.3 PT (9.1-11.1) sec INR (0.9-1.1) APTT (20.6-30.2) sec Sodium (136-145) mmol/L 138 139 Potassium (3.5-5.1) mmol/L 3.8 D 3.5 Chloride (98-107) mmol/L 103 103 Carbon Dioxide (21.0-32.0) mmol/L 27.1 28.0 Anion Gap (3-11) mmol/L 7.9 8.0 BUN (7-18) mg/dL 5 L 6 L Creatinine (0.55-1.02) mg/dL 0.1 L 0.1 L Est GFR (CKD-EPI 2020) (mL/min/1.73m2) 175.79 175.79 Glucose (74-106) mg/dL 77 75 Calcium (8.5-10.1) mg/dL 7.7 L 8.0 L Ionized Calcium (1.14-1.35) mmol/L 1.05 L Magnesium (1.8-2.4) mg/dL 1.6 L Iron (50-170) ug/dL TIBC (250-450) ug/dL Transferrin % Sat (15-50) % Total Bilirubin (0.2-1.0) mg/dL 0.9 0.6 AST (15-37) U/L 12 L 18 ALT (14-59) U/L 30 32 Alkaline Phosphatase (46-116) U/L 79 83 Troponin I (<or=51) ng/L NT-Pro-B Natriuret Pep (<300) pg/mL Total Protein (6.4-8.2) g/dL 5.4 L 5.6 L Albumin (3.4-5.0) g/dL 1.4 L 1.4 L Procalcitonin ng/mL Fluid Type Fluid Source Fluid Color Fluid Clarity Fluid WBC (0) uL Fld Polynuclear WBCs % % Fluid Mononuclear Cell % Fluid Glucose (See Note) mg/dL Fluid Total Protein g/dL Fluid LDH U/L Ur Strep pneumoniae Ag (Negative) ABO/Rh Blood Type Recheck Antibody Screen Crossmatch Range/Units 01/14/25 01/15/25 01/16/25 05:40 06:30 06:25 WBC (4.4-10.8) 10^3/uL 4.96 4.97 4.65 RBC (3.93-5.22) 10^6/uL 2.81 L 2.89 L 2.95 L Hgb (11.2-15.7) g/dL 8.4 L 8.7 L 8.9 L Hct (36.0-46.0) % 26.3 L 27.1 L 27.6 L MCV (80-95) fL 94 94 94 MCH (27.0-33.0) pg 29.9 30.1 30.2 MCHC (32.0-36.0) % 31.9 L 32.1 32.2 RDW (11.7-14.6) % 15.2 H 15.4 H 15.6 H Plt Count (130-400) 10^3/uL 124 L 114 L 120 L MPV (8.0-11.0) fL 9.1 8.8 8.7 PT (9.1-11.1) sec INR (0.9-1.1) APTT (20.6-30.2) sec Sodium (136-145) mmol/L 138 137 137 Potassium (3.5-5.1) mmol/L 3.2 L 4.1 3.9 Chloride (98-107) mmol/L 102 101 101 Carbon Dioxide (21.0-32.0) mmol/L 28.7 30.8 27.6 Anion Gap (3-11) mmol/L 7.3 5.2 8.4 BUN (7-18) mg/dL 5 L 4 L 3 L Creatinine (0.55-1.02) mg/dL 0.2 L 0.2 L 0.1 L Est GFR (CKD-EPI 2020) (mL/min/1.73m2) 148.75 148.75 175.79 Glucose (74-106) mg/dL 79 76 81 Calcium (8.5-10.1) mg/dL 8.0 L 8.0 L 7.9 L Ionized Calcium (1.14-1.35) mmol/L Magnesium (1.8-2.4) mg/dL Iron (50-170) ug/dL TIBC (250-450) ug/dL Transferrin % Sat (15-50) % Total Bilirubin (0.2-1.0) mg/dL 0.7 AST (15-37) U/L 17 ALT (14-59) U/L 30 Alkaline Phosphatase (46-116) U/L 83 Troponin I (<or=51) ng/L NT-Pro-B Natriuret Pep (<300) pg/mL Total Protein (6.4-8.2) g/dL 5.4 L Albumin (3.4-5.0) g/dL 1.4 L Procalcitonin ng/mL Fluid Type Fluid Source Fluid Color Fluid Clarity Fluid WBC (0) uL Fld Polynuclear WBCs % % Fluid Mononuclear Cell % Fluid Glucose (See Note) mg/dL Fluid Total Protein g/dL Fluid LDH U/L Ur Strep pneumoniae Ag (Negative) ABO/Rh Blood Type Recheck Antibody Screen Crossmatch Imaging CT scan - chest: report reviewed and image reviewed
[2025-01-17 07:43] VITALS: BP 110/80; PULSE 106; RESP 16; TEMP 36.8; O2SAT 98
[2025-01-17] MEDS: Budesonide/Formoterol 160/4.5 6 GM 60 PUFF INH IH ×2 (07:53→19:56)
[2025-01-17] MEDS: Potassium Chloride 20 MEQ TABCR PO ×2 (08:21→20:26)
[2025-01-17] MEDS: Magnesium Oxide 400 MG TAB PO (08:22)
[2025-01-17] MEDS: Venlafaxine 37.5 MG CAPCR PO (08:22)
[2025-01-17] MEDS: Normal Saline Flush 10 ML SYR IVP ×2 (08:22→20:27)
[2025-01-17] MEDS: Ferrous Gluconate 324 MG TAB PO (08:22)
--- NOTE | 2025-01-17 09:06 | W.PM.DS.N ---
Date of service: 01/17/25 Time of Service: 08:00 DS: Diagnosis Discharge Diagnosis (1) Empyema: Status: Acute Asessment and Plan: Large symptomatic effusion on the left, with respiratory infection 3 weeks prior to arrival, completed 2 weeks of outpatient steroids. Note patient is on iptacopan, complement inhibitor, increasing likelihood of invasive disease with encapsulated species. January 10 chest tube placement on the left Pleural fluid culture positive for S pneumo, with LDH > 9000 and glucose < 20 6 rounds of pleural lysis January [address] showing likely entrapment VTE chemoprophylaxis restarted January 17 morning Transfer to [facility] [place] [place] likely decortication is pending (2) Streptococcal pneumonia: Status: Acute Asessment and Plan: January 10 pleural fluid culture positive for S pneumo Unasyn started January 11, intent to continue for 4 week course (3) Atelectasis of left lung: Status: Acute Asessment and Plan: Secondary to loculated fluid collection No fevers since arrival (4) Hemolytic anemia: Status: Acute Asessment and Plan: Diagnosed with paroxysmal nocturnal hemoglobinuria during iron deficiency workup Treated with iptacopan (brand name Fabhalta) complement inhibitor January 11 PRBC 1u transfused for hemoglobin 6.3 Since then, hemoglobin in the 8's (5) Type II spinal muscular atrophy: Asessment and Plan: Patient is wheelchair-dependent and requires transfer device and assistance (6) Asthma: Asessment and Plan: Continue home budesonide-formoterol 1 puff nightly (7) Anxiety: Asessment and Plan: Continue home venlafaxine 37.5 daily Discharge Plan Disposition Patient Disposition: Transfer-Acute Inpatient Care Specific Acute In Facility: [facility] Condition: Poor Discharge Details Reason For Visit: Pleural Effusion Admit Date/Time: 01/09/25 16:35 Admit Provider: López Brewer Attending Provider: López Brewer Primary Care Provider: Aruna Calix [facility] Course Hospital Course: Thao Vargas is a 44 year old woman presenting January 09 with shortness of breath and chest pressure, found to have empyema on the left, with pleural fluid positive for S. pneumoniae. She is immunocompromised due to complement inhibitor treatment for paroxysmal nocturnal hemoglobinuria, and had respiratory illness treated with steroids 3 weeks prior to arrival. She had chest tube placed January 10. She completed 6 rounds of intrapleural TPA/DNAase. She has shown little improvement. January [address] is concerning for entrapment loculated fluid and air in the posterior superior left hemithorax. She is on unasyn. At this time she is being transferred to [facility] for cardiothoracic care and likely decortication. Home Meds and New Rx's Prescriptions: Continued Fabhalta 200 mg capsule 200 mg PO BID Rx Instructions: 45 and 1944 venlafaxine 37.5 mg capsule,extended release 24hr 37.5 mg PO QAM Patient Comments: TAKE 1 CAPSULE BY MOUTH EVERY DAY albuterol sulfate 2.5 mg /3 mL (0.083 %) solution for nebulization 2.5 mg inhalation Q6H PRN (Reason: shortness of breath or wheezing) Patient Comments: USE 3 ML VIA NEBULIZER EVERY 4 HOURS NEEDED albuterol sulfate 90 mcg/actuation HFA aerosol inhaler 2 puff INHALATION Q4H PRN (Reason: shortness of breath or wheezing) Patient Comments: INHALE 2 PUFFS BY MOUTH EVERY 4 TO 6 HOURS budesonide-formoterol 160-4.5 mcg/actuation HFA aerosol inhaler 1 puff INHALATION PNV no.95-ferrous fumarate-FA [] 28 mg iron- 800 mcg tablet 1 tab PO DAILY folic acid 1 mg tablet 1,000 mcg PO DAILY loratadine [Claritin] 10 mg tablet 10 mg PO DAILY coQ10 (ubiquinol) [Qunol Román CoQ10] 100 mg capsule 100 mg PO DAILY Discontinued ibuprofen [Advil] 200 mg tablet 400 mg PO TID-QID PRN (Reason: fever or pain) acetaminophen 325 mg capsule 650 mg PO Q6H PRN (Reason: fever or pain) Discharge Instructions Activity:: Activity as Tolerated Equipment/Supplies:: No Equipment Needed Diet:: As Tolerated DS: Summary Time Spent with Patient providing and/or coordinating discharge services: Greater than 30 minutes Status at Discharge Functional status at discharge: wheelchair bound Overall status at discharge: patient is not back to baseline Mental Status: mental status grossly normal Speech and Movement: speech and movement normal Mood: congruent mood Affect: normal affect Quality:SDOH Health Related Social Needs: Health related social needs material hardship Exam Narrative Exam Narrative: General: This is a pleasant woman in no acute distress HEENT: normocephalic, atraumatic CV: RRR Resp: chest tube in place on lower left chest wall, diminished bilateral sounds throughout left lung Abdomen: soft, nontender MSK: voluntary motion x4 Neuro: Awake, alert, no focal deficits Psych Mental Status: mental status grossly normal Speech and Movement: speech and movement normal Mood: congruent mood Affect: normal affect DS: Data Vitals/I&O Vitals and I&O: Vital Signs Temperature 36.8 C 01/17/25 07:43 Temperature Source Temporal Artery Scan 01/17/25 07:43 Pulse 106 H 01/17/25 07:43 Pulse Rhythm Regular 01/09/25 19:05 Pulse 60 01/09/25 18:10 Respiratory Rate 16 01/17/25 07:43 Respiratory Effort Normal, Non-Labored 01/09/25 19:05 Respiratory Depth Normal 01/09/25 19:05 Respiratory Pattern Normal 01/09/25 19:05 Blood Pressure 110/80 01/17/25 07:43 Blood Pressure Mean 90 01/17/25 07:43 Blood Pressure Position Sitting 01/09/25 14:09 Pulse Oximetry 98 01/17/25 07:43 Oxygen Delivery Method Room Air 01/17/25 07:49 Oxygen Flow Rate 0 01/17/25 07:49 Pain Level 0 01/17/25 04:27 Comment RN Notified 01/16/25 11:24 Intake & Output 01/16/25 01/16/25 01/17/25 11:59 23:59 11:59 Intake Total 200 / 770 570 / 770 110 / 110 Output Total 160 / 610 450 / 610 350 / 350 Balance 40 / 160 120 / 160 -240 / -240 Weight 84 kg 82.7 kg Intake: IV 200 / 400 200 / 400 110 / 110 Oral 370 / 370 Output: Chest Tube Drainage 160 / 610 450 / 610 50 / 50 Urine 300 / 300 Other: Comment voids independently with help of Patient voids using bedpan with 's help. 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, treated with steroids/IVIG Type II spinal muscular atrophy Surgical History (Updated 01/09/25 @ 17:05 by López Brewer) S/P tubal ligation S/P cholecystectomy 2006 Hx of spinal surgery metal rods in back x 2 Family History (Updated 01/09/25 @ 17:04 by López Brewer) Paternal Grandfather Colon cancer Father Diabetes Social History (Updated 01/09/25 @ 16:58 by López Brewer) Smoking/Tobacco Use Status: Never Smoking risk assessment performed?: Yes Alcohol Intake: never Drug use: Never Housing: house Do you feel safe at home: Yes Do you feel safe in your relationship?: Yes Additional Social history: Lives in [place] with and 2 kids 8 and 5 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
--- NOTE | 2025-01-17 09:39 | CMDISCH_ITS ---
Date of service: 01/17/25 Time of Service: 09:40 LACE Index Scoring Tool Questions: Length of Stay (in days): 7 - 13 Was the patient admitted via the E.D.?: Yes E.D. Visits: 1 Answers: Total Score: 9 Risk of Readmission: Low Risk Care Management Discharge Plan Reason for Hospitalization: Pleural effusion Discharge Plan: Patient is accepted and transferring to [facility] [place] for [place]othoracic. Plan to transfer later today via EMS. Patient/Family Education Needs: Review of discharge instructions, activity, limitations, and plan of care. Discuss ask me three. SDOH Health Related Social Needs: Health related social needs material hardship
[2025-01-17] MEDS: Albuterol 2.5 MG/3 ML INH SOLN VIAL UPD (12:52)
[2025-01-17 12:56] VITALS: PULSE 128; RESP 26; O2SAT 97
[2025-01-17] MEDS: Ibuprofen 200 MG TAB 400 MG PO (14:50)
[2025-01-17 19:30] VITALS: BP 115/85; PULSE 114; RESP 20; TEMP 35.8; O2SAT 98
[2025-01-17 19:56] VITALS: O2SAT 98
[2025-01-17] MEDS: Prenatal Multivitamin w/CA,FE TAB 1 TAB PO (20:26)
[2025-01-17] MEDS: Loratidine 10 MG TAB PO (20:27)
[2025-01-17] MEDS: Folic Acid 1 MG TAB PO (20:27)
[2025-01-17 20:45] VITALS: BP 115/85; PULSE 111; RESP 15; TEMP 36.4; O2SAT 98
== END 2025-01-17 20:59 | disposition short-term general hospital (02) | DRG 177 ==
LOC: ER 17:01 → MS 18:51
PROVIDERS: Family Medicine; Hospitalist; Internal Medicine Pulmonary Disease; Admitting Provider Family Medicine; Emergency Provider Student in an Organized Health Care Education/Training Program; PCP Nurse Practitioner Family; Responsible Provider Family Medicine; Visit Provider Family Medicine
DX: J86.9 Pyothorax without fistula (principal); J13 Pneumonia due to Streptococcus pneumoniae; D58.9 Hereditary hemolytic anemia, unspecified; J98.11 Atelectasis; G12.1 Other inherited spinal muscular atrophy; D84.821 Immunodeficiency due to drugs; D59.5 Paroxysmal nocturnal hemoglobinuria [Marchiafava-Micheli]; Z99.3 Dependence on wheelchair; D69.6 Thrombocytopenia, unspecified; J45.909 Unspecified asthma, uncomplicated; F41.9 Anxiety disorder, unspecified; I10 Essential (primary) hypertension; Z73.89 Other problems related to life management difficulty; R60.0 Localized edema; Z79.899 Other long term (current) drug therapy
CPT/HCPCS: 32551; 32561; 32562 ×3; 00123; 36415; 71250; 80048; 80053; 84145; 85027; 86850; 86900; 86901; 86920; 87077; 87116; 87206; 93005; 94640; 96365; 96375; 99285; J1650; 71045; 71046; 81373; 82330; 83540; 83550; 83615; 83735; 83880; 84157; 84484; 85014; 85018; 85610; 85730; 87070; 87075; 87186; 87205; 87899; 88104; 89051; 93010; 93306; 94660; 94664; 94667; 94760; 99223; 99232; 99233; 99238; J0295; J0696; J1938; J2003; J2405; J2997; J3010; J3480; J7613; J7639; P9016

== ENCOUNTER 2025-01-30 12:27 | Outpatient (CLI) | payer BC, SELFPAY ==
--- NOTE | 2025-01-30 13:45 | DI.RAD_ITS ---
Exam(s) XR CHEST 2V PA LATERAL EXAM: XR CHEST 2V PA LATERAL CLINICAL HISTORY: J90 Pleural effusion, eval for PTX /effusion, s/p LT decortication empyema TECHNIQUE: 2D digital imaging was performed. Two views. COMPARISON: CR,XR XR PORTABLE CHEST AP from 01/15/[address] CHEST WO from 01/16/2025 FINDINGS: Exam is limited by under penetration. The lateral view shows suboptimal pulmonary inflation. HEART: Normal size. Aorta: Not dilated. PULMONARY VASCULATURE: Normal. MEDIASTINUM: Unremarkable. LUNGS: The right lung remains clear. Blunting at the left costophrenic angle and left-sided pleural thickening and increased basilar densities are again noted. The previously noted pleural drainage catheter has been removed. No pneumothorax. BONE:Spinal rods. SOFT TISSUES: Unremarkable. IMPRESSION: Some improvement in left pleural effusion and increase left-sided pulmonary densities. DATA REPOSITORY: RADIATION DOSE DELIVERED:
== END 2025-01-30 12:47 ==
LOC: DI 12:28
PROVIDERS: PCP Nurse Practitioner Family; Visit Provider Thoracic Surgery (Cardiothoracic Vascular Surgery)
DX: J90 Pleural effusion, not elsewhere classified (principal)
CPT/HCPCS: 71046

== ENCOUNTER → 2025-02-20 10:57 | Outpatient (CLI) | payer BC, SELFPAY ==
--- NOTE | 2025-02-20 | DI.RAD_ITS ---
Exam(s) XR CHEST 2V PA LATERAL EXAM: XR CHEST 2V PA LATERAL CLINICAL HISTORY: PLEURAL EMPYEMA,J86.9,S/P LT VATS DECORTICATION,NEW ONSET COUGH AND PAIN WI TECHNIQUE: 2D digital imaging was performed. Two views. COMPARISON: CT CT CHEST WO from 01/16/2025 CR XR CHEST 2V PA LATERAL from 01/30/2025 FINDINGS: HEART: Normal size. Aorta: Not dilated. PULMONARY VASCULATURE: Normal. MEDIASTINUM: Unremarkable. LUNGS: Stable blunting at the left costophrenic angle and pleural thickening along left chest. Areas of scarring noted in the left lung. There is no definite new infiltrate. Right lung is clear. PLEURAL SPACE: No pleural effusion or pneumothorax. BONE:Rods are again noted in the spine. SOFT TISSUES: Unremarkable. IMPRESSION: Stable appearance of the left chest with volume loss and pleural thickening as well as pulmonary scarring. No visible pneumonia. DATA REPOSITORY: RADIATION DOSE DELIVERED:
== END ==
LOC: DI 10:57
PROVIDERS: PCP Nurse Practitioner Family; Visit Provider Physician Assistant Surgical
DX: J86.9 Pyothorax without fistula (principal)
CPT/HCPCS: 71046

== ENCOUNTER 2025-03-13 09:08 | Outpatient (CLI) | payer BC, SELFPAY ==
[2025-03-13 17:03] LABS: Abs Immature Grans 0.01 10^3/uL (0.0-0.06); HCT 36.0 % (36.0-46.0); HGB 11.0 g/dL (11.2-15.7); Immature Grans % 0.1 %; MCH 29.9 pg (27.0-33.0); MCHC 30.6 % (32.0-36.0); MCV 98 fL (80-95); MPV 8.6 fL (8.0-11.0); Platelet Count 158 10^3/uL (130-400); RBC 3.68 10^6/uL (3.93-5.22); RDW 20.5 % (11.7-14.6); RDW-SD 72.5 fL; WBC 7.13 10^3/uL (4.4-10.8)
[2025-03-13 17:20] LABS: Anisocytosis 1+
[2025-03-13 18:08] LABS: LDH 192 U/L (120-246)
[2025-03-13 18:28] LABS: ALT 18 U/L (10-49); AST 17 U/L (<34); Albumin 3.9 g/dL (3.2-5.0); Alkaline Phosphatase 120 U/L (46-116); Anion Gap 8.8 mmol/L (3-11); BUN 7 mg/dL (9-23); Bilirubin, Total 0.90 mg/dL (0.2-1.2); CO2 26.2 mmol/L (20.0-31.0); Calcium 9.3 mg/dL (8.3-10.6); Chloride 105 mmol/L (98-107); Glucose 70 mg/dL (74-106); Potassium 4.1 mmol/L (3.5-5.1); Sodium 140 mmol/L (136-145); Total Protein 7.6 g/dL (5.7-8.2)
== END 2025-03-13 09:09 | disposition home or self-care (01) ==
LOC: LBO 09:08
PROVIDERS: PCP Nurse Practitioner Family; Visit Provider Internal Medicine
DX: D59.5 Paroxysmal nocturnal hemoglobinuria [Marchiafava-Micheli] (principal)
CPT/HCPCS: 36415; 80053; 83010; 83615; 85025

== ENCOUNTER → 2025-04-09 15:48 | Outpatient (CLI) | payer BC, SELFPAY ==
--- NOTE | 2025-04-09 | DI.RAD_ITS ---
Exam(s) XR CHEST 2V PA LATERAL EXAM: XR CHEST 2V PA LATERAL CLINICAL HISTORY: R07.9 Chest pain, unspecified, left sided chest pain. TECHNIQUE: 2D digital imaging was performed. COMPARISON: CR XR CHEST 2V PA LATERAL from 02/20/2025 FINDINGS: 2 views: Nino rods again noted in the thoracic-lumbar spine Heart size is normal. The mediastinum is not widened. Right lung remains clear. Left hydropneumothorax again noted. The size of pneumothorax is slightly decreased. The size of the pleural effusion also slightly decreased. There is no shift of midline structures. There is platelike atelectasis in the lingular segment of the left lung. This is somewhat improved. IMPRESSION: Left hydropneumothorax again noted. The size of the pneumothorax component has slightly decreased. The size of the pleural effusion has also slightly decreased. DATA REPOSITORY: RADIATION DOSE DELIVERED:
--- NOTE | 2025-04-09 16:20 | DI.VRAD_ITS ---
PROCEDURE INFORMATION: Exam: XR Chest Exam date and time: 04/09/2025 3:52 PM Age: 44 years old Clinical indication: Pain; Left-sided; Prior surgery; Surgery date: 6+ months; Surgery type: Spinal surgery - 2 metal rods in the back TECHNIQUE: Imaging protocol: Radiologic exam of the chest. Views: 2 views. COMPARISON: CR XR CHEST 2V PA LATERAL 02/20/2025 12:12 PM FINDINGS: Lungs: The left lung appears slightly more aerated on this examination with decreased consolidation. The right lung appears clear. Pleural spaces: There is redemonstration of a left pleural effusion, which appears slightly decreased in size compared to the prior examination. Heart/Mediastinum: No cardiomegaly. Bones/joints: There is redemonstration of thoracic spine surgical fusion. IMPRESSION: Slightly improved appearance of left lung consolidation and left pleural effusion. Dictated and Authenticated by: Violet Collado MD. Orderin Yogi Valdovinos MD
== END ==
LOC: DI 15:48
PROVIDERS: PCP Nurse Practitioner Family; Visit Provider Nurse Practitioner Family
DX: R07.9 Chest pain, unspecified (principal); J94.8 Other specified pleural conditions
CPT/HCPCS: 71046